=== PATIENT | male | born 1955 | race Two or more races ===

== ENCOUNTER → 2020-01-31 09:23 | Outpatient (BNVA) | payer OTHER, SELFPAY | PROVIDERS: PCP Internal Medicine; Visit Provider Orthopaedic Surgery | DX: M25.562 Pain in left knee (principal) | CPT/HCPCS: 99202 ==

== ENCOUNTER 2020-02-07 12:13 | Outpatient (REF) | payer OTHER, SELFPAY ==
--- NOTE | 2020-02-07 12:11 | CT_ITS ---
EXAMINATION: CT ABDOMEN AND PELVIS WITH CONTRAST CLINICAL INFORMATION: Epigastric pain and weight loss. COMPARISON: Prior CT examinations of the CT abdomen and pelvis, most recently 06/12/2016. TECHNIQUE: Multidetector volumetric images were obtained from the superior aspect of the liver through the pubic symphysis following administration 85 mL of Omnipaque 350 intravenous contrast. Sagittal and coronal reformatted images were obtained on the technologist's workstation. Oral contrast: No This CT examination was performed using dose optimization techniques as appropriate, variously including the following: *Automated exposure control *Adjustment of mA and/or kV according to patient size (this includes techniques or standardized protocols for targeted exams where dose is matched to indication/reason for exam; i.e. extremities or head) *Use of iterative reconstruction technique DLP: 3:15 mGy-cm FINDINGS: LUNG BASES: The visualized lung bases are unremarkable. There are coronary artery atherosclerotic calcifications. LIVER, GALLBLADDER, AND BILIARY TREE: The liver is normal in size, shape, and attenuation. No focal hepatic lesion or biliary ductal dilatation is present. The gallbladder is unremarkable with no evidence of radiopaque gallstones, gallbladder wall thickening, or obvious pericholecystic inflammatory changes. PANCREAS: Unremarkable. SPLEEN: Unremarkable. ADRENAL GLANDS: Unremarkable. KIDNEYS AND URETERS: The kidneys are normal in size, shape, and attenuation. No hydronephrosis, hydroureter, or calculi seen. There are stable small low-attenuation bilateral renal probable cysts, too small to fully characterize with CT. Given their stability from 01/15/2015, these are considered benign. No perinephric stranding. BLADDER: Unremarkable. GASTROINTESTINAL TRACT: The small and large bowel are unremarkable. There is no bowel obstruction, free intraperitoneal air or abscess. No diverticulosis or diverticulitis is seen. The vermiform appendix is not visualized with certainty. ABDOMINAL WALL: No significant hernia is appreciated. LYMPH NODES: Normal. VASCULAR: There is mild aortoiliac atherosclerotic calcification. No abdominal aortic aneurysm is seen. PELVIC VISCERA: The prostate and seminal vesicles are unremarkable. OSSEOUS STRUCTURES: There is multi-level thoracolumbar spondylosis, most pronounced at T11-T12. No acute or aggressive osseous abnormality is seen. IMPRESSION: No acute intra-abdominal finding is seen. There is no bowel obstruction, free intraperitoneal air or abscess. No mass, free fluid or lymphadenopathy is seen. There is no urinary calculus or obstructive uropathy. There are coronary artery atherosclerotic calcifications.
[2020-02-07] MEDS: Barium Sulfate Oral (Berry) 450 ML ORAL.SUSP 900 ML PO (15:08)
== END 2020-02-07 12:14 | disposition home or self-care (01) ==
LOC: HO.CT 12:13
PROVIDERS: PCP Internal Medicine; Visit Provider Internal Medicine
DX: R10.84 Generalized abdominal pain (principal)
CPT/HCPCS: 74177

== ENCOUNTER 2020-09-30 07:49 | Outpatient (REF) | payer MEDICARE, MEDICAID, SELFPAY ==
[2020-09-30 08:58] LABS: MANUAL DIFF FLAG NO
[2020-09-30 09:13] LABS: Basophils Percent Auto 0.7 % (0-2); Eosinophils Absolute Auto 0.1 X10*3/uL (0.0-0.4); Eosinophils Percent Auto 2.4 % (0-4); Hematocrit 44.4 % (42-52); Hemoglobin 15.1 g/dl (14.0-18.0); Imm Gran Abs Auto 0.02 X10*3/uL (0.00-0.03); Imm Gran Pct Auto 0.4 % (0.0-0.4); Lymphocytes Absolute Auto 2.5 X10*3/uL (1.2-4.9); Lymphocytes Percent Auto 46.2 % (20-40); Mean Corpuscular Hemoglobin 31.5 pg (27.0-33.0); Mean Corpuscular Volume 92.5 fL (80-98); Mean Platelet Volume 10.4 fL (9.4-12.4); Monocytes Absolute Auto 0.5 X10*3/uL (0.1-1.2); Monocytes Percent Auto 9.3 % (2-11); Neutrophils Absolute Auto 2.3 X10*3/uL (2.0-8.3); Platelet Count 211 X10*3/uL (160-400); Red Cell Distribution Width 13.4 % (11.0-16.0); White Blood Count 5.5 X10*3/uL (4.8-10.8)
[2020-09-30 09:28] LABS: Alanine Aminotransferase 9 U/L (0-40); Albumin Level 3.9 g/dL (3.5-5.0); Alkaline Phosphatase 63 U/L (39-117); Anion Gap 12 (12-20); Aspartate Amino Transferase 13 U/L (5-37); Bilirubin Total 0.7 mg/dL (0.0-1.0); Blood Urea Nitrogen 19 mg/dL (9-16); Calcium 8.8 mg/dL (8.4-10.2); Carbon Dioxide 26 mmol/L (22-29); Chloride 107 mmol/L (96-108); Cholesterol 184 mg/dL; Estimated Glomerular Filt Rate > 60; Glucose Fasting 100 mg/dL (60-99); HDL Cholesterol 33 mg/dL; LDL Cholesterol Calculated 134 mg/dl; Potassium 4.5 mmol/L (3.3-5.1); Sodium 140 mmol/L (135-145); Total Protein 6.8 g/dL (6.5-8.0); Triglycerides 86 mg/dL
== END 2020-09-30 07:50 | disposition home or self-care (01) ==
LOC: HO.LAB 07:49
PROVIDERS: PCP Internal Medicine; Visit Provider Internal Medicine
DX: Z00.01 Encounter for general adult medical examination with abnormal findings (principal); E78.00 Pure hypercholesterolemia, unspecified; I10 Essential (primary) hypertension; M23.92 Unspecified internal derangement of left knee; Z95.1 Presence of aortocoronary bypass graft
CPT/HCPCS: 36415; 80053; 80061; 85025

== ENCOUNTER 2020-10-20 08:19 | Outpatient (REF) | payer MEDICARE, MEDICAID, SELFPAY | END 2020-10-20 08:20 | disposition home or self-care (01) | LOC: HO.HOSX 08:19 | PROVIDERS: Visit Provider Orthopaedic Surgery | DX: Z13.89 Encounter for screening for other disorder (principal) ==

== ENCOUNTER 2021-01-02 08:19 | Emergency (ER) | payer MEDICARE, MEDICAID, SELFPAY ==
[2021-01-02 08:23] VITALS: BP 148/87; PULSE 70; RESP 18; TEMP 36.8; O2SAT 98; BMI 23.8
[2021-01-02] MEDS: Acetaminophen 325 MG TABLET 650 MG PO (08:54)
--- NOTE | 2021-01-02 09:16 | ED.URI ---
HPI - URI/Sore Throat General Chief Complaint: Upper Respiratory Symptoms Stated Complaint: NASAL CONGESTION CHEST DISCOMPFORT Time Seen by Provider: 01/02/21 08:40 Source: patient Mode of arrival: ambulatory History of Present Illness HPI Narrative: 65-year-old male w/ past medical history of CAD s/p cardiac catheterization x3 presenting to the ED complaining subjective fever, chills, headache, myalgias, dry cough x3 days s/p receiving the flu vaccine on Tuesday. Denies CP/SOB, abdominal pain, recent travel, COVID-19 exposure, ear pain, throat pain MD elicited complaint: cough and nasal congestion Related Data Home Medications Medication Instructions Recorded Confirmed atorvastatin 80 mg tablet 80 mg PO DAILY 01/31/20 clonazepam 0.5 mg tablet 0.5 mg PO BID PRN 01/31/20 lisinopril 5 mg tablet 5 mg PO DAILY 01/31/20 metoprolol tartrate 25 mg tablet 25 mg PO BID 01/31/20 Allergies Allergy/AdvReac Type Severity Reaction Status Date / Time No Known Allergies Allergy Verified 01/31/20 09:45 [No Known Allergies*] Review of Systems Review of Systems: Constitutional: No Fever, No Chills ENT/Mouth: No Ear Pain, + Nasal Congestion, No Sinus Pain, No Hoarseness, No sore throat, + Rhinorrhea, No Swallowing Difficulty Cardiovascular: No Chest Pain, No SOB Respiratory: + Cough, No Sputum, No Wheezing Gastrointestinal: No Nausea, No Vomiting, No Diarrhea, No Constipation, No Abdominal pain Genitourinary: No Dysuria, No Urinary Frequency, No Hematuria Musculoskeletal: No joint pain, + Myalgias, No Joint Swelling Skin: No Skin Lesions, No rash Neuro: No Weakness, No Numbness, No Paresthesias Yes all other systems are reviewed and are negative [facility] Past Medical History Attestation statement: The following information was validated with the patient. Medical History (Updated 01/02/21 @ 10:07 by ENOCH Granado) Left knee pain Surgical History History of cardiac catheterization (~2006) History of colonoscopy (~2018) S/P CABG x 3 (~2017) Social History Social History Advance Directives: No Advance Directives Information Provided: No Physical Exam Vital Signs: Vital Signs: Last Vital Signs Temp 98.3 F 01/02/21 08:23 Pulse 70 01/02/21 08:23 Resp 18 01/02/21 08:23 BP 148/87 H 01/02/21 08:23 Pulse Ox 98 01/02/21 08:23 Body Mass Index 23.8 Const: General: cooperative, healthy appearing and no acute distress Orientation/consciousness: patient oriented x3 Limitations: no limitations HENMT: Head: Yes normal to inspection Ears: hearing grossly normal bilaterally and external ears normal General nose exam: Normal external nose present Face and sinus: Yes normal facial exam Mouth: Normal oral and palatal mucosa present Throat: Yes posterior oropharynx normal, Yes tonsils normal, Yes uvula midline, No peritonsillar mass and No uvular edema Eyes: General: appearance normal, both eyes and all related structures EOM: EOMs intact bilaterally Neck: Neck: Yes normal visual inspection and Yes no lymphadenopathy Resp: Effort & Inspection: normal respiratory effort Auscultation: clear to auscultation bilaterally, no rales, no rhonchi and no wheezes Cardio: Rate: regular rate Heart sounds: S1 normal heart sound present and S2 normal heart sound present GI: Inspection: Yes normal to inspection Palpation (GI): Soft to palpation, nontender, no guarding and not rigid Skin: Rashes: no rashes Wounds: no wounds Neuro: General: patient oriented x3 Gait exam (Neuro): Normal gait present Extrem: Other: No erythema/cellulitis or ecchymosis at left deltoid injection site General: Yes normal to inspection Course Course Course Narrative: -patient is COVID-19 positive >> discussed with patient with mailroom coordinator. Discussed self isolation, worrisome signs and symptoms and strict return precautions, he verbalized understanding feel safe for discharge home MDM - URI/Sore Throat MDM Narrative Medical decision making narrative: 65-year-old male w/ past medical history of CAD s/p cardiac catheterization x3 presenting to the ED complaining subjective fever, chills, headache, myalgias, dry cough x3 days s/p receiving the flu vaccine on Tuesday. On exam vital signs stable, NAD/nontoxic appearing, lungs CTA. Likely side effect of flu vaccination. Will obtain COVID-19/influenza/RSV swab to rule out active viral syndrome. Lab Data Labs: Lab Results 01/02/21 Range/Units 08:51 Coronavirus (PCR) POSITIVE A (Negative) Influenza Type A (PCR) NEGATIVE (Negative) Influenza Type B (PCR) NEGATIVE (Negative) RSV RNA Qual (PCR) NEGATIVE (Negative) Discharge Plan Discharge Clinical Impression: COVID-19 Patient Disposition: Home, Self-Care Instructions: COVID-19 (Coronavirus Disease 2019) (ED) Additional Instructions: YOU HAVE COVID-19 At this time you will be okay for discharge. Please plan for self quarantine for 10 -14 days. Do not expose yourself to others. You may not go to work. Please continue to follow cold instructions and wash your hands frequently. You may take Tylenol as directed on the bottle for pain or fever. IF YOU DEVELOP ANY PERSISTENT OR WORSENING SHORTNESS OF BREATH, CHEST PAIN, OR FEVER UNRESOLVED WITH TYLENOL/MOTRIN AT HOME PLEASE RETURN TO THE ED CDC Guidelines for home isolation: - Stay away from others - WEAR A MASK if you are sick AND STAY HOME - Cover your mouth and nose with a tissue when you cough or sneeze. Dispose of tissues in a lined trash can and wash your hands immediately with soap and water for at least 20 seconds. If soap and water are not available, clean hands with alcohol-based hand certified legal investigator that contains at least 60% alcohol. - Clean your hands often with soap and water for at least 20 seconds - Avoid touching your eyes, nose and mouth with unwashed hands - Do not share dishes, drinking glasses, cups, eating utensils, towels, or bedding with other people in your home. After using these items, wash them thoroughly with soap and water or put in the electronic publishing specialist. - Clean high-touch surfaces in your isolation area ( sick room and bathroom) every day; let a caregiver clean and disinfect high-touch surfaces in other areas of the home. Clean the area or item with soap and water or another detergent if it is dirty. Then, use a household disinfectant. - Limit contact with pets and animals: If you must care for a pet, wash your hands before and after interacting with them) TIENE COVID-19 En rossana momento estar? fermin para el davin. Planifique la auto cuarentena joi 10 a 14 d?as. No se exponga a los dem?s. Puede que no vaya a trabajar. Contin?e siguiendo las instrucciones en fr?o y l?vese las mario con frecuencia. Puede dinorah Tylenol isaias se indica en el frasco para el dolor o la fiebre. SI USTED DESARROLLA CUALQUIER DIFICULTAD AL RESPIRAR, DOLOR EN EL PECHO O FIEBRE QUE NO SE RESUELVE CON TYLENOL / MOTRIN EN CASA, POR FAVOR REGRESE AL ED. Pautas de los CDC para el aislamiento en el hogar: - Mantente alejado de los dem?s. - USE POLY M?SCARA si est? enfermo Y QU?DESE EN CASA - C?brase la boca y la nariz con un pa?uelo cuando tosa o estornude. Deseche los pa?uelos desechables en un bote de basura forrado y l?vese las mario inmediatamente con agua y jab?n joi al menos 20 segundos. Si no dispone de agua y jab?n, l?vese las mario con un desinfectante para mario a base de alcohol que contenga al menos un 60% de alcohol. - L?vese las mario con frecuencia con agua y jab?n joi al menos 20 segundos. - Evite tocarse los ojos, la nariz y la boca con las mario sin veronique. - No comparta platos, vasos, tazas, cubiertos, toallas o ropa de cama con otras personas en rivas hogar. Despu?s de usar estos art?culos, l?velos fermin con agua y jab?n o col?quelos en el lavavajillas. - Limpie las superficies de alto contacto en rivas ?sera de aislamiento ( habitaci?n de enfermo y ba?o) todos los d?as; deje que un cuidador limpie y desinfecte las superficies de alto contacto en otras ?reas de la casa. Limpie el ?sera o el art?culo con agua y jab?n u otro detergente si est? sucio. Luego, use un desinfectante dom?stico. - Limite el contacto con mascotas y animales: si debe cuidar a poly mascota, l?vese las mario antes y despu?s de interactuar con ellos) Referrals: Telma Funez A [Emergency Nurse] - 3 days (call) Print Language: Marshallese
[2021-01-02 09:33] LABS: Influenza A PCR NEGATIVE (Negative); Influenza B PCR NEGATIVE (Negative); Resp Syncy Virus RNA Qual PCR NEGATIVE (Negative); SARS COV2 PCR INHOUSE POSITIVE (Negative)
== END 2021-01-02 10:35 | disposition home or self-care (01) ==
PROVIDERS: Physician Assistant; Emergency Provider Student in an Organized Health Care Education/Training Program; PCP Internal Medicine
DX: U07.1 COVID-19 (principal); R05 Cough; I25.10 Atherosclerotic heart disease of native coronary artery without angina pectoris; R51.9 Headache, unspecified; M79.10 Myalgia, unspecified site; Z79.899 Other long term (current) drug therapy
CPT/HCPCS: 0241U; 36415; 99283

== ENCOUNTER 2021-02-03 08:30 | Outpatient (REF) | payer MEDICARE, MEDICAID, SELFPAY | END 2021-02-03 08:31 | disposition home or self-care (01) | LOC: HO.LAB 08:30 | PROVIDERS: PCP Internal Medicine; Visit Provider Internal Medicine | DX: Z20.822 Contact with and (suspected) exposure to COVID-19 (principal) | CPT/HCPCS: C9803; U0003; U0005 ==

== ENCOUNTER → 2021-03-23 08:23 | Outpatient (REF) | payer MEDICARE, MEDICAID, SELFPAY ==
--- NOTE | ~2021-03-23 | NM_ITS ---
Lexiscan Myocardial perfusion study Indication: Coronary disease, history of sestamibi, assess for ischemia Technique: The patient was brought in for a Lexiscan perfusion study on 03/23/2021 and was injected 0.4 mg of Lexiscan intravenously. Within a minute of this injection 25 mCi of sestamibi was given intravenously. Images were obtained using the SPECT gamma camera interlaced with the gating device. Images were obtained in supine position. Resting perfusion study was performed on 03/24/2021. Patient was administered 25 mCi of sestamibi intravenously at rest. Images were then obtained in supine position. Total DLP 87mGy-cm. Images were processed with the software and compared side to side in short axis, horizontal long axis and vertical long axis views. Findings: Raw acquisition was reviewed. The stress perfusion study showed no significant perfusion abnormality. Both uncorrected as well as CT attenuation corrected images were reviewed. The gated study shows normal LV systolic function with calculated LVEF of 63%. LV cavity is normal in size. The gated study shows normal wall thickening and contraction of segments. Resting study shows no significant perfusion abnormality. Gating at rest reveals normal wall motion with ejection fraction at 47%. The findings are consistent with no reversible or fixed perfusion abnormality. NM/NM cary perf SPECT rest & str Impression: 1. Myocardial perfusion imaging study shows normal myocardial perfusion. 2. Gated LVEF is 63% during stress and 47% during rest. 3. Transient ischemic dilatation not present. EKG component of the test reported separately.
--- NOTE | 2021-03-23 08:27 | CA_ITS ---
Acquisition Time: 2021-03-23 08:27:55 Total Exercise Time: 00:06:18 Test Indications: Ischemia Evaluation Medications: SEE H Protocol: OSCAR Max HR: 121 BPM 79% of Pred: 153 BPM Max BP: 122/080 mmHG Max Work Load: 7.4 METS Exercise stress test with exercise 6 min 18 sec of Oscar protocol, with report of fatigue and need to slow exercise, with blunted chronotropic response achieving only 64% of MPHR, EKGs nondiagnostic for ischemia. Treadmill placed in nrecovery and slowed to 1 MPH, for additional 2.5 min. Testing changed to a pharmacological stress test with Lexiscan injection, without anginal symptoms, with atrial cuplets at times with intermittent RBBB, with normotensive response to injection, with nondiagnostic EKG for ischemia. Nuclear images pending. Test reviewed with Dr Daniel. Referred By: Gustavo Romo Overread By: CHARAN STARK
== END ==
LOC: HO.CARD 08:23
PROVIDERS: Visit Provider Internal Medicine Cardiovascular Disease
DX: I25.2 Old myocardial infarction (principal); I25.758 Atherosclerosis of native coronary artery of transplanted heart with other forms of angina pectoris; I10 Essential (primary) hypertension
CPT/HCPCS: 78452; 93017; A9500; J0280; J2785

== ENCOUNTER 2021-03-27 12:46 | Outpatient (REF) | payer MEDICARE, MEDICAID, SELFPAY ==
[2021-03-27 13:43] LABS: COVID-19 Test Negative (Negative)
== END 2021-03-27 12:47 | disposition home or self-care (01) ==
LOC: HO.LAB 12:46
PROVIDERS: PCP Internal Medicine; Visit Provider Internal Medicine
DX: Z20.822 Contact with and (suspected) exposure to COVID-19 (principal)
CPT/HCPCS: 36415; 87635; C9803

== ENCOUNTER 2021-04-16 08:17 | Outpatient (REF) | payer MEDICARE, MEDICAID, SELFPAY | END 2021-04-16 08:18 | disposition home or self-care (01) | LOC: HO.LAB 08:17 | PROVIDERS: PCP Internal Medicine; Visit Provider Internal Medicine | DX: Z13.89 Encounter for screening for other disorder (principal) ==

== ENCOUNTER 2021-08-25 07:58 | Outpatient (REF) | payer OTHER, MEDICAID, SELFPAY ==
[2021-08-25 09:18] LABS: Alanine Aminotransferase 14 U/L (0-40); Alkaline Phosphatase 61 U/L (39-117); Anion Gap 9 (12-20); Aspartate Amino Transferase 19 U/L (5-37); Bilirubin Total 1.1 mg/dL (0.0-1.0); Blood Urea Nitrogen 15 mg/dL (9-16); Calcium 9.1 mg/dL (8.4-10.2); Carbon Dioxide 28 mmol/L (22-29); Chloride 107 mmol/L (96-108); Cholesterol 114 mg/dL; Estimated Glomerular Filt Rate > 60; Glucose Random 101 mg/dL (60-115); HDL Cholesterol 34 mg/dL; LDL Cholesterol Calculated 63 mg/dl; Potassium 4.6 mmol/L (3.3-5.1); Sodium 139 mmol/L (135-145); Total Protein 6.9 g/dL (6.5-8.0); Triglycerides 85 mg/dL
[2021-08-25 09:40] LABS: Prostate Specific Antigen 2.41 ng/mL (<0.05-4.0); TSH reflex Free T4 1.74 uIU/mL (0.32-4.0)
== END 2021-08-25 07:59 | disposition home or self-care (01) ==
LOC: HO.LAB 07:58
PROVIDERS: PCP Internal Medicine; Visit Provider Internal Medicine
DX: Z12.5 Encounter for screening for malignant neoplasm of prostate (principal); E05.90 Thyrotoxicosis, unspecified without thyrotoxic crisis or storm; E78.00 Pure hypercholesterolemia, unspecified; I10 Essential (primary) hypertension; N40.1 Benign prostatic hyperplasia with lower urinary tract symptoms; Z95.1 Presence of aortocoronary bypass graft
CPT/HCPCS: 36415; 80053; 80061; 84153; 84443

== ENCOUNTER 2021-09-14 08:48 | Outpatient (RCR) | payer OTHER, MEDICAID, SELFPAY ==
[2021-09-14 09:05] VITALS: BP 140/82; PULSE 57
--- NOTE | 2021-09-14 09:56 | MHC.PT.EP ---
[facility] [place] [facility] [place] [facility] [place] Office [address] [phone] F: [phone] F: [phone] F: [phone] F: [phone] Physical Therapy Plan of Care Date of Evaluation: Date of Surgery: NA Diagnosis: Quadriceps tendinitis L knee Assessment: David is a 65 year old male who is referred to PT for quadriceps tendinitis of L knee . He reports of having pain in L knee for the last 2 years following a fall on his knee. He was in PT for the same about 2 years back but had no change in symptoms. He has returned to PT as his symptoms have been getting worse. On PT examination he presents with 6/10 pain starting from his knee and traveling to his low back- L side, TTP over L SI, L distal end of quad, decreased knee and lumbar ROM, decreased muscle strength, altered pelvic symmetry, altered posture, and gait. He is independent with all ADLS but modifies them due to pain. He is retired. He would benefit from skilled PT to address the aforementioned impairments and improve tolerance to functional activities. Frequency and Duration: The patient will be seen 2/week for 5 weeks. Short Term Goals: 1. Pt will have 50% decrease in pain which will help him sleep through the night in 2 weeks 2. Pt will be able to move his trunk and knee through all planes of motion of motion which will help him dress himself without pain in 3 weeks Retirement Goals: 1. Pt will demonstrate an increase in muscle strength by 1 grade which will help him walk,and stand without pain in 4 weeks. 2. Pt will return to PLOF in 5 weeks. Treatment Plan: Modalities to reduce pain, spasms and effusion. Manual therapy to restore motion and function. Therapeutic exercise to improve strength and flexibility. Neuromuscular re-education for posture and balance. Therapeutic activities to return to functional activities of daily living. Electronically signed by: Hui Arceo PT DPT Please sign and return to therapist. Thank you for your referral.
--- NOTE | 2021-09-29 15:47 | MHC.PT.DC ---
[facility] [place] [facility] [place] [facility] [place] [facility] [address] [phone] F: [phone] F: [phone] F: [phone] F: [phone] Physical Therapy Discharge Report Diagnosis: Quadriceps tendinitis L knee Date of Surgery: NA Date of Evaluation: 09/14/21 Date of Discharge: 09/29/21 Treatments to Date: 1 Cancellations to Date: 0 No Shows to Date: 0 Discharge Status: Patient Elected to Stop Discharge Summary: David d/c himself from PT stating he found a PT clinic closer to his house. Electronically signed by: Hui Arceo PT DPT Please sign and return to therapist. Thank you for your referral.
== END 2021-09-29 15:48 | disposition home or self-care (01) ==
LOC: HO.PT 08:48
PROVIDERS: PCP Internal Medicine; Visit Provider Internal Medicine
DX: M76.9 Unspecified enthesopathy, lower limb, excluding foot (principal)
CPT/HCPCS: 97110; 97140; 97161

== ENCOUNTER → 2021-10-29 10:35 | Outpatient (BNVA) | payer OTHER, MEDICAID, SELFPAY | PROVIDERS: PCP Internal Medicine; Visit Provider Urology | DX: N40.1 Benign prostatic hyperplasia with lower urinary tract symptoms (principal); N13.8 Other obstructive and reflux uropathy; N52.9 Male erectile dysfunction, unspecified | CPT/HCPCS: 51798; 99202 ==

== ENCOUNTER 2022-01-20 09:41 | Outpatient (REF) | payer OTHER, MEDICAID, SELFPAY ==
[2022-01-20 10:26] LABS: COVID-19 Test Negative (Negative)
== END 2022-01-20 09:42 | disposition home or self-care (01) ==
LOC: HO.LAB 09:41
PROVIDERS: Visit Provider Internal Medicine
DX: Z20.822 Contact with and (suspected) exposure to COVID-19 (principal)
CPT/HCPCS: 87635; C9803

== ENCOUNTER → 2022-01-29 08:36 | Outpatient (BNVA) | payer OTHER, MEDICAID, SELFPAY | PROVIDERS: PCP Internal Medicine; Visit Provider Urology | DX: N40.1 Benign prostatic hyperplasia with lower urinary tract symptoms (principal); N13.8 Other obstructive and reflux uropathy; N52.9 Male erectile dysfunction, unspecified | CPT/HCPCS: Q3014 ==

== ENCOUNTER 2022-03-08 12:15 | Outpatient (REF) | payer OTHER, MEDICAID, SELFPAY ==
--- NOTE | ~2022-03-08 | XR_ITS ---
EXAMINATION: XR KNEE, LEFT XR KNEE AP STANDING CLINICAL INFORMATION: Pain. COMPARISON: Radiographs dated 05/25/2016. TECHNIQUE: Lateral and axial views of the left knee. AP bilateral standing view of the knees was obtained. FINDINGS: Bones and soft tissues are normal. No fracture or dislocation. There is no left knee joint effusion. There are surgical clips within the medial right knee soft tissues. Alignment is anatomic, without varus or valgus configuration. Joint spaces are well maintained. No abnormal soft tissue calcification. XR/XR knee LT 2V IMPRESSION: Unremarkable left knee radiographs and AP view of the bilateral knees. No unusual degenerative change is seen. This no significant varus or valgus configuration noted bilaterally.
--- NOTE | ~2022-03-08 | XR_ITS ---
EXAMINATION: XR KNEE, LEFT XR KNEE AP STANDING CLINICAL INFORMATION: Pain. COMPARISON: Radiographs dated 05/25/2016. TECHNIQUE: Lateral and axial views of the left knee. AP bilateral standing view of the knees was obtained. FINDINGS: Bones and soft tissues are normal. No fracture or dislocation. There is no left knee joint effusion. There are surgical clips within the medial right knee soft tissues. Alignment is anatomic, without varus or valgus configuration. Joint spaces are well maintained. No abnormal soft tissue calcification. XR/XR knee standing BI IMPRESSION: Unremarkable left knee radiographs and AP view of the bilateral knees. No unusual degenerative change is seen. This no significant varus or valgus configuration noted bilaterally.
== END 2022-03-08 12:16 | disposition home or self-care (01) ==
LOC: HO.HOSX 12:15
PROVIDERS: Visit Provider Orthopaedic Surgery
DX: M25.562 Pain in left knee (principal)
CPT/HCPCS: 20610; 73560; 73565; 99212; J1100

== ENCOUNTER 2022-08-03 07:22 | Outpatient (REF) | payer OTHER, MEDICAID, SELFPAY ==
[2022-08-03 08:38] LABS: Prostate Specific Antigen 3.04 ng/mL (<0.05-4.0)
== END 2022-08-03 07:23 | disposition home or self-care (01) ==
LOC: HO.LAB 07:22
PROVIDERS: PCP Internal Medicine; Visit Provider Urology
DX: N40.1 Benign prostatic hyperplasia with lower urinary tract symptoms (principal); N13.8 Other obstructive and reflux uropathy; Z12.5 Encounter for screening for malignant neoplasm of prostate
CPT/HCPCS: 36415; 84153

== ENCOUNTER → 2022-08-04 15:23 | Outpatient (BNVA) | payer OTHER, MEDICAID, SELFPAY | PROVIDERS: PCP Internal Medicine; Visit Provider Urology | DX: N40.1 Benign prostatic hyperplasia with lower urinary tract symptoms (principal); N13.8 Other obstructive and reflux uropathy; N52.9 Male erectile dysfunction, unspecified | CPT/HCPCS: 99212 ==

== ENCOUNTER 2022-09-30 07:02 | Outpatient (REF) | payer OTHER, MEDICAID, SELFPAY ==
[2022-09-30 07:12] LABS: MANUAL DIFF FLAG NO
[2022-09-30 07:34] LABS: Basophils Percent Auto 0.7 % (0-2); Eosinophils Absolute Auto 0.1 X10*3/uL (0.0-0.4); Eosinophils Percent Auto 2.1 % (0-4); Hemoglobin 15.1 g/dl (14.0-18.0); Imm Gran Abs Auto 0.02 X10*3/uL (0.00-0.03); Imm Gran Pct Auto 0.3 % (0.0-0.4); Lymphocytes Absolute Auto 2.6 X10*3/uL (1.2-4.9); Lymphocytes Percent Auto 45.6 % (20-40); Mean Corpuscular HGB Conc 34.3 g/dl (31.0-36.0); Mean Corpuscular Hemoglobin 31.2 pg (27.0-33.0); Mean Corpuscular Volume 90.9 fL (80.0-98.0); Mean Platelet Volume 10.6 fL (9.4-12.4); Monocytes Absolute Auto 0.6 X10*3/uL (0.1-1.2); Monocytes Percent Auto 10.8 % (2-11); Neutrophils Absolute Auto 2.3 x10*3/uL (2.0-8.3); Neutrophils Percent Auto 40.5 % (45-73); Platelet Count 176 X10*3/uL (160-400); Red Blood Count 4.84 X10*6/uL (4.60-5.80); Red Cell Distribution Width 13.8 % (11.0-16.0); White Blood Count 5.7 X10*3/uL (4.8-10.8)
[2022-09-30 08:48] LABS: Alanine Aminotransferase 16 U/L (0-40); Alkaline Phosphatase 76 U/L (39-117); Anion Gap 11 (12-20); Aspartate Amino Transferase 22 U/L (5-37); Bilirubin Total 0.9 mg/dL (0.0-1.0); Blood Urea Nitrogen 15 mg/dL (9-16); Calcium 9.1 mg/dL (8.4-10.2); Carbon Dioxide 25 mmol/L (22-29); Chloride 108 mmol/L (96-108); Cholesterol 100 mg/dL; Estimated Glomerular Filt Rate > 60; Glucose Random 104 mg/dL (60-115); HDL Cholesterol 29 mg/dL; LDL Cholesterol Calculated 55 mg/dl; Potassium 4.4 mmol/L (3.3-5.1); Sodium 140 mmol/L (135-145); Total Protein 7.1 g/dL (6.5-8.0); Triglycerides 83 mg/dL
== END 2022-09-30 07:03 | disposition home or self-care (01) ==
LOC: HO.LAB 07:02
PROVIDERS: PCP Internal Medicine; Visit Provider Internal Medicine
DX: E78.00 Pure hypercholesterolemia, unspecified (principal); I10 Essential (primary) hypertension; M76.52 Patellar tendinitis, left knee
CPT/HCPCS: 36415; 80053; 80061; 85025

== ENCOUNTER 2023-01-26 09:24 | Outpatient (REF) | payer OTHER, MEDICAID, SELFPAY ==
[2023-01-26 14:48] LABS: MANUAL DIFF FLAG NO
[2023-01-26 15:05] LABS: Basophils Percent Auto 0.7 % (0-2); Eosinophils Absolute Auto 0.1 X10*3/uL (0.0-0.4); Eosinophils Percent Auto 2.3 % (0-4); Hematocrit 44.6 % (42.0-52.0); Lymphocytes Absolute Auto 2.1 X10*3/uL (1.2-4.9); Lymphocytes Percent Auto 47.5 % (20-40); Mean Corpuscular HGB Conc 33.6 g/dl (31.0-36.0); Mean Corpuscular Hemoglobin 31.3 pg (27.0-33.0); Mean Corpuscular Volume 93.1 fL (80.0-98.0); Monocytes Absolute Auto 0.4 X10*3/uL (0.1-1.2); Monocytes Percent Auto 9.4 % (2-11); Neutrophils Absolute Auto 1.7 x10*3/uL (2.0-8.3); Neutrophils Percent Auto 40.1 % (45-73); Platelet Count 144 X10*3/uL (160-400); Red Blood Count 4.79 X10*6/uL (4.60-5.80); Red Cell Distribution Width 14.5 % (11.0-16.0); White Blood Count 4.3 X10*3/uL (4.8-10.8)
[2023-01-26 15:39] LABS: Alanine Aminotransferase 10 U/L (0-40); Albumin Level 4.1 g/dL (3.5-5.0); Alkaline Phosphatase 76 U/L (39-117); Anion Gap 11 (12-20); Aspartate Amino Transferase 20 U/L (5-37); Bilirubin Total 1.3 mg/dL (0.0-1.0); Blood Urea Nitrogen 18 mg/dL (9-16); C Reactive Protein < 0.04 mg/dL (< or = 0.50); Calcium 9.1 mg/dL (8.4-10.2); Carbon Dioxide 27 mmol/L (22-29); Chloride 107 mmol/L (96-108); Cholesterol 135 mg/dL (<200); Estimated Glomerular Filt Rate > 60; Glucose Random 88 mg/dL (60-115); HDL Cholesterol 30 mg/dL (>40); LDL Cholesterol Calculated 87 mg/dL (<100); Potassium 4.1 mmol/L (3.3-5.1); Sodium 141 mmol/L (135-145); Thyroid Stimulating Hormone 2.14 uIU/mL (0.32-4.0); Total Protein 7.4 g/dL (6.5-8.0); Triglycerides 93 mg/dL (<150)
[2023-01-27 04:31] LABS: HIV AB/AG Nonreactive (Nonreactive); HIV Num 1 0.05 S/CO (0.00-0.99); ~HepC Num1 0.07 S/CO (0.00-0.79); ~Hepatitis C Antibody Nonreactive (Nonreactive)
== END 2023-01-26 09:25 | disposition home or self-care (01) ==
LOC: HO.CHCLDS 09:24
PROVIDERS: Visit Provider Family Medicine
DX: I25.708 Atherosclerosis of coronary artery bypass graft(s), unspecified, with other forms of angina pectoris (principal); R10.84 Generalized abdominal pain; E66.3 Overweight
CPT/HCPCS: 36415; 80053; 80061; 84443; 85025; 86140; 86803; 87389

== ENCOUNTER 2023-02-01 11:54 | Outpatient (REF) | payer OTHER, MEDICAID, SELFPAY ==
[2023-02-06 17:23] LABS: Calprotectin, Fecal 83 mcg/g
== END 2023-02-01 11:55 | disposition home or self-care (01) ==
LOC: HO.CHCLNP 11:54
PROVIDERS: Visit Provider Family Medicine
DX: R10.84 Generalized abdominal pain (principal)
CPT/HCPCS: 36415; 83993; 87329

== ENCOUNTER 2023-02-03 09:44 | Outpatient (AMB) | payer OTHER, MEDICAID, SELFPAY ==
--- NOTE | 2023-02-03 09:46 | A.OFFVIS_ITS ---
Intake Intake Visit Reasons: 6M PVR(BPH/Erectile Dys) Intake Note: Patient is present for 6 MO PVR/BPH/ED Current Medication: Tadalafil Blood Thinners: None PVR: 15 mL Taxi Servicer Required: No Accompanied by: Self / Same As Patient Allergies No Known Allergies [No Known Allergies*] Allergy (Verified 10/29/21 11:02) Medication List - Last Reconciled 02/03/23 by Juan Mcclure MD atorvastatin 80 mg PO DAILY clonazepam 0.5 mg PO BID PRN lisinopril 5 mg PO DAILY metoprolol tartrate 25 mg PO BID tadalafil 5 mg PO DAILY PRN 90 days HPI HPI Comments History of Present Illness Details David is a pleasant male. He is a patient of . He is seen for the following urologic conditions - erectile dysfunction - lower urinary tract symptoms Citizen Of [place] translation provided in office by qualified medical oncologist Continue effective voiding Continue effective erections - represcribed tadalafil Check PSA in 6 months since marginally elevated Erectile dysfunction Reports gradually failing erections Able to obtain but cannot maintain erection Success with daily tadalafil 5 mg Lower urinary tract symptoms Mild hesitancy Minimal nocturia Adequate stream incomplete emptying PSA 08/21 2.4, 08/22 3.0 PFSH Medical History Colitis Coronary artery disease involving coronary bypass graft of [place] heart Decrease in appetite H/O urinary retention HTN (hypertension) Hyperlipidemia Left knee pain Peripheral tear of medial meniscus of left knee Surgical History History of colonoscopy (~2018) S/P CABG x 3 (~2017) History of cardiac catheterization (~2006) Family History (Updated 02/03/23 @ 09:55 by JOE Fuentes) Father No problems noted. Mother No problems noted. Social History (Updated 02/03/23 @ 09:55 by JOE Fuentes) Alcohol intake: current Alcohol intake frequency: does not drink Patient Tobacco Use Status: Never used Tobacco Review of Systems Const Denies chills and Denies fever(s) Card Reports no additional complaints and Denies syncope Resp Denies cough GI Denies abdominal pain and Denies heartburn Reports as per HPI and Denies change in libido Neuro Denies syncope Psych Denies change in libido Endo Denies change in libido Physical Exam Const General: cooperative, healthy appearing, comfortable and no acute distress Orientation/consciousness: patient oriented x3 HEENT Face and sinus: Yes normal facial exam Mouth: moist mucous membranes Neck Neck: Yes normal visual inspection, Yes full ROM and Yes trachea midline Chest Chest palpation & inspection: normal inspection of the chest Resp Effort & Inspection: normal respiratory effort, able to speak in complete sentences and no respiratory distress GI Inspection: Yes normal to inspection Back/Spine/Pelvis Cervical Spine: normal cervical lordosis Thoracic/Lumbar Spine: thoracic and lumbar spine normal to inspection Skin General skin exam: no rashes or lesions noted Neuro General: patient oriented x3, gait normal, tone normal and moves all extremities Extrem General: Yes normal to inspection and Yes capillary refill normal Office Procedures Post Void Residual Post Residual Void Post Void Residual (PVR): 15 [id number] Void Residual by ultrasound Results AMB Urinalysis, Automated UA Leukoctes 0 Debora/uL Last Edit by JOE Fuentes on 02/03/23 10:00 UA Nitrite Negative Last Edit by JOE Fuentes on 02/03/23 10:00 UA Urobilinogen 1 mg/dL Last Edit by JOE Fuentes on 02/03/23 10:00 UA Protein 15 mg/dL Last Edit by JOE Fuentes on 02/03/23 10:00 UA pH 6.0 Last Edit by JOE Fuentes on 02/03/23 10:00 UA Blood 0 Jose/uL Last Edit by JOE Fuentes on 02/03/23 10:00 UA Specific [place] 1.030 Last Edit by JOE Fuentes on 02/03/23 10: 00 UA Ketone Negative Last Edit by JOE Fuentes on 02/03/23 10:00 UA Bilirubin 1 mg/dL Last Edit by JOE Fuentes on 02/03/23 10:00 1+ Ronna Heck 02/03/23 10:00 UA Glucose 0 mg/dL Last Edit by JOE Fuentes on 02/03/23 10:00 Results Reviewed Results Reviewed: Laboratory Last Values Urine pH (Auto) 6.0 02/03/23 09:48 Specific [place] (Auto) 1.030 02/03/23 09:48 Urine Protein (Auto) 15 mg/dL 02/03/23 09:48 Glucose (UA)(Auto) 0 mg/dL 02/03/23 09:48 Urine Ketones (Auto) Negative 02/03/23 09:48 Urine Blood (Auto) 0 Jose/uL 02/03/23 09:48 Urine Nitrite (Auto) Negative 02/03/23 09:48 Urine Bilirubin (Auto) 1 mg/dL 02/03/23 09:48 Urine Urobilinogen (Auto) 1 mg/dL 02/03/23 09:48 Leukocyte Esterase (Auto) 0 Debora/uL 02/03/23 09:48 Assessment & Plan Assessment & Plan (1) Erectile dysfunction: Code(s): N52.9 - Male erectile dysfunction, unspecified Qualifiers: Erectile dysfunction type: vasculogenic Vasculogenic erectile dysfunction type: due to arterial insufficiency Qualified Code(s): N52.01 - Erectile dysfunction due to arterial insufficiency (2) BPH w urinary obs/LUTS: Code(s): N40.1 - Benign prostatic hyperplasia with lower urinary tract symptoms; N13.8 - Other obstructive and reflux uropathy Plan Six month follow-up PSA Orders: Orders AMB Post Void Residual by ultrasound Today N39.8 - Other specified disorders of urinary system AMB Urinalysis Automated Today Z13.9 - Encounter for screening, unspecified Prostate Specific Antigen 6 Months N13.8 - Other obstructive and reflux uropathy, N40.1 - Benign prostatic hyperplasia with lower urinary tract symptoms Medications: Refilled 2 tadalafil 5 mg PO DAILY 90 days PRN 90 tabs 1RF sexual activity N52.9 - Male erectile dysfunction, unspecified Patient Instructions: Imaging studies, laboratory and physical exam results were discussed and reviewed in detail. No major barriers to patient understanding were identified. An opportunity to ask questions regarding the treatment plan was provided. All questions were answered. The patient expressed understanding and agreement with the above treatment plan. The patient is aware they should contact our office by phone for worsening of their current condition or the appearance of new urologic symptoms. Compliance is encouraged with any medications and followup testing that is ordered. It is a privilege to participate in the urologic care of your patient. If you have any questions or concerns regarding treatment for the above conditions, or other urologic issues, please do not hesitate to contact me. The office telephone contact is [phone]. This note is constructed using voice recognition software. While every effort has been made to ensure accuracy data coder operator errors may have been included. Yours sincerely, Dr Juan Mcclure MD, [facility] Urology Providers of Expert, Compassionate Care for the Genitourinary System Coding Level of Care Code Est Pt Level 3 (97987) Diagnoses Erectile dysfunction due to arterial insufficiency N52.01 Erectile dysfunction type: vasculogenic Vasculogenic erectile dysfunction type: due to arterial insufficiency BPH w urinary obs/LUTS N40.1; N13.8 CPT Codes Post Residual Void - PVR CPT Code: 79605-Aluv Void Residual by ultrasound ([id number])
== END 2023-02-03 10:18 | disposition home or self-care (01) ==
PROVIDERS: PCP Internal Medicine; Visit Provider Urology
DX: N52.01 Erectile dysfunction due to arterial insufficiency (principal); N40.1 Benign prostatic hyperplasia with lower urinary tract symptoms; N13.8 Other obstructive and reflux uropathy; Z13.9 Encounter for screening, unspecified
CPT/HCPCS: 99213

== ENCOUNTER → 2023-02-03 09:44 | Outpatient (BNVA) | payer OTHER, MEDICAID, SELFPAY | PROVIDERS: Visit Provider Urology | DX: N40.1 Benign prostatic hyperplasia with lower urinary tract symptoms (principal); N13.8 Other obstructive and reflux uropathy; N52.01 Erectile dysfunction due to arterial insufficiency | CPT/HCPCS: 51798; 81003; 99212 ==

== ENCOUNTER 2023-04-13 10:28 | Outpatient (REF) | payer OTHER, SELFPAY ==
--- NOTE | ~2023-04-13 | XR_ITS ---
EXAMINATION: XR LUMBOSACRAL SPINE CLINICAL INFORMATION: SI joint issues and anterior rotation right hip COMPARISON: Lumbar spine 04/26/2016 TECHNIQUE: Three views of the lumbosacral spine. FINDINGS: There are 5 nonrib-bearing lumbar-type vertebral bodies. The height of the vertebral bodies is well-maintained. There is no disc space narrowing. No spondylolisthesis. There is degenerative spur at the anterior endplates of the lower thoracic vertebrae in the lumbar spine. There are also marginal osteophytes laterally bilaterally at L4-L5. The cingulate joints are within normal limits. XR/XR lumbar spine 2-3V IMPRESSION: No acute abnormality. Mild degenerative spondylosis of the spine
--- NOTE | ~2023-04-13 | XR_ITS ---
EXAMINATION: XR HIP, LEFT CLINICAL INFORMATION: Left hip pain COMPARISON: CT 02/07/2020 TECHNIQUE: Two views of the left hip. FINDINGS: Mild left hip osteoarthritis with small marginal osteophytes. No fracture. No suspicious bone lesion. XR/XR hip LT min 2V IMPRESSION: Mild left hip osteoarthritis.
== END 2023-04-13 10:29 | disposition home or self-care (01) ==
LOC: HO.XRAY 10:28
PROVIDERS: PCP Family Medicine; Visit Provider Family Medicine
DX: M53.3 Sacrococcygeal disorders, not elsewhere classified (principal); M76.32 Iliotibial band syndrome, left leg
CPT/HCPCS: 72100; 73502

== ENCOUNTER 2023-05-12 11:37 | Emergency (ER) | payer OTHER, SELFPAY ==
--- NOTE | ~2023-05-12 | XR_ITS ---
EXAMINATION: XR CHEST CLINICAL INFORMATION: Evaluate for pneumonia, cough COMPARISON: Chest radiograph from 06/01/2018 TECHNIQUE: 2 views of the chest were obtained. FINDINGS: No focal consolidation. No pneumothorax. Trachea is midline. Sternotomy wires and surgical clips. Cardiac mediastinal silhouette is not enlarged. Aorta demonstrates mild tortuosity. No large pleural effusion. Degenerative changes of the thoracolumbar spine. Soft tissues are unremarkable. XR/XR chest 2V IMPRESSION: No acute cardiopulmonary process.
[2023-05-12 12:36] VITALS: BP 132/74; PULSE 54; RESP 18; TEMP 36.6; O2SAT 98; BMI 24.9
--- NOTE | 2023-05-12 12:38 | ED_ITS ---
HPI - Abdominal Pain General Chief Complaint: General Medical Stated Complaint: headache, R side pain Time Seen by Provider: 05/12/23 13:26 Source: patient Mode of arrival: ambulatory Limitations: no limitations History of Present Illness HPI narrative: 67 year old male with pmhx significant for BPH and ED presents to the emergency department today for evaluation of headache and right-sided rib pain x3 days. Reports rib pain began after flying home from [place] 3 days ago. Pain is exacerbated with turning the torso and movement. No radiation. States he is unsure if this pain is due to him sitting on the plane for so long. Denies chest pain, shortness of breath, dyspnea, dysuria, hematuria, flank pain. Additionally complains of an intermittent headache over the last 3 days. Pain is localized to bilateral forehead, no radiation. Pain is not exacerbated with position changes. No vision changes. Denies scalp tenderness, jaw claudication, cough. No sick contacts. Related Data Home Medications Medication Instructions Recorded Confirmed atorvastatin 80 mg tablet 80 mg PO DAILY 01/31/20 02/03/23 clonazepam 0.5 mg tablet 0.5 mg PO BID PRN 01/31/20 02/03/23 lisinopril 5 mg tablet 5 mg PO DAILY 01/31/20 02/03/23 metoprolol tartrate 25 mg tablet 25 mg PO BID 01/31/20 02/03/23 Previous Rx's Medication Instructions Recorded tadalafil 5 mg tablet 5 mg PO DAILY PRN sexual activity 02/03/23 90 days #90 tabs baclofen 5 mg tablet 5 mg PO BEDTIME PRN muscle spasm 05/12/23 #7 tabs lidocaine 5 % topical patch 1 patch topical DAILY #15 ea 05/12/23 (Lidoderm) Allergies Allergy/AdvReac Type Severity Reaction Status Date / Time No Known Allergies Allergy Verified 10/29/21 11:02 [No Known Allergies*] Review of Systems Review of Systems Constitutional: No fever, chills, fatigue, night sweats, weight changes ENT/Mouth: No ear pain, hearing loss, nasal congestion, sinus pain, rhinorrhea, sore throat Eyes: No eye pain, swelling, redness, vision changes, discharge Cardio: No chest pain, palpitations, BOCANEGRA, orthopnea, peripheral edema Pulm: No SOB, cough, sputum, wheezing, dyspnea, hemoptysis GI: No nausea, vomiting, hematemesis, abdominal pain, diarrhea, constipation, hematochezia, melena : No irregular bleeding, dysuria, frequency, urgency, hesitancy, hematuria, flank pain, urinary flow changes, urinary incontinence or retention MSK: +back pain, No neck pain, joint pain, myalgias Skin: No lesions, rashes Neuro: No weakness, numbness, paresthesias, LOC, dizziness, headache All other systems reviewed and are negative. [facility] Past Medical History Onset Date is defined in the Problem List Problems that require an onset date and time if occurred within 24 hrs of arrival to the ED Aortic Dissection and Rupture; Neurologic impairment; Cardiopulmonary Arrest; Endotracheal Intubation; Insertion or Replacement of Mechanical Circulatory Assist Device Medical History Colitis Coronary artery disease involving coronary bypass graft of [place] heart Decrease in appetite H/O urinary retention HTN (hypertension) Hyperlipidemia Left knee pain Peripheral tear of medial meniscus of left knee Surgical History History of colonoscopy (~2018) S/P CABG x 3 (~2017) History of cardiac catheterization (~2006) Family History Family History (Updated 02/03/23 @ 09:55 by JOE Fuentes) Father No problems noted. Mother No problems noted. Social History Social History (Updated 02/03/23 @ 09:55 by JOE Fuentes) Alcohol intake: current Alcohol intake frequency: does not drink Patient Tobacco Use Status: Never used Tobacco Advance Directives: No Advance Directives Information Provided: Yes Physical Exam ED Vital Signs: Vital Signs - 24 hr 05/12/23 12:36 05/12/23 15:49 Temperature 97.9 F 97.4 F Pulse Rate 54 55 Respiratory Rate 18 16 Blood Pressure 132/74 148/79 H Pulse Oximetry 98 99 Oxygen Delivery Method Room Air Room Air BMI result Body Mass Index 24.9 Vital signs stable. Not tachycardic. Const Other: Nontoxic appearing General: cooperative, healthy appearing, comfortable, no acute distress, alert, awake and Physically active Orientation/consciousness: patient oriented x3 HENMT Head: Yes normal to inspection, Yes normocephalic and Yes atraumatic Eyes General: appearance normal, both eyes and all related structures Pupils: Equal, round and reactive pupils present EOM: EOMs intact bilaterally Neck Neck: Yes normal visual inspection, Yes full ROM and Yes no meningeal signs Chest Other: + reproducible tenderness overlying the right anterior 7th and 8th ribs, no overlying skin changes, no palpable deformity. Resp Effort & Inspection: normal respiratory effort, able to speak in complete sentences, no respiratory distress, no use of accessory muscles and symmetric chest movement Auscultation: clear to auscultation bilaterally Cardio Rate: regular rate Rhythm: regular rhythm Peripheral pulses: Peripheral pulses 2+ throughout GI Inspection: Yes normal to inspection Palpation (GI): Soft to palpation, nontender and no guarding General: Yes no CVA tenderness Back/Spine/Pelvis Back: no CVA tenderness Skin General skin exam: no rashes or lesions noted Neuro Other: Strength 5/5 intact throughout.? Sensation intact to light touch.? Neurovascular intact. General: patient oriented x3, gait normal and no meningeal signs Cranial nerves: Yes Equal, round and reactive pupils present Gait exam (Neuro): Normal gait present Motor exam (neuro): Pronator motor function not present Coordination: [id number] test normal, [id number] test normal and Normal rapid alternating movements of the distal upper extremity present (Neuro) Pupils: Normal pupillary reactivity/response: bilateral Extrem General: Yes no calf tenderness Course Course Course Narrative: Back from [place] 3 days ago. Right flank pain and headache starting yesterday. Right side hurts when he coughs and moves and exacerbated by inspiration. He believes the pain is from the ribs. Denies fever or chills, n/v/d. Using ibuprofen 800 mg, with last dose this morning. Denies SOB or CP. RME: NAD, A&Ox4, [place] x 4 w/good strength, LS CTA, HR nathaly 54 RME completed by Nick Reevaluation(s) Reevaluation #1: [id number]-- on re-evaluation, patient reports resolution of both headache and rib pain with Toradol, lidocaine patch, Reglan and Benadryl. Serology negative for COVID and influenza. Chest x-ray does not demonstrate pneumothorax or rib fracture. Likely muscle strain. Will send patient home with a muscle relaxer and lidocaine patches. Patient has remained stable throughout ED visit today. Discussed strict return precautions. All questions answered at this time. Patient is agreeable with disposition and stable for discharge. Medical Decision Making Medical Decision Making [facility] Narrative: 67 year old male with pmhx significant for BPH and ED presents to the emergency department today for evaluation of headache and right-sided rib pain x3 days. Vital signs stable. Not tachycardic. Not hypoxic. He is nontoxic appearing in no acute distress. Exam nonfocal. Cerebellum intact. Reproducible chest wall tenderness overlying the right anterior 7th and 8th rib, no palpable deformity. No overlying skin changes. Symmetric rise and fall the chest. Lungs CTA bilaterally. RRR. No calf tenderness. No rashes. Concern for headache, migraine. Unlikely temporal arteritis, ICH, CVA/TIA, dissection, cerebellar stroke. Lower suspicion for UTI, nephrolithiasis, hydronephrosis, obstructive uropathy. Unlikely ACS, arrhythmia. Unlikely PE given reproducible chest wall tenderness and improvement with pain medication. Plan for serology, imaging, pain control and re-evaluation. Differential Diagnosis Differential Diagnoses: The differential diagnosis associated with the presentation includes as above Admission/Observation Not indicated. Lab Data [facility] Lab Attestation statement: I reviewed the patient's lab results. As above. Labs: Lab Results 05/12/23 05/12/23 Range/Units 15:52 16:05 Urine Color Yellow Urine Appearance Clear Urine pH 6.0 (5.0-9.0) Ur Specific [place] 1.010 (1.005-1.025) Urine Protein Negative (Neg-Trace) mg/dL Urine Glucose (UA) Negative (Negative) mg/dL Urine Ketones Negative (Negative) mg/dL Urine Blood Negative (Negative) Urine Nitrite Negative (Negative) Ur Leukocyte Esterase Negative (Negative) COVID-19 ([facility]KLEY) Negative (Negative) COVID-19 Clin Com See Note Influenza Type A (MATT) Negative (Negative) Influenza Type B (MATT) Negative (Negative) Influenza A & B Note See Note Independent Interpretation I performed an independent interpretation of an: Plain X-Ray Interpretation: I personally reviewed chest x-ray and agree with radiologist's interpretation. Radiology Impression Discussion of test interpretation with radiology: I have reviewed the radiologist's reading. Radiologist Impression: XR chest 2V IMPRESSION: No acute cardiopulmonary process. External Record Review External record reviewed: Inpatient record Prescription Management I considered prescription management with: Pain Medication and Other (Muscle relaxer) Medications Administered Discontinued Medications Generic Name Dose Route Start Last Admin Trade Name [place] PRN Reason Stop Dose Admin Acetaminophen 975 mg 05/12/23 12:42 05/12/23 12:44 Acetaminophen 325 Mg Tablet PO 05/12/23 12:43 975 mg ONCE ONE Administration Diphenhydramine HCl 50 mg 05/12/23 14:21 05/12/23 15:02 Diphenhydramine Hcl 25 Mg Capsule PO 05/12/23 14:22 50 mg ONCE ONE Administration Ketorolac Tromethamine 30 mg 05/12/23 14:21 05/12/23 15:02 Ketorolac Tromethamine 30 Mg/Ml Vial IM 05/12/23 14:22 30 mg ONCE ONE Administration Lidocaine 1 patch 05/12/23 14:21 05/12/23 15:02 Lidocaine 4 % Patch Adh..Patch TRANSDERMA 05/12/23 14:22 1 patch ONCE ONE Administration Protocol Metoclopramide HCl 10 mg 05/12/23 14:21 05/12/23 15:02 Metoclopramide Hcl 10 Mg Tablet PO 05/12/23 14:22 10 mg ONCE ONE Administration Discharge Plan Discharge Clinical Impression: Muscle strain, Headache Patient Disposition: Home, Self-Care Instructions: Ice Pack Application (ED), General Headache (ED) Additional Instructions: Your imaging studies today did not show acute fracture. Your pain is likely musculoskeletal. Avoid bending, lifting, or twisting. Use ice several times per day for 20 minutes at a time for the next 48 hours and then change to heat. Baclofen is a muscle relaxer. Take this at night as it makes you drowsy. Do not drive, drink alcohol, or operate machinery while taking it. Lidoderm patches are numbing patches. Apply to painful areas. In addition you may take Tylenol and ibuprofen at home. Follow up with your primary care provider as needed If your pain worsens, if you develop new numbness, tingling, weakness, loss of bowel or bladder function call 911 or return to the ER immediately for evaluation. Prescriptions: New lidocaine [Lidoderm] 5 % adhesive patch,medicated 1 patch topical DAILY Qty: 15 0RF Rx Instructions: leave on most painful area for up to 12 hrs baclofen 5 mg tablet 5 mg PO BEDTIME PRN (Reason: muscle spasm) Qty: 7 0RF No Action clonazepam 0.5 mg tablet 0.5 mg PO BID PRN lisinopril 5 mg tablet 5 mg PO DAILY atorvastatin 80 mg tablet 80 mg PO DAILY metoprolol tartrate 25 mg tablet 25 mg PO BID tadalafil 5 mg tablet 5 mg PO DAILY PRN (Reason: sexual activity) 90 Days Qty: 90 1RF Interventions: ED Discharge Assessment Last Done: 05/12/23 17:09 Discharge Date/Time: 05/12/23 17:09
[2023-05-12] MEDS: Acetaminophen 325 MG TABLET 975 MG PO (12:44)
[2023-05-12] MEDS: diphenhydrAMINE HCL 25 MG CAPSULE 50 MG PO (15:02)
[2023-05-12] MEDS: Ketorolac Tromethamine 30 MG/ML VIAL IM (15:02)
[2023-05-12] MEDS: Metoclopramide HCl 10 MG TABLET PO (15:02)
[2023-05-12] MEDS: Lidocaine 4 % Patch ADH..PATCH 1 PATCH TRANSDERMA (15:02)
[2023-05-12 15:49] VITALS: BP 148/79; PULSE 55; RESP 16; TEMP 36.3; O2SAT 99
[2023-05-12 16:15] LABS: COVID-19 Test Negative (Negative); IDNOW Serial# 08D9AD1C
[2023-05-12 16:21] LABS: IDNOW Serial# 152EDE1D; Influenza A Negative (Negative); Influenza B2 Negative (Negative)
[2023-05-12 16:21] LABS: Appearance Urine Clear; Color Urine Yellow; Glucose Urine UA Negative (Negative); Leukocyte Esterase Urine Negative (Negative); Nitrite Urine Negative (Negative); Urine Blood Negative (Negative); Urine Ketones Negative (Negative); Urine Protein Negative (Neg-Trace)
== END 2023-05-12 17:09 | disposition home or self-care (01) ==
PROVIDERS: Nurse Practitioner Family; Physician Assistant Medical; Emergency Provider Emergency Medicine; PCP Family Medicine
DX: S29.011A Strain of muscle and tendon of front wall of thorax, initial encounter (principal); X50.9XXA Other and unspecified overexertion or strenuous movements or postures, initial encounter; R51.9 Headache, unspecified; Z11.52 Encounter for screening for COVID-19; Y93.89 Activity, other specified; Y92.9 Unspecified place or not applicable; Y99.9 Unspecified external cause status
CPT/HCPCS: 71046; 81003; 87502; 87635; 96372; 99283; 99284; J1885

== ENCOUNTER 2023-05-24 15:17 | Outpatient (REF) | payer OTHER, SELFPAY ==
[2023-05-25 00:50] LABS: Influenza A PCR NEGATIVE (Negative); Influenza B PCR NEGATIVE (Negative); Resp Syncy Virus RNA Qual PCR NEGATIVE (Negative); SARS COV2 PCR INHOUSE POSITIVE (Negative)
== END 2023-05-24 15:18 | disposition home or self-care (01) ==
LOC: HO.CHCLNP 15:17
PROVIDERS: Visit Provider Family Medicine
DX: Z11.52 Encounter for screening for COVID-19 (principal); Z20.822 Contact with and (suspected) exposure to COVID-19; R52 Pain, unspecified
CPT/HCPCS: 0241U

== ENCOUNTER 2023-06-13 10:53 | Outpatient (REF) | payer OTHER, SELFPAY ==
[2023-06-13 14:24] LABS: Appearance Urine Clear; Color Urine Dark Yellow; Glucose Urine UA Negative (Negative); Leukocyte Esterase Urine Negative (Negative); Nitrite Urine Negative (Negative); PH 6.5 (5.0-9.0); Specific Gravity - Urine 1.025 (1.005-1.025); Urine Blood Negative (Negative); Urine Ketones Negative (Negative); Urine Protein Negative (Neg-Trace)
[2023-06-13 14:30] LABS: MANUAL DIFF FLAG NO
[2023-06-13 14:35] LABS: Basophils Percent Auto 0.5 % (0-2); Eosinophils Absolute Auto 0.2 X10*3/uL (0.0-0.4); Eosinophils Percent Auto 2.7 % (0-4); Hematocrit 43.8 % (42.0-52.0); Imm Gran Abs Auto 0.02 X10*3/uL (0.00-0.03); Imm Gran Pct Auto 0.4 % (0.0-0.4); Lymphocytes Absolute Auto 2.5 X10*3/uL (1.2-4.9); Lymphocytes Percent Auto 44.8 % (20-40); Mean Corpuscular HGB Conc 34.2 g/dl (31.0-36.0); Mean Corpuscular Hemoglobin 31.6 pg (27.0-33.0); Mean Corpuscular Volume 92.2 fL (80.0-98.0); Mean Platelet Volume 10.6 fL (9.4-12.4); Monocytes Absolute Auto 0.8 X10*3/uL (0.1-1.2); Monocytes Percent Auto 13.5 % (2-11); Neutrophils Absolute Auto 2.1 x10*3/uL (2.0-8.3); Neutrophils Percent Auto 38.1 % (45-73); Platelet Count 200 X10*3/uL (160-400); Red Blood Count 4.75 X10*6/uL (4.60-5.80); Red Cell Distribution Width 13.6 % (11.0-16.0); White Blood Count 5.6 X10*3/uL (4.8-10.8)
[2023-06-13 14:55] LABS: Anion Gap 13 (12-20); Blood Urea Nitrogen 15 mg/dL (9-16); Calcium 9.1 mg/dL (8.4-10.2); Carbon Dioxide 26 mmol/L (22-29); Chloride 105 mmol/L (96-108); Estimated Glomerular Filt Rate > 60; Glucose Random 76 mg/dL (60-115); Potassium 3.9 mmol/L (3.3-5.1); Sodium 140 mmol/L (135-145)
== END 2023-06-13 10:54 | disposition home or self-care (01) ==
LOC: HO.CHCLDS 10:53
PROVIDERS: Visit Provider Internal Medicine
DX: R42 Dizziness and giddiness (principal)
CPT/HCPCS: 36415; 80048; 81003; 85025

== ENCOUNTER 2023-08-03 15:12 | Outpatient (REF) | payer OTHER, SELFPAY ==
[2023-08-03 18:06] LABS: Influenza A PCR NEGATIVE (Negative); Influenza B PCR NEGATIVE (Negative); Resp Syncy Virus RNA Qual PCR NEGATIVE (Negative); SARS COV2 PCR INHOUSE NEGATIVE (Negative)
== END 2023-08-03 15:13 | disposition home or self-care (01) ==
LOC: HO.CHCLNP 15:12
PROVIDERS: Visit Provider Family Medicine
DX: J06.9 Acute upper respiratory infection, unspecified (principal)
CPT/HCPCS: 0241U

== ENCOUNTER 2023-08-15 08:44 | Outpatient (REF) | payer OTHER, SELFPAY ==
[2023-08-15 10:13] LABS: Prostate Specific Antigen 3.36 ng/mL (<0.05-4.0)
== END 2023-08-15 08:45 | disposition home or self-care (01) ==
LOC: HO.LAB 08:44
PROVIDERS: PCP Family Medicine; Visit Provider Urology
DX: N40.1 Benign prostatic hyperplasia with lower urinary tract symptoms (principal); N13.8 Other obstructive and reflux uropathy; Z12.5 Encounter for screening for malignant neoplasm of prostate
CPT/HCPCS: 36415; 84153

== ENCOUNTER 2023-10-11 13:05 | Outpatient (AMB) | payer OTHER, SELFPAY ==
--- NOTE | 2023-10-11 13:35 | MHC.OFFVIS ---
Intake Visit Reasons: PSA Follow Up(set) Intake Note: Patient is Present for Follow Up PSA Urology Medication: Tadalafil Antibiotic Allergies: None Blood Thinners: None Allergies No Known Allergies [No Known Allergies*] Allergy (Verified 10/11/23 13:35) Medication List - Last Reconciled 10/11/23 by Juan Mcclure MD atorvastatin 80 mg PO DAILY baclofen 5 mg PO BEDTIME PRN clonazepam 0.5 mg PO BID PRN lidocaine 5% (Lidoderm) 1 patch topical DAILY lisinopril 5 mg PO DAILY metoprolol tartrate 25 mg PO BID tadalafil 5 mg PO DAILY PRN 90 days HPI Comments Details: David is a pleasant male. He is a patient of . He is seen for the following urologic conditions - erectile dysfunction - lower urinary tract symptoms Frisian translation provided in office by qualified medical laboratory technologist Continue effective voiding Continue effective erections - represcribed tadalafil PSA remains slight increase Six-month follow-up repeat Erectile dysfunction Reports gradually failing erections Able to obtain but cannot maintain erection Success with daily tadalafil 5 mg Lower urinary tract symptoms Mild hesitancy Minimal nocturia Adequate stream incomplete emptying PSA 08/21 2.4, 08/22 3.0, 08/23 3.4 PFSH Medical History Hyperlipidemia H/O urinary retention HTN (hypertension) Colitis Decrease in appetite Coronary artery disease involving coronary bypass graft of [place] heart Peripheral tear of medial meniscus of left knee Left knee pain Surgical History History of colonoscopy (~2018) S/P CABG x 3 (~2017) History of cardiac catheterization (~2006) Family History Father No problems noted. Mother No problems noted. Social History Alcohol intake: current Alcohol intake frequency: does not drink Patient Tobacco Use Status: Never used Tobacco Review of Systems Const Denies chills and Denies fever(s) Card Reports no additional complaints and Denies syncope Resp Denies cough GI Denies abdominal pain and Denies heartburn Reports as per HPI and Denies change in libido Neuro Denies syncope Psych Denies change in libido Endo Denies change in libido Physical Exam Const General: cooperative, healthy appearing, comfortable and no acute distress Orientation/consciousness: patient oriented x3 HEENT Face and sinus: Yes normal facial exam Mouth: moist mucous membranes Neck Neck: Yes normal visual inspection, Yes full ROM and Yes trachea midline Chest Chest palpation & inspection: normal inspection of the chest Resp Effort & Inspection: normal respiratory effort, able to speak in complete sentences and no respiratory distress GI Inspection: Yes normal to inspection Back/Spine/Pelvis Cervical Spine: normal cervical lordosis Thoracic/Lumbar Spine: thoracic and lumbar spine normal to inspection Skin General skin exam: no rashes or lesions noted Neuro General: patient oriented x3, gait normal, tone normal and moves all extremities Extrem General: Yes normal to inspection and Yes capillary refill normal Assessment & Plan Assessment & Plan (1) Rising PSA level: Code(s): R97.20 - Elevated prostate specific antigen [PSA] Category: Medical (2) Erectile dysfunction: Code(s): N52.9 - Male erectile dysfunction, unspecified Category: Medical Qualifiers: Erectile dysfunction type: vasculogenic Vasculogenic erectile dysfunction type: due to arterial insufficiency Qualified Code(s): N52.01 - Erectile dysfunction due to arterial insufficiency (3) BPH w urinary obs/LUTS: Code(s): N40.1 - Benign prostatic hyperplasia with lower urinary tract symptoms; N13.8 - Other obstructive and reflux uropathy Category: Medical Plan Six-month follow-up PSA office Refill tadalafil Orders: Orders Prostate Specific Antigen 6 Months R97.20 - Elevated prostate specific antigen [PSA] Patient Instructions: Imaging studies, laboratory and physical exam results were discussed and reviewed in detail. No major barriers to patient understanding were identified. An opportunity to ask questions regarding the treatment plan was provided. All questions were answered. The patient expressed understanding and agreement with the above treatment plan. The patient is aware they should contact our office by phone for worsening of their current condition or the appearance of new urologic symptoms. Compliance is encouraged with any medications and followup testing that is ordered. It is a privilege to participate in the urologic care of your patient. If you have any questions or concerns regarding treatment for the above conditions, or other urologic issues, please do not hesitate to contact me. The office telephone contact is [phone]. This note is constructed using voice recognition software. While every effort has been made to ensure accuracy leveler helper errors may have been included. Yours sincerely, Dr Juan Mcclure MD, [facility] - Urology Providers of Expert, Compassionate Care for the Genitourinary System Coding Level of Care Code Est Pt Level 3 (12530) Diagnoses Rising PSA level R97.20 Erectile dysfunction due to arterial insufficiency N52.01 Erectile dysfunction type: vasculogenic Vasculogenic erectile dysfunction type: due to arterial insufficiency BPH w urinary obs/LUTS N40.1; N13.8
== END 2023-10-11 14:42 | disposition home or self-care (01) ==
PROVIDERS: PCP Family Medicine; Visit Provider Urology
DX: R97.20 Elevated prostate specific antigen [PSA] (principal); N52.01 Erectile dysfunction due to arterial insufficiency; N40.1 Benign prostatic hyperplasia with lower urinary tract symptoms; N13.8 Other obstructive and reflux uropathy
CPT/HCPCS: 99213

== ENCOUNTER → 2023-10-11 13:05 | Outpatient (BNVA) | payer OTHER, SELFPAY | PROVIDERS: PCP Family Medicine; Visit Provider Urology | DX: N40.1 Benign prostatic hyperplasia with lower urinary tract symptoms (principal); N13.8 Other obstructive and reflux uropathy; R97.20 Elevated prostate specific antigen [PSA]; N52.01 Erectile dysfunction due to arterial insufficiency | CPT/HCPCS: 99212 ==

== ENCOUNTER 2023-10-18 08:14 | Outpatient (REF) | payer OTHER, SELFPAY ==
[2023-10-18 08:31] LABS: MANUAL DIFF FLAG NO
[2023-10-18 09:11] LABS: Basophils Percent Auto 0.7 % (0-2); Eosinophils Absolute Auto 0.1 X10*3/uL (0.0-0.4); Eosinophils Percent Auto 2.4 % (0-4); Hematocrit 43.8 % (42.0-52.0); Hemoglobin 15.6 g/dl (14.0-18.0); Imm Gran Abs Auto 0.02 X10*3/uL (0.00-0.03); Imm Gran Pct Auto 0.4 % (0.0-0.4); Lymphocytes Absolute Auto 2.9 X10*3/uL (1.2-4.9); Lymphocytes Percent Auto 52.9 % (20-40); Mean Corpuscular HGB Conc 35.6 g/dl (31.0-36.0); Mean Corpuscular Hemoglobin 32.5 pg (27.0-33.0); Mean Corpuscular Volume 91.3 fL (80.0-98.0); Monocytes Absolute Auto 0.6 X10*3/uL (0.1-1.2); Monocytes Percent Auto 10.4 % (2-11); Neutrophils Absolute Auto 1.8 x10*3/uL (2.0-8.3); Neutrophils Percent Auto 33.2 % (45-73); Platelet Count 179 X10*3/uL (160-400); Red Cell Distribution Width 13.5 % (11.0-16.0); White Blood Count 5.5 X10*3/uL (4.8-10.8)
[2023-10-18 09:50] LABS: Alanine Aminotransferase 8 U/L (0-40); Albumin Level 3.9 g/dL (3.5-5.0); Alkaline Phosphatase 78 U/L (39-117); Anion Gap 9 (12-20); Aspartate Amino Transferase 15 U/L (5-37); Bilirubin Total 0.5 mg/dL (0.0-1.0); Blood Urea Nitrogen 16 mg/dL (9-16); Calcium 8.6 mg/dL (8.4-10.2); Carbon Dioxide 27 mmol/L (22-29); Chloride 109 mmol/L (96-108); Estimated Glomerular Filt Rate > 60; Glucose Random 106 mg/dL (60-115); Sodium 141 mmol/L (135-145); Total Protein 7.3 g/dL (6.5-8.0)
[2023-10-18 09:57] LABS: TSH reflex Free T4 1.64 uIU/mL (0.32-4.0)
[2023-10-18 12:25] LABS: Folate 11.7 ng/mL (> or = 4.0); Vitamin B12 305 pg/mL (200-900)
--- NOTE | 2023-10-18 15:19 | ECG_ITS ---
Test Reason : DIZZINESS Blood Pressure : / mmHG Vent. Rate : 056 BPM Atrial Rate : 056 BPM P-R Int : 180 ms QRS Dur : 086 ms QT Int : 426 ms P-R-T Axes : 062 -11 030 degrees QTc Int : 411 ms Sinus bradycardia Low voltage QRS Cannot rule out Inferior infarct , age undetermined Abnormal ECG When compared to the previous EKG of No significant changes seen Referred By: Albina Moran Electronically Signed By:Yoni Garcia
== END 2023-10-18 08:15 | disposition home or self-care (01) ==
LOC: HO.LAB 08:14
PROVIDERS: PCP Family Medicine; Visit Provider Family Medicine
DX: R42 Dizziness and giddiness (principal)
CPT/HCPCS: 36415; 80053; 82607; 82746; 84443; 85025; 93005

== ENCOUNTER → 2023-10-18 15:19 | Outpatient (BNV) | payer OTHER, SELFPAY | PROVIDERS: PCP Family Medicine; Visit Provider Internal Medicine Cardiovascular Disease | DX: R00.1 Bradycardia, unspecified (principal) | CPT/HCPCS: 93010 ==

== ENCOUNTER 2023-11-10 13:15 | Emergency (ER) | payer OTHER, SELFPAY ==
--- NOTE | ~2023-11-10 | XR_ITS ---
EXAMINATION: XR CHEST CLINICAL INFORMATION: Cough. COMPARISON: Chest radiographs dated 05/12/2023. TECHNIQUE: 2 views of the chest were obtained. FINDINGS: There are sternotomy sutures. Heart size is normal. The lungs are clear. The pleural spaces are clear. No pneumothorax. No acute osseous abnormality. XR/XR chest 2V IMPRESSION: No acute cardiopulmonary disease. Stable appearance of the heart and lungs.
--- NOTE | 2023-11-10 13:42 | ECG_ITS ---
Test Reason : CHEST PAIN Blood Pressure : / mmHG Vent. Rate : 053 BPM Atrial Rate : 053 BPM P-R Int : 180 ms QRS Dur : 088 ms QT Int : 446 ms P-R-T Axes : 053 -15 016 degrees QTc Int : 418 ms Sinus bradycardia Inferior infarct (cited on or before 01-JUN-2018) Abnormal ECG When compared with ECG of 18-OCT-2023 08:49, No significant change was found Referred By: Jessenia Amador Electronically Signed By:Yoni Garcia
[2023-11-10 14:04] VITALS: BP 133/69; PULSE 58; RESP 18; TEMP 36.4; O2SAT 99; BMI 25.5
--- NOTE | 2023-11-10 14:04 | ED.URI ---
HPI - URI/Sore Throat General Chief Complaint: Upper Respiratory Symptoms Stated Complaint: chest pain running nose Time Seen by Provider: 11/10/23 15:25 Source: patient Mode of arrival: ambulatory Limitations: no limitations History of Present Illness ED Provider: Jennyfer MACHADO HPI Narrative: 67-year-old male with history of CAD status post CABG x3, BPH, hyperlipidemia, erectile dysfunction presents with fatigue, malaise, myalgias, runny nose, headache, chest congestion, dry cough ongoing for the past 3 days. Patient reports his chest hurts only when he coughs . He reports shortness of breath only with coughing. No shortness a breath at rest or with exertion. No chest pain with exertion. Patient denies fevers, chills, vision changes, dizziness, weakness, nausea, vomiting, constipation, abdominal pain, changes in bowel habits or urinary habits. No sick contacts Related Data Home Medications ?Medication ?Instructions ?Recorded ?Confirmed atorvastatin 80 mg tablet 80 mg PO DAILY 01/31/20 10/11/23 clonazepam 0.5 mg tablet 0.5 mg PO BID PRN 01/31/20 10/11/23 lisinopril 5 mg tablet 5 mg PO DAILY 01/31/20 10/11/23 metoprolol tartrate 25 mg tablet 25 mg PO BID 01/31/20 10/11/23 Previous Rx's ?Medication ?Instructions ?Recorded baclofen 5 mg tablet 5 mg PO BEDTIME PRN muscle spasm 05/12/23 #7 tabs lidocaine 5 % topical patch 1 patch topical DAILY #15 ea 05/12/23 (Lidoderm) tadalafil 5 mg tablet 5 mg PO DAILY PRN sexual activity 10/11/23 90 days #90 tabs albuterol sulfate 90 mcg/actuation 2 inh inhalation Q4-6H PRN 11/10/23 breath activated powder inhaler shortness of breath or wheezing #1 ea azithromycin 250 mg tablet See Rx Instructions PO .COMPLEX #6 11/10/23 tabs benzonatate 100 mg capsule 100 mg PO BID PRN cough #20 caps 11/10/23 prednisone 20 mg tablet 20 mg PO DAILY 5 days #5 tabs 11/10/23 Allergies Allergy/AdvReac Type Severity Reaction Status Date / Time No Known Allergies Allergy Verified 11/10/23 14:06 [No Known Allergies*] [facility] Past Medical History Attestation statement: The following information was validated with the patient. Source: old records reviewed and nursing notes reviewed Medical History Hyperlipidemia H/O urinary retention HTN (hypertension) Colitis Decrease in appetite Coronary artery disease involving coronary bypass graft of [place] heart Peripheral tear of medial meniscus of left knee Left knee pain Surgical History History of colonoscopy (~2018) S/P CABG x 3 (~2017) History of cardiac catheterization (~2006) Family History Family History Father No problems noted. Mother No problems noted. Social History Social History Alcohol intake: current Alcohol intake frequency: does not drink Patient Tobacco Use Status: Never used Tobacco Advance Directives: No Do you have a plan to hurt others: No Plan Physical Exam Vital Signs: Vital Signs: Last Vital Signs Temp 97.6 F 11/10/23 14:04 Pulse 58 11/10/23 14:04 Resp 18 11/10/23 14:04 BP 133/69 11/10/23 14:04 Pulse Ox 99 11/10/23 14:04 O2 Del Method Room Air 11/10/23 14:04 BMI result Body Mass Index 25.5 vss Appearance: Alert.? Oriented X3.? No acute distress.? Head: Normocephalic, atraumatic, no step-offs or deformities Eyes: Pupils equal, round and reactive to light.? ENT: Pharynx normal.? Neck: Normal inspection.? Neck supple.? CVS: Normal heart rate and rhythm.? Pulses normal.? Respiratory: No respiratory distress.? Breath sounds normal.? Skin: Skin warm and dry.? Normal skin color.? Normal skin turgor.? Extremities: No lower extremity edema.? No calf ttp. 5/5 strength to bilateral upper and lower extremities Neuro: Oriented X 3.? No motor deficit.? No sensory deficit. CN 2-12 intact . Normal umtsuh-ca-whbp, jgbs-tu-hawu steady tandem gait normal coordination NIH stroke scale 0 Course Course Course Narrative: This is a Rapid Medical Examination (RME) performed by Marisol Amador PA-C in triage. Full HPI, ROS, assessment and treatment plan per primary provider in the Main ED. 67 yo male with history of heart attack in the past who presents to the ER for evaluation of headache, runny nose, cough associated with chest discomfort that started yesterday. no known sick contacts at home. no fevers but he feels run down and sick. awake and alert in triage, nontoxic appearing. lungs CTAB and CV w/ RRR. chest pain is only with coughing. Plan: EKG, labs, covid swab, cxr Reevaluation(s) Reevaluation #1: Chest x-ray no acute cardiopulmonary disease. Stable appearing heart and lungs. CBC no acute findings requiring intervention. Chemistry with no acute findings requiring intervention. Troponin negative EKG nonischemic. COVID negative. Patient well-appearing. Will discharge him on prednisone, benzonatate, albuterol. Educated patient on diagnosis and treatment plan, answered all question, patient verbalizes understanding. At this time patient will be discharged home, advised to return with new or worsening symptoms. Educated on worrisome signs and symptoms and when to return. At this time I feel comfortable discharge home. Time: 15:30 Medical Decision Making Medical Decision Making [facility] Narrative: 1528 67-year-old male presents with upper respiratory infection x3 day. Physical exam benign. History and physical exam concerning for viral illness flu versus COVID versus RSV versus bronchitis. Unlikely ACS, PE, dissection, acute respiratory distress, pneumonia. Plan labs, COVID swab, chest x-ray Differential Diagnosis Differential Diagnoses: The differential diagnosis associated with the presentation includes History and physical exam concerning for viral illness flu versus COVID versus RSV versus bronchitis. Unlikely ACS, PE, dissection, acute respiratory distress, pneumonia. Admission/Observation Consideration of admission/observation: Escalation of care including admission/observation considered no indicaiton Lab Data [facility] Lab Attestation statement: I reviewed the patient's lab results. 11/10/23 14:30 11/10/23 14:30 Labs: Lab Results 11/10/23 Range/Units 14:30 WBC 5.0 (4.8-10.8) X10*3/uL RBC 4.57 L (4.60-5.80) X10*6/uL Hgb 14.8 (14.0-18.0) g/dl Hct 41.7 L (42.0-52.0) % MCV 91.2 (80.0-98.0) fL MCH 32.4 (27.0-33.0) pg MCHC 35.5 (31.0-36.0) g/dl RDW 13.4 (11.0-16.0) % Plt Count 142 L (160-400) X10*3/uL MPV 10.0 (9.4-12.4) fL Immature Gran % (Auto) 0.4 (0.0-0.4) % Neut % (Auto) 44.7 L (45-73) % Lymph % (Auto) 37.8 (20-40) % Stearns % (Auto) 12.7 H (2-11) % Eos % (Auto) 3.6 (0-4) % Baso % (Auto) 0.8 (0-2) % Lymph # (Auto) 1.9 (1.2-4.9) X10*3/uL Stearns # (Auto) 0.6 (0.1-1.2) X10*3/uL Eos # (Auto) 0.2 (0.0-0.4) X10*3/uL Baso # (Auto) 0.0 (0.0-0.2) X10*3/uL Abs Immat Gran (auto) 0.02 (0.00-0.03) X10*3/uL Absolute Neuts (auto) 2.3 (2.0-8.3) x10*3/uL Absolute Nucleated RBC 0.000 (0.0-0.012) X10*3/uL Nucleated RBC % (auto) 0.0 (0.0-0.2) /100WBC Sodium 140 (135-145) mmol/L Potassium 4.2 (3.3-5.1) mmol/L Chloride 107 (96-108) mmol/L Carbon Dioxide 28 (22-29) mmol/L Anion Gap 9 L (12-20) BUN 13 (9-16) mg/dL Creatinine 0.84 (0.5-1.4) mg/dL Estim Creat Clear Calc 72.1 Estimated GFR > 60 Random Glucose 116 H (60-115) mg/dL Calcium 9.1 (8.4-10.2) mg/dL Troponin I High Sens 3.0 (<3.5-35.0) ng/L COVID-19 ([facility]) Negative (Negative) COVID-19 Clin Com See Note Independent Interpretation I performed an independent interpretation of an: EKG (Vent. 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 Stable appearance of the heart and lungs.) Radiology Impression Discussion of test interpretation with radiology: I have reviewed the radiologist's reading. Prescription Management I considered prescription management with: Other (prednisione, albuterol, benzonate) Chronic Conditions Patient?s care impacted by: Other (BPH) Critical Care Time Critical Care Time Critical Care Time: No Discharge Plan Discharge Clinical Impression: Upper respiratory infection Patient Disposition: Home, Self-Care Instructions: Upper Respiratory Infection (ED), Viral Syndrome (ED) Additional Instructions: Take your medications as prescribed. If you were prescribed antibiotics today, it is important that you take your medication to their entirety, do not skip any doses, do not finish them early. Follow-up with your primary care provider this week. Return to the emergency department with new or worsening symptoms. Such as fevers, chills, chest pain, shortness of breath, nausea, vomiting, dizziness, headache, vision changes, lethargy In case of emergency call 911 Prescriptions: New albuterol sulfate 90 mcg/actuation aerosol powdr breath activated 2 inh inhalation Q4-6H PRN (Reason: shortness of breath or wheezing) Qty: 1 0RF benzonatate 100 mg capsule 100 mg PO BID PRN (Reason: cough) Qty: 20 0RF prednisone 20 mg tablet 20 mg PO DAILY 5 Days Qty: 5 0RF azithromycin 250 mg tablet See Rx Instructions .ROUTE .COMPLEX Qty: 6 0RF Rx Instructions: For 250 mg dose pack: take 500 mg today (day 1), then 250 mg for 4 days (days 2-5) No Action lidocaine [Lidoderm] 5 % adhesive patch,medicated 1 patch topical DAILY Qty: 15 0RF Rx Instructions: leave on most painful area for up to 12 hrs baclofen 5 mg tablet 5 mg PO BEDTIME PRN (Reason: muscle spasm) Qty: 7 0RF clonazepam 0.5 mg tablet 0.5 mg PO BID PRN lisinopril 5 mg tablet 5 mg PO DAILY atorvastatin 80 mg tablet 80 mg PO DAILY metoprolol tartrate 25 mg tablet 25 mg PO BID tadalafil 5 mg tablet 5 mg PO DAILY PRN (Reason: sexual activity) 90 Days Qty: 90 1RF Referrals: Alyse Parker MD [Primary Care Provider] - 2 days Print Language: Khmer
[2023-11-10 14:38] LABS: MANUAL DIFF FLAG NO
[2023-11-10 14:40] LABS: Basophils Percent Auto 0.8 % (0-2); Eosinophils Absolute Auto 0.2 X10*3/uL (0.0-0.4); Eosinophils Percent Auto 3.6 % (0-4); Hematocrit 41.7 % (42.0-52.0); Hemoglobin 14.8 g/dl (14.0-18.0); Imm Gran Abs Auto 0.02 X10*3/uL (0.00-0.03); Imm Gran Pct Auto 0.4 % (0.0-0.4); Lymphocytes Absolute Auto 1.9 X10*3/uL (1.2-4.9); Lymphocytes Percent Auto 37.8 % (20-40); Mean Corpuscular HGB Conc 35.5 g/dl (31.0-36.0); Mean Corpuscular Hemoglobin 32.4 pg (27.0-33.0); Mean Corpuscular Volume 91.2 fL (80.0-98.0); Monocytes Absolute Auto 0.6 X10*3/uL (0.1-1.2); Monocytes Percent Auto 12.7 % (2-11); Neutrophils Absolute Auto 2.3 x10*3/uL (2.0-8.3); Neutrophils Percent Auto 44.7 % (45-73); Platelet Count 142 X10*3/uL (160-400); Red Blood Count 4.57 X10*6/uL (4.60-5.80); Red Cell Distribution Width 13.4 % (11.0-16.0)
[2023-11-10 14:51] LABS: Anion Gap 9 (12-20); Blood Urea Nitrogen 13 mg/dL (9-16); Calcium 9.1 mg/dL (8.4-10.2); Carbon Dioxide 28 mmol/L (22-29); Chloride 107 mmol/L (96-108); Creatinine Clr Calc Pharmacy 72.1; Estimated Glomerular Filt Rate > 60; Glucose Random 116 mg/dL (60-115); Potassium 4.2 mmol/L (3.3-5.1); Sodium 140 mmol/L (135-145)
[2023-11-10 14:58] LABS: COVID-19 Test Negative (Negative); IDNOW Serial# 08D9AD1C
[2023-11-10 15:50] VITALS: BP 128/71; PULSE 62; RESP 18; TEMP 36.8; O2SAT 99
--- NOTE | 2023-11-10 15:50 | PC.NURSE ---
patient a&ox3, lab work completed, swab obtained, pt will discharge to home
== END 2023-11-10 15:51 | disposition home or self-care (01) ==
PROVIDERS: Physician Assistant; Emergency Provider Emergency Medicine; PCP Family Medicine
DX: J06.9 Acute upper respiratory infection, unspecified (principal); R05.9 Cough, unspecified; R07.9 Chest pain, unspecified; Z11.52 Encounter for screening for COVID-19; I10 Essential (primary) hypertension; E78.5 Hyperlipidemia, unspecified; Z79.02 Long term (current) use of antithrombotics/antiplatelets; Z79.899 Other long term (current) drug therapy
CPT/HCPCS: 36415; 71046; 80048; 84484; 85025; 87635; 93005; 99283

== ENCOUNTER → 2023-11-10 13:42 | Outpatient (BNV) | payer OTHER, SELFPAY | PROVIDERS: Emergency Provider Emergency Medicine; PCP Family Medicine; Visit Provider Internal Medicine Cardiovascular Disease | DX: R00.1 Bradycardia, unspecified (principal) | CPT/HCPCS: 93010 ==

== ENCOUNTER 2023-12-23 07:37 | Outpatient (REF) | payer OTHER, SELFPAY ==
--- NOTE | ~2023-12-23 | CT_ITS ---
EXAMINATION CT HEAD WITHOUT CONTRAST CLINICAL INFORMATION: Dizziness COMPARISON: None TECHNIQUE: CT of the head was performed without intravenous contrast. Reformatted axial, coronal, and sagittal images were reviewed. This CT examination was performed using dose optimization techniques as appropriate, variously including the following: *Automated exposure control *Adjustment of mA and/or kV according to patient size (this includes techniques or standardized protocols for targeted exams where dose is matched to indication/reason for exam; i.e. extremities or head) *Use of iterative reconstruction technique DLP: 825 mGy-cm FINDINGS: No intracranial hemorrhage, extra-axial fluid collection, or midline shift is identified. Quezada-white matter differentiation is preserved. The ventricles are within normal limits. Basal cisterns are within normal limits. Paranasal sinuses are clear. Mastoid air cells and middle ear cavities are clear. No acute calvarial fractures. CT/CT head/brain wo IV con IMPRESSION: No acute intracranial abnormality. Electronically signed by: Rigoberto Payne DO 01/03/2024 12:03 AM EDT
== END 2023-12-23 07:38 | disposition home or self-care (01) ==
LOC: HO.CT 07:37
PROVIDERS: PCP Family Medicine; Visit Provider Family Medicine
DX: R42 Dizziness and giddiness (principal)
CPT/HCPCS: 70450

== ENCOUNTER 2024-11-23 08:15 | Outpatient (REF) | payer OTHER, SELFPAY ==
--- OUTSIDE RECORDS SUMMARY | 2024-11-23 08:21 | XMS_ITS | Encounter Summary ---
Author Organization [employer] Address [address] [place] [address] Care Team Providers Care Escrow Manager Name Role Phone Alyse Parker MD Primary Care Provider [phone] Encounter Details Date Type Department Care Team (Late st Contact Info) Description 04/24/2024 Telephone [facility] [address] [place] [address] Alyse Parker MD [address] [place], [place] [id number] Social History Tobacco Use Types Packs/Day Years Used Date Smoking Tobacco: Never Passive Smoke Exposure: Never Smokeless Tobacco: Never Alcohol Use Standard Drinks/Week Comments Never 0 (1 standard drink = 0.6 oz pur e alcohol) Depression Answer Date Recorded Patient Health Questionnaire-9 Score 3 02/02/2024 Patient Health Questionnaire-9 Score 3 02/02/2024 Last PHQ-9: Questionnaire Data Not on file 1 Housing Stability Answer Date Recorded What is your housing situation today? I have maria teresavalentina edgar 01/25/[address] you li ve. Do you have problems with any of the following? None of the above 01/25/2024 Food Insecurity Answer Date Recorded Within the past 12 months, y ou worried that your food would run out before you got money to buy more: Never True 01/25/2024 Within the past 12 months,th e food you bought just didn't last and you didn't have enough money to get more: Never True Transportation Answer Date Recorded In the past 12 months, has l ack of transportation kept you from medical appts, meetings, work or from getting things needed for daily living? No 01/25/2024 Utilities Answer Date Recorded In the past 12 months, has t he electric, gas, oil or water company threatened to shut off services in your home? No 01/25/2024 Depression Answer Date Recorded Patient Health Questionnaire-2 Score 0 02/02/2024 Internet Access Answer Date Recorded Internet Access Q1 Yes 01/25/2024 Internet Access Q2 Not on file 01/25/2024 Sex and Gender Information Value Date Recorded Sex Assigned at Male 03/01/2022 10:15 AM EDT Legal Sex Male 10:15 AM EDT Gender Identity Male 03/01/2022 10:15 AM EDT Sexual Orientation Straight 03/01/2022 10 :15 AM EDT documented as of this encounter Plan of Treatment Upcoming Encounters Date Type Department Care Team (Late st Contact Info) Description 01/15/2025 9:30 AM EDT Office Visit [facility] [address] [place] [address] Phil Waters MD [address] [place] [address] documented as of this encounter Visit Diagnoses Not on filedocumented in this encounter Additional Health Concerns Assessment Noted Time PHQ-9 Depression Total Score: 3 02/02/20 24 11:22 AM EDT documented as of this encounter Care Teams Escrow Manager Relationship Specialty Start Date End Date Alyse Parker MD [address] [place] [id number] PCP - General Family Medicine 01/17/23 documented as of this encounter
[2024-11-23 08:36] LABS: MANUAL DIFF FLAG NO
[2024-11-23 09:17] LABS: Hematocrit 43.6 % (42.0-52.0); Hemoglobin 15.3 g/dl (14.0-18.0); Imm Gran Abs Auto 0.02 X10*3/uL (0.00-0.03); Imm Gran Pct Auto 0.4 % (0.0-0.4); Lymphocytes Absolute Auto 3.1 X10*3/uL (1.2-4.9); Mean Corpuscular HGB Conc 35.1 g/dl (31.0-36.0); Mean Corpuscular Hemoglobin 31.7 pg (27.0-33.0); Mean Corpuscular Volume 90.5 fL (80.0-98.0); NRBC Abs Auto 0.000 X10*3/uL (0.0-0.012); NRBC Pct Auto 0.0 /100WBC (0.0-0.2); Platelet Count 193 X10*3/uL (160-400); Red Blood Count 4.82 X10*6/uL (4.60-5.80); White Blood Count 5.5 X10*3/uL (4.8-10.8)
[2024-11-23 09:52] LABS: Alanine Aminotransferase 12 U/L (0-40); Albumin Level 4.0 g/dL (3.5-5.0); Alkaline Phosphatase 71 U/L (39-117); Anion Gap 9 (12-20); Aspartate Amino Transferase 22 U/L (5-37); Blood Urea Nitrogen 14 mg/dL (9-16); Calcium 8.5 mg/dL (8.4-10.2); Carbon Dioxide 24 mmol/L (22-29); Chloride 110 mmol/L (96-108); Cholesterol 187 mg/dL (<200); Estimated Glomerular Filt Rate > 60; HDL Cholesterol 29 mg/dL (>40); Potassium 4.2 mmol/L (3.3-5.1); Sodium 139 mmol/L (135-145); Total Protein 7.3 g/dL (6.5-8.0); Triglycerides 95 mg/dL (<150)
[2024-11-23 09:59] LABS: PSA,Total (Free>4and<10) 4.26 ng/mL (0.00-4.00)
[2024-11-26 14:39] LABS: Free Prostate Spec Ag 1.1 ng/mL; Percent Free Prostate Spec Ag 24 % (calc) (>25)
[2024-11-27 05:13] LABS: Rubeola IgG (Measles) >300.00 AU/mL
== END 2024-11-23 08:16 | disposition home or self-care (01) ==
LOC: HO.LAB 08:15
PROVIDERS: PCP Family Medicine; Visit Provider Family Medicine
DX: Z01.84 Encounter for antibody response examination (principal); Z09 Encounter for follow-up examination after completed treatment for conditions other than malignant neoplasm; I10 Essential (primary) hypertension; Z12.5 Encounter for screening for malignant neoplasm of prostate
CPT/HCPCS: 36415; 80053; 80061; 84153; 84154; 84443; 85025; 86735; 86762; 86765

== ENCOUNTER 2024-12-31 10:37 | Emergency (ER) | payer MEDICARE, SELFPAY ==
--- NOTE | ~2024-12-31 | XR_ITS ---
CLINICAL HISTORY: COughing. penumonia, chest pain 1 view chest x-ray Comparison: CR/SR - XR CHEST 2 VIEWS - 11/10/23 14:50 EDT CR/SR - XR CHEST 2 VIEWS - 05/12/23 14:20 EST Findings: The lungs are clear. Normal size heart. No acute fracture. Median sternotomy. IMPRESSION: 1. No acute findings. This document has been electronically signed by: Roosevelt Washington DO on 12/31/2024 13:32:19
[2024-12-31 10:42] VITALS: BP 158/74; PULSE 72; RESP 20; TEMP 37; O2SAT 98; BMI 23.6
--- NOTE | 2024-12-31 10:53 | ECG_ITS ---
Test Reason : CHEST PAIN Blood Pressure : */* mmHG Vent. Rate : 66 BPM Atrial Rate : 66 BPM P-R Int : 176 ms QRS Dur : 84 ms QT Int : 384 ms P-R-T Axes : 33 -30 5 degrees QTcB Int : 402 ms Normal sinus rhythm Left axis deviation Inferior infarct (cited on or before 01-Jun-2018) Abnormal ECG When compared with ECG of 10-Nov-2023 13:43, No significant change was found Referred By: Neftaly Monreal Electronically Signed By: Yoni Garcia
--- NOTE | 2024-12-31 10:59 | ED_ITS ---
HPI - General Adult General Chief complaint: Upper Respiratory Symptoms Stated complaint: running nose cough Time Seen by Provider: 12/31/24 11:25 Source: patient and manager recruitment Mode of arrival: ambulatory Limitations: no limitations History of Present Illness ED Provider: DR. Capone HPI narrative: 69-year-old male presented for evaluation of 2 days of runny nose, sore throat, nonproductive cough, generalized body ache. No sick contact, no recent travel, no CP, no SOB, no abdominal pain. Related Data Home Medications ?Medication ?Instructions ?Recorded ?Confirmed atorvastatin 80 mg tablet 80 mg PO DAILY 01/31/2009/30 clonazepam 0.5 mg tablet 0.5 mg PO BID PRN 01/31/20 0 10/11/23 lisinopril 5 mg tablet 5 mg PO DAILY 01/31/2010/10 metoprolol tartrate 25 mg tablet 25 mg PO BID 01/31/20 10/11/23 Previous Rx's ?Medication ?Instructions ?Recorded baclofen 5 mg tablet 5 mg PO BEDTIME PRN muscle s pasm 05/12/23 #7 tabs lidocaine 5 % topical patch 1 patch topical DAILY #15 ea 05/12/23 (Lidoderm) tadalafil 5 mg tablet 5 mg PO DAILY PRN sexual act ivity 10/11/23 90 days #90 tabs albuterol sulfate 90 mcg/actuation 2 inh inhalation Q4 -6H PRN 11/10/23 breath activated powder inhaler shortness of breath or wheezing #1 ea azithromycin 250 mg tablet See Rx Instructions PO .COM PLEX #6 11/10/23 tabs benzonatate 100 mg capsule 100 mg PO BID PRN cough #20 caps 11/10/23 prednisone 20 mg tablet 20 mg PO DAILY 5 days #5 tab s 11/10/23 amoxicillin 875 mg-potassium 1 tab PO BID #14 tabs 05/26 clavulanate 125 mg tablet Allergies Allergy/AdvReac Type Severity Reaction Status Date / Time No Known Allergies (No Known Allergy Verified 12/31/24 10:45 Allergies*) Review of Systems 2 Review of Systems: all other systems are reviewed and are negative Constitutional: Reports as per HPI and Reports no additional constitutional complaints Eyes: Reports as per HPI and Reports no additional eye complaints Reports system reviewed and no additional complaints, except as documented Cardiovascular: Reports as per HPI and Reports no additional cardiovascular complaints Respiratory: Reports as per HPI and Reports no additional respiratory complaints Gastrointestinal: Reports as per HPI and Reports no additional gastrointestinal complaints Genitourinary: Reports no additional female genitourinary complaints Musculoskeletal: Reports no additional musculoskeletal complaints Skin/Breast: Reports system reviewed and no additional complaints, except as docu Psychiatric: Reports no additional psychiatric complaints Endocrine: Reports no additional endocrine complaints Hematologic/Lymphatic: Reports no additional hematologic/lymphatic complaints Allergic/Immunologic: Reports no additional allergic/immunologic complaints Reports system reviewed and no additional complaints, except as documented and Reports Abnormal speech present [facility] Past Medical History Medical History Hyperlipidemia H/O urinary retention HTN (hypertension) Colitis Decrease in appetite Coronary artery disease involving coronary bypass graft of [place] heart Peripheral tear of medial meniscus of left knee Left knee pain Surgical History History of colonoscopy (~2018) S/P CABG x 3 (~2017) History of cardiac catheterization (~2006) Family History Family History Father No problems noted. Mother No problems noted. Social History Social History Alcohol intake: current Alcohol intake frequency: does not drink Patient Tobacco Use Status: Never used Tobacco Advance Directives: No Advance Directives Information Provided: No Physical Exam ED Vital Signs: Vital Signs - 24 hr 12/31/24 10:42 Temperature 98.6 F Pulse Rate 72 Respiratory Rate 20 Blood Pressure 158/74 H Pulse Oximetry 98 Oxygen Delivery Method Room Air BMI result Body Mass Index 23.6 Vital signs have been reviewed and appear to be correct. Blood pressure elevated. Heart rate normal. Respiratory rate normal. Temperature normal. Oxygen saturation normal. Appearance: Alert. Oriented X3. No acute distress. Head: Normal external exam. Normocephalic. Atraumatic. No Palafox signs noted. No raccoon eyes noted Eyes: PERRLA. EOMI. Conjunctiva and sclera normal. Eyelids normal. ENT: TM's Normal. Pharynx normal. Uvula midline. Moist mucous membranes. No trismus noted. No drooling noted. No muffled voice noted. Neck: Normal inspection. Neck supple. FROM. No adenopathy. Thyroid Normal. No meningeal signs. No neck mass noted. CVS: Normal heart rate and rhythm. Heart sound normal. No murmurs noted. Pulses normal throughout. Respiratory: No respiratory distress. Painless inspiration. Breath sounds normal. No wheezes/rales/rhonchi noted. Chest nontender. No accessory muscle usage noted or decreased air movement noted. Abdomen: Soft and nontender. Bowel sounds normal in all 4 quadrants. No distention noted. No organomegaly noted. No visible injury noted. Back: No CVA tenderness. Full range of motion noted. Skin: Skin warm and dry. Normal skin color. Normal skin turgor. No rashes/lesions/lacerations noted. Extremities: No lower extremity edema. Extremities exhibit normal range of motion. Extremities nontender. Neuro: Oriented X 3. Cranial nerve exam: II-XII are grossly intact No motor deficit. No sensory deficit. Reflexes normal. Course Course Course Narrative: RME: 69 yold male presents to the ED for runny nose, coughing, chest pain, green phelghm, for the past couple of days. Patient denies any leg swelling, calf pain, pleurysiy, or any other concerning symptoms. Reevaluation(s) Reevaluation #1: + strep pharyngitis start on Augmentin. Negative signed chest x-ray for infiltrate or pneumonia. Negative cardiac enzymes. Negative signed EKG ischemic changes. Time: 11:56 Medical Decision Making Differential Diagnosis Differential Diagnoses: The differential diagnosis associated with the presentation includes ( Pneumonia, pneumothorax, pleural effusion, upper viral inflammatory infection, strep throat, electrolyte derangement, ACS, CHF, severe anemia.) Admission/Observation Consideration of admission/observation: Escalation of care including admission/observation considered Lab Data MDM Lab Attestation statement: I reviewed the patient's lab results. 12/31/24 11:06 12/31/24 11:06 Labs: Lab Results 12/31/24 12/31/24 Range/Units 11:05 11:06 WBC 8.6 (4.8-10.8) X10*3/uL RBC 4.95 (4.60-5.80) X10*6/uL Hgb 15.8 (14.0-18.0) g/dl Hct 44.1 (42.0-52.0) % MCV 89.1 (80.0-98.0) fL MCH 31.9 (27.0-33.0) pg MCHC 35.8 (31.0-36.0) g/dl RDW 13.3 (11.0-16.0) % Plt Count 172 (160-400) X10*3/uL MPV 9.7 (9.4-12.4) fL Immature Gran % (Auto) 0.3 (0.0-0.4) % Neut % (Auto) 56.4 (45-73) % Lymph % (Auto) 32.7 (20-40) % Story % (Auto) 8.7 (2-11) % Eos % (Auto) 1.4 (0-4) % Baso % (Auto) 0.5 (0-2) % Lymph # (Auto) 2.8 (1.2-4.9) X10*3/uL Story # (Auto) 0.8 (0.1-1.2) X10*3/uL Eos # (Auto) 0.1 (0.0-0.4) X10*3/uL Baso # (Auto) 0.0 (0.0-0.2) X10*3/uL Abs Immat Gran (auto) 0.03 (0.00-0.03) X10*3/uL Absolute Neuts (auto) 4.9 (2.0-8.3) x10*3/uL Absolute Nucleated RBC 0.000 (0.0-0.012) X10*3/uL Nucleated RBC % (auto) 0.0 (0.0-0.2) /100WBC PT 12.7 H (10.9-12.4) SEC INR 1.1 (0.9-1.1) APTT 32.7 (26.7-34.1) SEC Sodium 138 (135-145) mmol/L Potassium 4.1 (3.3-5.1) mmol/L Chloride 105 (96-108) mmol/L Carbon Dioxide 25 (22-29) mmol/L Anion Gap 12 (12-20) BUN 16 (9-16) mg/dL Creatinine 0.88 (0.5-1.4) mg/dL Estim Creat Clear Calc 74.4 Estimated GFR > 60 Random Glucose 147 H (60-115) mg/dL Calcium 8.6 (8.4-10.2) mg/dL Total Bilirubin 0.9 (0.0-1.0) mg/dL AST 21 (5-37) U/L ALT 9 (0-40) U/L Alkaline Phosphatase 72 (39-117) U/L B-Natriuretic Peptide 58 (<100) pg/mL Total Protein 7.3 (6.5-8.0) g/dL Albumin 4.1 (3.5-5.0) g/dL COVID-19 (BERKLEY) Negative (Negative) COVID-19 Clin Com See Note Influenza Type A (MATT) Negative (Negative) Influenza Type B (MATT) Negative (Negative) Influenza A & B Note See Note S. pyogenes GrpA MATT Positive A (Negative) Independent Interpretation I performed an independent interpretation of an: EKG and Plain X-Ray ( Chest: No acute intrathoracic pathology.) Radiology Impression Discussion of test interpretation with radiology: I have reviewed the radiologist's reading. Discharge Plan Discharge Clinical Impression: Acute streptococcal pharyngitis Patient Disposition: Home, Self-Care Instructions: Pharyngitis (ED) Prescriptions: New amoxicillin-pot clavulanate 875-125 mg tablet 1 tab PO BID Qty: 14 0RF No Action lidocaine [Lidoderm] 5 % adhesive patch,medicated 1 patch topical DAILY Qty: 15 0RF Rx Instructions: leave on most painful area for up to 12 hrs baclofen 5 mg tablet 5 mg PO BEDTIME PRN (Reason: muscle spasm) Qty: 7 0RF albuterol sulfate 90 mcg/actuation aerosol powdr breath activated 2 inh inhalation Q4-6H PRN (Reason: shortness of breath or wheezing) Qty: 1 0RF benzonatate 100 mg capsule 100 mg PO BID PRN (Reason: cough) Qty: 20 0RF prednisone 20 mg tablet 20 mg PO DAILY 5 Days Qty: 5 0RF azithromycin 250 mg tablet See Rx Instructions .ROUTE .COMPLEX Qty: 6 0RF Rx Instructions: For 250 mg dose pack: take 500 mg today (day 1), then 250 mg for 4 days (days 2-5) clonazepam 0.5 mg tablet 0.5 mg PO BID PRN lisinopril 5 mg tablet 5 mg PO DAILY atorvastatin 80 mg tablet 80 mg PO DAILY metoprolol tartrate 25 mg tablet 25 mg PO BID tadalafil 5 mg tablet 5 mg PO DAILY PRN (Reason: sexual activity) 90 Days Qty: 90 1RF Referrals: Alyse Parker MD [Primary Care Provider, Medical] Print Language: [place]
[2024-12-31 11:12] LABS: MANUAL DIFF FLAG NO
[2024-12-31 11:14] LABS: Hematocrit 44.1 % (42.0-52.0); Hemoglobin 15.8 g/dl (14.0-18.0); Imm Gran Abs Auto 0.03 X10*3/uL (0.00-0.03); Imm Gran Pct Auto 0.3 % (0.0-0.4); Lymphocytes Absolute Auto 2.8 X10*3/uL (1.2-4.9); Mean Corpuscular HGB Conc 35.8 g/dl (31.0-36.0); Mean Corpuscular Hemoglobin 31.9 pg (27.0-33.0); Mean Corpuscular Volume 89.1 fL (80.0-98.0); NRBC Abs Auto 0.000 X10*3/uL (0.0-0.012); NRBC Pct Auto 0.0 /100WBC (0.0-0.2); Platelet Count 172 X10*3/uL (160-400); Red Blood Count 4.95 X10*6/uL (4.60-5.80); White Blood Count 8.6 X10*3/uL (4.8-10.8)
--- OUTSIDE RECORDS SUMMARY | 2024-12-31 11:16 | XMS_ITS | Encounter Summary ---
Author Organization [employer] Address [address] [place] [address] Care Team Providers Care Relief Charge Nurse Name Role Phone Alyse Parker MD Primary Care Provider [phone] Encounter Details Date Type Department Care Team (Late st Contact Info) Description 04/24/2024 Telephone [facility] [address] [place] [address] Alyse Parker MD [address] [place], [place] [phone] Social History Tobacco Use Types Packs/Day Years [...] your housing situation today? I have maria teresa edgar 01/25/[address] you [...] Description 01/15/2025 9:30 AM EDT Office Visit [facility] MED [facility] PEDS [address] [place] [address] Phil Waters MD [address] [place] [address] documented as of this encounter Visit Diagnoses Not on filedocumented in this encounter Additional Health Concerns Assessment Noted Time PHQ-9 Depression Total Score: 3 02/02/20 24 11:22 AM EDT documented as of this encounter Care Teams Relief Charge Nurse Relationship Specialty Start Date End Date Alyse Parker MD [address] [place] [id number] PCP - General Family Medicine 01/17/23 documented as of this encounter
--- OUTSIDE RECORDS SUMMARY | 2024-12-31 11:16 | XMS_ITS | Encounter Summary ---
Author Organization [employer] Address [address] [place] [address] Care Team Providers Care Individual Pension Adviser Name Role Phone Alyse Parker MD Primary Care Provider [phone] Encounter Details Date Type Department Care Team (Late Contact Info) Description 11/19/2022 [facility] Rev Information Management [address] [place] [address] Carmen Caceres MD [address] [place] [address] Social History Tobacco Use Types Packs/Day Years Used Date Smoking Tobacco: Never Assessed Sex and Gender Information Value Date Recorded Sex Assigned at Male 03/01/2022 10:15 AM EDT Legal Sex Male 10:15 AM EDT Gender Identity Male 03/01/2022 10:15 AM EDT Sexual Orientation Straight 03/01/2022 10 :15 AM EDT documented as of this encounter Plan of Treatment Upcoming Encounters Date Type Department Care Team (Late Contact Info) Description 01/15/2025 9:30 AM EDT Office Visit [facility] PEDS [address] [place] [address] Phil Waters MD [address] [place] [address] documented as of this encounter Visit Diagnoses Not on filedocumented in this encounter Care Teams Individual Pension Adviser Relationship Specialty Start Date End Date Alyse Parker MD [address] [place] [address] PCP - General Family Medicine 01/17/23 documented as of this encounter
--- OUTSIDE RECORDS SUMMARY | 2024-12-31 11:16 | XMS_ITS | Encounter Summary ---
Author Organization [employer] Address [address] [place] [address] Care Team Providers Care Physician In Private Practice Name Role Phone Alyse Parker MD Primary Care Provider [phone] Encounter Details Date Type Department Care Team (Late Contact Info) Description 12/03/2022 Telephone [facility] [address] [place], [place] [phone] Alyse Parker MD [address] [place], [place] [phone] Social History Tobacco Use Types Packs/Day Years [...] Description 01/15/2025 9:30 AM EDT Office Visit [facility] [address] [place] [address] Phil Waters MD [address] [place] [address] documented as of this encounter Visit Diagnoses Not on filedocumented in this encounter Care Teams Physician In Private Practice Relationship Specialty Start Date End Date Alyse Parker MD [address] [place] [id number] PCP - General Family Medicine 01/17/23 documented as of this encounter
--- OUTSIDE RECORDS SUMMARY | 2024-12-31 11:16 | XMS_ITS | Clinical Summary ---
Author Organization [employer] Address [address] [facility] [address] [place] [address] Care Team Providers Care Port Cdl A Driver Name Role Phone Alyse Parker MD Primary Care Provider [phone] Allergies No known active allergies Medications tadalafil (Cialis) 5 MG tablet TAKE ONE TABLET BY MOUTH EVERY DAY NEEDED FOR SEXUAL ACTIVITY 08/06/19 23 Active rosuvastatin (Crestor) 40 MG tablet TOME JOELLEN TABLETA TODOS LOS D 11/03/19 23 Active metoprolol tartrate (Lopressor) 25 MG tablet TOME JOELLEN TABLETA DOS VECES AL D A 11/23/19 23 Active clopidogrel (Plavix) 75 MG tablet TOME JOELLEN TABLETA TODOS LOS D 12/07/19 23 Active clonazePAM (KlonoPIN) 0.5 MG tablet TOME JOELLEN TABLETA TODOS LOS D EN LA NC JESSIE CUANDO SEA NECESARIO 12/16/19 23 Active clonazePAM (KlonoPIN) 1 MG tablet Take 1 mg by mouth at bedtime. Active baclofen (Lioresal) 5 MG tablet TOME JOELLEN TABLETA POR V A ORAL AL ACOSTARSE PARA EL ESPASMO MUSCULAR CUANDO SEA NECESARIO 05/12/19 24 Active ProAir RespiClick 108 (90 Base) MCG/ACT aerosol powder TOME DOS INHALACIONES POR V A ORAL CADA CUATRO A SEIS HORAS CUANDO SEA NECESARIO 11/10/19 24 Active metoprolol succinate XL (Toprol-XL) 25 MG 24 hr tablet TOME 1 TABLETA POR V A ORAL DOS VECES AL D A FOR 30 DAYS 11/08/19 24 Active Azelastine HCl 137 MCG/SPRAY solution ADMINISTER 1 SPRAY INTO EACH NOSTRIL 2 TIMES DAILY. USE IN EACH NOSTRIL DIRECTED 90 mL 2 01/19/20 24 Active cetirizine (ZyrTEC) 10 MG tablet TAKE 1 TABLET BY MOUTH EVERY DAY 90 tablet 2 09/07/19 25 Active citalopram (CeleXA) 10 MG tablet TOME 1 TABLETA POR V A ORAL TODOS LOS D 10/04/19 25 Active traZODone (Desyrel) 50 MG tablet TOME 1 TABLETA POR V A ORAL TODOS LOS D AL ACOSTARSE 10/04/19 25 Active pseudoephedri ne (Sudafed) 60 MG tablet Take 1 tablet (60 mg) by mouth every 6 (six) hours if needed for congestion for up to 10 days. 30 tablet 04/24/20 24 025 Discontinued(M ed list cleanup (will not trigger notification to Pharmacy)) Active Problems Patient Care Coordination No te Formatting of this note migh t be different from the original. Psychiatry: Cory Garber MD Problem Noted Date Diagnosed Date Acute cough 05/21/2024 COVID 05/21/2024 Papule of skin 02/02/2024 Dizziness 10/14/2023 Assessment & Plan (10/17/2023 12:38 PM EDT): -Labs were ordered -Referred for CT Head w/o Contrast Last time the pt felt dizziness he tested positive for COVID-19 -Ordered POCT Rapid Covid-19 BinaxNOW Upper respiratory tract infection 08/10/2023 Assessment & Plan (12/04/2024 10:45 AM EDT): Swabs negative. -No evidence of respiratory distress. Symptoms mild. -No evidence of dehydration. -Supportive care advised. -Isolation recommendations discussed. -ER precautions discussed. -Seek medical attention for worsening symptoms. Orders: Influenza A (ID NOW Rapid Molecular) Influenza B (ID NOW Rapid Molecular) POCT Rapid COVID Ag Assessment & Plan (08/10/2023 5:43 PM EDT): - The patient presents with symptoms suggestive of an upper respiratory infection. Negative COVID and Flu test. -Prescribed Benzonatate 200 mg and Robitussin 100 mg / 5 mg liquid - Advised to monitor symptoms and return if they worsen. Vague bodily discomfort 05/24/2023 Assessment & Plan (05/24/2023 2:39 PM EST): Non specific symptoms, reports his sister recently passed of COVID-19, around 1 week ago. Will get him tested. Stable vitals. Neg rapid, send out. Sacroiliac joint dysfunction 03/31/2023 Assessment & Plan (04/14/2023 5:54 PM EST): Presented with lateral knee pain and left hip pain, SI joint tenderness, ITB and SI J, referred to PT, if no improvement consider further imaging to elucidate etiology of symptoms Assessment & Plan (03/31/2023 2:47 PM EST): Patient still presents complaints of knee pain will be referred to Physical Therapy. If physical therapy doesn't improve concern, patient will sent for imaging (MRI) for further evaluation. Iliotibial band syndrome, left 03/31/2023 Assessment & Plan (05/24/2023 1:35 PM EST): Patient declined referral elsewhere for PT, will like trial of referral to orthopedic, specialist. Refer to office notes from Apr 2023 for PE details. Assessment & Plan (04/14/2023 5:53 PM EST): Patient will be referred to PT and will be sent to imaging Assessment & Plan (03/31/2023 2:49 PM EST): -Patient will be referred to Physical Therapy and will be sent for imaging. Generalized abdominal cramping 01/17/2023 Assessment & Plan (03/31/2023 2:30 PM EST): ddx IBS, tread with FODMap diet. Controlled. Hold off Referral for GI for now. Assessment & Plan (01/17/2023 10:12 AM EDT): Will send labs Immunization due 01/17/2023 Encounter for health-related screening Assessment & Plan (01/17/2023 10:13 AM EDT): Advised patient to bring medications and prior medical records upon next appointment. Patient will be given a medication refill. Follow up in 6-8 weeks. 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 Cont current regimen. Followup 4 months Assessment & Plan (02/02/2024 1:52 PM EDT): BP: 136/78 . Controlled. Hyperlipidemia 03/28/2012 History of myocardial infarction 03/28/2012 Depressive disorder 03/28/2012 Atherosclerosis of coronary artery 03/28/2012 Encounters Date Type Department Care Team Description 12/04/2024 10:20 AM EDT Office Visit [facility] [address] [place] [phone] Marina Huntley MD Viral upper respiratory tract infection 12/04/2024 Travel 12/04/2024 Telephone [facility] [address] [place] [phone] Alyse Parker MD Nurse Triage 11/28/2024 Results Follow-Up [facility] [address] [place] [address] Alyse Parker MD PSA, Free and Total 11/23/2024 Orders Only [facility] [address] [place] [address] Alyse Parker MD 11/22/2024 Telephone [facility] [address] [place] [address] Alyse Parker MD 10/24/2024 3:45 PM EDT Office Visit [facility] [address] [place] [address] Alyse Parker MD Colon cancer screening (Primary Dx); Need for immunization follow-up; Hypertension, unspecified type; Prostate cancer screening 10/24/2024 Travel 10/22/2024 Telephone [facility] [address] [place] [address] Alyse Parker MD chart prep 10/17/2024 Patient Outreach [facility] [address], [place] [phone] Alyse Parker MD Pre-visit Planning (SDOH screening negative and Tobacco screening negative) from Last 3 Months Immunizations Immunization Administration Dates Next Due Influenza High-dose Quadrivalent Preservative Fr ee 01/17/2023,02/09/2022 Influenza Quadrivalent Adjuvanted 12/30/2020, Influenza injectable quadriv alent IIV4 with preservative 03/13/2018,03/22/2016 Influenza injectable quadrivalent preservative f ree 01/29/2017,01/13/2015 Influenza, High Dose Seasonal, Preservative Free 02/02/2024,02/23/2019 Influenza, IIV3, injectable 02/25/2014, 1 Influenza, Split (incl. purified surface antigen ) 03/20/2013,03/28/2012 Moderna Covid-19 Vaccine 12+ 09/03/2020 Pneumococcal Conjugate PCV 20 03/31/2023 Pneumococcal Polysaccharide PPSV23 09/03/2020, TD (adult), 2 Lf tetanus tox oid, preservative free, adsorbed 09/25/1996 Tdap 03/31/2023,03/28/2012 Zoster, live 02/17/2015 Social History Tobacco Use Types Packs/Day Years Used Date Smoking Tobacco: Never Passive Smoke Exposure: Never Smokeless Tobacco: Never Tobacco Cessation:Counseling Given: Not Answered Alcohol Use Standard Drinks/Week Comments Never 0 (1 standard drink = 0.6 oz pur e alcohol) Depression Answer Date Recorded Patient Health Questionnaire-9 Score 3 02/02/2024 Patient Health Questionnaire-9 Score 3 02/02/2024 Last PHQ-9: Questionnaire Data Not on file 1 Housing Stability Answer Date Recorded What is your housing situation today? I have maria teresa herve 01/25/[address] you li [...] Orientation Straight 03/01/2022 10 :15 AM EDT Last Filed Vital Signs Vital Sign Reading Time Taken Comments Blood Pressure 127/79 12/04/2024 10:31 AM EDT Pulse 67 12/04/2024 10:31 AM EDT Temperature 36.7 C (98.1 F) 12/04/2024 10:31 AM EDT Respiratory Rate 18 12/04/2024 10:31 AM EDT Oxygen Saturation 97% 12/04/2024 10:31 AM EDT Inhaled Oxygen Concentration - - Weight 69.9 kg (154 lb) 12/04/2024 10:31 AM EDT Height 167.6 cm (5' 6 ) 10/24/2024 3:43 PM EDT Body Mass Index 24.86 10/24/2024 3:43 PM EDT Plan of Treatment Upcoming Encounters Date Type Department Care Team ([facility] st Contact Info) Description 01/15/2025 9:30 AM EDT Office Visit [facility] [address] [place] [address] Phil Waters MD [address] [place] [phone] Health Maintenance Due Date Last Done Comments CT Colonography 1953 Colonoscopy 1953 Colorectal Cancer Screening 1955 FIT DNA/Cologuard 1953 FIT 1953 FOBT 1955 Sigmoidoscopy 1953 Alcohol/Substance Use Screening 1965 Zoster Vaccines (2 of 3) 04/14/2015 02/17/2015 COVID-19 Vaccine ( season) 2024 02/15/2024, 04/12/2023, 02/09/2022, Additional history exists Influenza Vaccine (#1) 2024 , 01/17/2023, 02/09/2022, Additional history exists Depression Screening 02/01/2025 02/02/2024, 02/02/20 24 SDOH Screening 10/17/2025 10/17/2024 Tobacco Screening 12/04/2025 12/04/2024 Lipid Panel 11/23/2029 11/23/2024, 01/01, 02/06/2020 DTaP/Tdap/Td Vaccines (3 - Td or Tdap) 03/31/2033 03/31/2023, 03/28/2012, 09/25/1996 Hepatitis C Screening Completed 01/26/2023 Pneumococcal Vaccine: 50+ Years Completed 03/31/2023, 09/03/2020, 03/28/2012 RSV Patients and Patients Aged 60 years or older Completed 02/15/2024 HIB Vaccines Aged Out No longer eligi ble based on patient's age to complete this topic HPV Vaccines Aged Out No longer eligi ble based on patient's age to complete this topic Hepatitis A Vaccines Aged Out No long er eligible based on patient's age to complete this topic Hepatitis B Vaccines Aged Out No long er eligible based on patient's age to complete this topic IPV Vaccines Aged Out No longer eligi ble based on patient's age to complete this topic Meningococcal B Vaccine Aged Out No l onger eligible based on patient's age to complete this topic Meningococcal Vaccine Aged Out No eduardo charisse eligible based on patient's age to complete this topic RSV under 20 months Aged Out No longe r eligible based on patient's age to complete this topic Rotavirus Vaccines Aged Out No longer eligible based on patient's age to complete this topic Procedures Procedure Name Priority Date/Time Associated Diagnosis Comments CBC WITH AUTO DIFFERENTIAL Routine 12/31/2024 11:06 AM EDT POCT INFLUENZA B (ID NOW RAPID MOLECULAR) Routine 12/04/2024 10:45 AM EDT Viral upper respiratory tract infection POCT INFLUENZA A (ID NOW RAPID MOLECULAR) Routine 12/04/2024 10:45 AM EDT Viral upper respiratory tract infection POCT RAPID COVID ANTIGEN Routine 12/04/2024 10:35 AM EDT Viral upper respiratory tract infection PSA, FREE AND TOTAL Routine 11/23/2024 9 :59 AM EDT PSA, TOTAL WITH REFLEX TO PSA, FREE Routine 11/23/2024 8:34 AM EDT Prostate cancer screening TSH W/REFLEX TO FT4 Routine 11/23/2024 8 :34 AM EDT Hypertension, unspecified type LIPID PANEL, STANDARD Routine 11/23/2024 8:34 AM EDT Hypertension, unspecified type COMPREHENSIVE METABOLIC PANEL Routine 11/23/2024 8:34 AM EDT Hypertension, unspecified type CBC WITH AUTO DIFFERENTIAL Routine 11/23/2024 8:34 AM EDT Hypertension, unspecified type MEASLES, MUMPS, AND RUBELLA (MMR) AB (IGG) PANEL, IMMUNE STATUS Routine 11/23/2024 8:34 AM EDT Need for immunization follow-up HEPATITIS C ANTIBODY Routine 01/26/2023 9:46 AM EDT Encounter for health-related screening from Last 3 Months or Most Recently Relevant to Health Maintenance Results * CBC auto differential (12/31/2024 11:06 AM EDT) Only the most recent of2 resultswithin the time period is included. White Blood Count 8.6 4.8 - 10.8 X10*3/uL [facility] Red Blood Count 4.95 4.60 - 5.80 X10*6/uL [facility] Hemoglobin 15.8 14.0 - 18.0 g/dl [facility] Hematocrit 44.1 42.0 - 52.0 % [facility] Mean Corpuscular Volume 89.1 80.0 - 98.0 fL [facility] Mean Corpuscular Hemoglobin 31.9 27.0 - 33.0 pg [facility] Mean Corpuscular HGB Conc 35.8 31.0 - 36.0 g/dl [facility] Red Cell Distribution Width 13.3 11.0 - 16.0 % [facility] Platelet Count 172 160 - 400 X10*3/uL [facility] Mean Platelet Volume 9.7 9.4 - 12.4 fL [facility] Neutrophils Percent Auto 56.4 45 - 73 % [facility] Imm Gran Pct Auto 0.3 0.0 - 0.4 % [facility] Lymphocytes Percent Auto 32.7 20 - 40 % [facility] Monocytes Percent Auto 8.7 2 - 11 % [facility] Eosinophils Percent Auto 1.4 0 - 4 % [facility] Basophils Percent Auto 0.5 0 - 2 % [facility] NRBC Pct Auto 0.0 0.0 - 0.2 /100WBC [facility] Neutrophils Absolute Auto 4.9 2.0 - 8.3 x10*3/uL [facility] Imm Gran Abs Auto 0.03 0.00 - 0.03 X10*3/uL [facility] Lymphocytes Absolute Auto 2.8 1.2 - 4.9 X10*3/uL [facility] Monocytes Absolute Auto 0.8 0.1 - 1.2 X10*3/uL [facility] Eosinophils Absolute Auto 0.1 0.0 - 0.4 X10*3/uL [facility] Basophils Absolute Auto 0.0 0.0 - 0.2 X10*3/uL [facility] NRBC Abs Auto 0.000 0.0 - 0.012 X10*3/uL [facility] 12/31/2024 11:0 6 AM EDT 12/31/2024 11:11 AM EDT us Generic External Data Provider LAB BLOOD ORDERAB LES Final Result Performing Organization Address City/[facility]/ZIP Co de Phone Number [facility] [address] [place] [phone] * Influenza B (ID NOW Rapid Molecular) (12/04/2024 10:45 AM EDT) Influenza B Negative Negative, Indeterminate [facility] Swab 12/04/2024 10:4 5 AM EDT us Marina Huntley MD POINT OF CARE TEST ENTER/E DIT ORDERABLES Final Result Performing Organization Address [facility]/ZIP Co de Phone Number [facility] [address] [place] [phone] * Influenza A (ID NOW Rapid Molecular) (12/04/2024 10:45 AM EDT) Influenza A Negative Negative, Indeterminate [facility] Swab 12/04/2024 10:4 5 AM EDT Marina Huntley MD POINT OF CARE TEST ENTER/E DIT ORDERABLES Final Result Performing Organization Address [facility] Co de Phone Number [facility] [address] [place] [phone] * POCT Rapid COVID Ag (12/04/2024 10:35 AM EDT) Rapid COVID Ag Negative Swab 12/04/2024 10:3 5 AM EDT us Marina Huntley MD POINT OF CARE TEST ENTER/E DIT ORDERABLES Final Result * (ABNORMAL) PSA, Free and Total (11/23/2024 9:59 AM EDT) PSA, Total 4.5(A) < OR = 4.0 ng/mL [facility] PSA % Free 24(A) >25 % (calc) [facility] Comment: PSA(ng/mL) Free PSA(%) Estimated(x) Probability of Cancer(as%)0-2.5 (*) Approx. 12.6-4.0(1) 0-27(2) 24(3)4.1-10(4) 0-10 56 11-15 28 16-20 20 21-25 16 >or =26 8>10(+) N/A >50References:(1)Jill et al.:Urology 60: 469-474 (2002) (2)Jill et al.:J.Urol 168: 922-925 (2001) Free PSA(%) Sensitivity(%) Specificity(%) < or = 25 85 19 < or = 30 93 9 (3)Catalona et al.:BINA 277: 7347-8201 (1996) (4)Catalona et al.:BINA 279: [id number] (1997)(x)These estimates vary with age, ethnicity, family history and MANUEL results.(*)The diagnostic usefulness of % Free PSA has not been established in patients with total PSA below 2.6 ng/mL(+)In men with PSA above 10 ng/mL, prostate cancer risk is determined by total PSA alone.The Total PSA value from this assay system isstandardized against the equimolar PSA standard.The test result will be approximately 20% higherwhen compared to the WHO-standardized Total PSA(Siemens assay). Comparison of serial PSA resultsshould be interpreted with this fact in mind.PSA was performed using the Sandrine CoulterImmunoassay method. Values obtained from differentassay methods cannot be used interchangeably. PSAlevels, regardless of value, should not be interpretedas absolute evidence of the presence or absence ofdisease.THIS TEST WAS PERFORMED AT:[facility] [place] [phone] MEYERS MD PSA, Free 1.1 ng/mL [facility] 11/23/2024 9:59 AM EDT 11/23/2024 9:59 AM EDT Alyse Parker MD LAB BLOOD ORDERABLES Final Re sult Performing Organization Address [facility] Co de Phone Number [facility] [address] [place] [phone] * TSH W/Reflex to FT4 (11/23/2024 8:34 AM EDT) TSH reflex Free T4 2.39 0.32 - 4.0 uIU/mL [facility] Blood Venous blood specimen / Unknown 11/23/2024 8:34 AM EDT 11/23/2024 8:34 AM EDT Alyse Parker MD LAB BLOOD ORDERABLES Final Re sult Performing Organization Address [facility] de Phone Number [facility] [address] [place] [phone] * (ABNORMAL) PSA, Total With Reflex to PSA, Free (11/23/2024 8:34 AM EDT) PSA,Total (Free>4and<10) 4.26(H) 0.00 - 4.00 ng/mL [facility] Comment:PSA methodology: Abb shantelle Alimiguel ángelty i ChemiluminescentMicroparticle Immunoassay (CMIA) 11/23/2024 8:34 AM EDT 11/23/2024 8:34 AM EDT Alyse Parker MD LAB BLOOD ORDERABLES Final Re sult Performing Organization Address [facility] Co de Phone Number [facility] [address] [place] [phone] [phone] * Measles, Mumps, and Rubella (MMR) Antibodies??(IgG) Panel, Immune Status (11/23/2024 8:34 AM EDT) Mumps Virus IgG Antibody 64.40 AU/mL [facility] Comment:AU/mL Interpretation ------- <9.00 Not consistent with immunity9.00-10.99 Equivocal>10.99 Consistent with immunityThe presence of mumps IgG antibody suggests immunizationor past or current infection with mumps virus. Rubella IgG Antibody 1.27 Index [facility] Comment:Index Interpretatio n ----- <0.90 Not consistent with immunity 0.90-0.99 Equivocal > or = 1.00 Consistent with immunityThe presence of rubella IgG antibody suggestsimmunization or past or current infection withrubella virus.THIS TEST WAS PERFORMED AT:[facility] [place] [phone] MEYERS MD Rubeola IgG (Measles) >300.00 AU/mL [facility] Comment:AU/mL Interpretation ----- <13.50 Not consistent with xdarsopn24.50-16.49 Equivocal>16.49 Consistent with immunityThe presence of measles IgG suggests immunization orpast or current infection with measles virus.For additional information, please refer tohttp://education.ITS Compliance/faq/HXU941(This link is being provided for informational/educational purposes only.) Blood 11/23/2024 8:34 AM EDT 11/23/2024 8:34 AM EDT us Alyse Parker MD LAB BLOOD ORDERABLES Final Re sult [facility] [address] [place] [phone] * (ABNORMAL) Lipid Panel, Standard (11/23/2024 8:34 AM EDT) Triglycerides 95 <150 mg/dL [facility] Comment:Desirable Triglyceri de: less than 150 mg/dLBorderline High Triglyceride 150-199 mg/dLHigh Triglyceride: 200-499 mg/dLVery High Triglyceride: greater than or equal to 5OO mg/dL Cholesterol 187 <200 mg/dL [facility] Comment:Desirable Cholestero l: less than 200 mg/dLBorderline High Cholesterol: 200-239 mg/dLHigh Cholesterol: greater than 239 mg/dL LDL Cholesterol Calculated 139(H) <100 mg/dL [facility] Comment:Desirable LDL: less than 100 mg/dLNear Optimal/Above Optimal LDL: 110- 129 mg/dLBorderline High LDL: 130-159 mg/dLHigh LDL: 160-189 mg/dLVery High LDL: greater than or equal to 190 mg/dL HDL Cholesterol 29(L) >40 mg/dL [facility] Comment:Desirable HDL: great er than 40 mg/dL Note: This HDL assay may give artificially low results in patients with liver disease. Blood Venous blood specimen / Unknown 11/23/2024 8:34 AM EDT 11/23/2024 8:34 AM EDT us Alyse Parker MD LAB BLOOD ORDERABLES Final Re sult [facility] [address] [place] [address] [phone] * (ABNORMAL) Comprehensive Metabolic Panel (11/23/2024 8:34 AM EDT) Sodium 139 135 - 145 mmol/L [facility] Potassium 4.2 3.3 - 5.1 mmol/L [facility] Chloride 110(H) 96 - 108 mmol/L [facility] Carbon Dioxide 24 22 - 29 mmol/L [facility] Anion Gap 9(L) 12 - 20 [facility] Urea Nitrogen (BUN) 14 9 - 16 mg/dL [facility] Creatinine, Serum 0.71 0.5 - 1.4 mg/dL [facility] Estimated Glomerular Filt Rate >60 [facility] Comment:Chronic Kidney Disea se: Estimated GFR < 60 mL/min/1.61h7Hcoxvm Kidney Disease: Estimated GFR < 15 mL/min/1.73m2 Glucose 105 60 - 115 mg/dL [facility] Calcium 8.5 8.4 - 10.2 mg/dL [facility] Bilirubin, Total 1.0 0.0 - 1.0 mg/dL [facility] Aspartate Amino Transferase 22 5 - 37 U/L [facility] Alanine Aminotransferase 12 0 - 40 U/L [facility] Total Protein 7.3 6.5 - 8.0 g/dL [facility] Albumin Level 4.0 3.5 - 5.0 g/dL [facility] Alkaline Phosphatase 71 39 - 117 U/L [facility] Blood Venous blood specimen / Unknown 11/23/2024 8:34 AM EDT 11/23/2024 8:34 AM EDT Alyse Parker MD LAB BLOOD ORDERABLES Final Re sult Performing Organization Address [facility] Co de Phone Number [facility] [address] [place] [phone] * Hepatitis C Ab (01/26/2023 9:46 AM EDT) Hepatitis C Antibody Nonreactive Nonreactive [facility] Comment:Antibodies to HCV no t detected; does not exclude early acuteHCV infection. Blood 01/26/2023 9:46 AM EDT 01/26/2023 2:42 PM EDT Alyse Parker MD LAB BLOOD ORDERABLES Final Re sult Performing Organization Address [facility] Co de Phone Number [facility] [address] [place] [phone] from Last 3 Months or Most Recently Relevant to Health Maintenance Insurance [employer] (HMO D-SNP) [employer] [id number] Care Teams [place] A Driver Relationship Specialty Start Date End Date Alyse Parker MD [address] [place] [phone] PCP - General Family Medicine 01/17/23
--- OUTSIDE RECORDS SUMMARY | 2024-12-31 11:16 | XMS_ITS | Encounter Summary ---
Author Organization [employer] Address [address] [facility] 7t [place] [address] Care Team Providers Care Woodworking Shop Laborer Name Role Phone Alyse Parker MD Primary Care Provider [phone] Reason for Visit * Reason Onset Date Comments New Patient Appt 12/03/2022 Encounter Details Date Type Department Care Team ([facility] st Contact Info) Description 12/03/2022 Telephone [facility] MED[facility]INE [address] [place] [address] Jones Segal MD [address] [place] [address] New Patient Appt Social History Tobacco Use Types Packs/Day Years Used Date Smoking Tobacco: Never Assessed Sex and Gender Information Value Date Recorded Sex Assigned at Male 03/01/2022 10:15 AM EDT Legal Sex Male 10:15 AM EDT Gender Identity Male 03/01/2022 10:15 AM EDT Sexual Orientation Straight 03/01/2022 10 :15 AM EDT documented as of this encounter Miscellaneous Notes * Telephone Encounter - Mica Griggs - 12/03/2022 12:12 PM EDT PAR Mica Long called pt to Offer SPANISH INTERPRETER appt. Pt demographics and insurance information were verified. Pt reports the following medical conditions: Heart Surgery done 5-7 years Ago, High Blood pressure and other chronic conditions. Pt is currently taking medication: Yes ( advice to please bring appt. ) Pt given SPANISH INTERPRETER appt with Dr. Alyse Parker on 01/17/2023 @ 9:30 am. Pt will be sent appt reminder card and medical release form and agrees to complete and to return to medical records prior to SPANISH INTERPRETER appt. * Telephone Encounter - Mica Griggs - 12/03/2022 11:00 AM EDT New Patients Par Mica Long called to schedule New patient appt, pt did not answer left voicemail to give a call at [phone]. documented in this encounter Plan of Treatment Upcoming Encounters Date Type Department Care Team (Late st Contact Info) Description 01/15/2025 9:30 AM EDT Office Visit [facility] MED & PEDS [address] [place] [address] Phil Waters MD [address] [place], [place] [phone] documented as of this encounter Visit Diagnoses Not on filedocumented in this encounter Care Teams Woodworking Shop Laborer Relationship Specialty Start Date End Date Alyse Parker MD [address] [place] [phone] PCP - General Family Medicine 01/17/23 documented as of this encounter
[2024-12-31 11:21] LABS: INTERNATIONAL NORM RATIO 1.1 (0.9-1.1); Prothrombin Time 12.7 SEC (10.9-12.4)
[2024-12-31 11:22] LABS: IDNOW Serial# 6674DD1D; Strep A Nucleic Acid Positive (Negative)
[2024-12-31 11:24] LABS: Partial Thromboplastin Time 32.7 SEC (26.7-34.1)
[2024-12-31 11:29] LABS: Alanine Aminotransferase 9 U/L (0-40); Albumin Level 4.1 g/dL (3.5-5.0); Alkaline Phosphatase 72 U/L (39-117); Anion Gap 12 (12-20); Aspartate Amino Transferase 21 U/L (5-37); Blood Urea Nitrogen 16 mg/dL (9-16); Calcium 8.6 mg/dL (8.4-10.2); Carbon Dioxide 25 mmol/L (22-29); Chloride 105 mmol/L (96-108); Creatinine Clr Calc Pharmacy 74.4; Estimated Glomerular Filt Rate > 60; Potassium 4.1 mmol/L (3.3-5.1); Sodium 138 mmol/L (135-145); Total Protein 7.3 g/dL (6.5-8.0)
[2024-12-31 11:33] LABS: IDNOW Serial# 58CA691E; Influenza B2 Negative (Negative)
[2024-12-31 11:35] LABS: B Type Natriuretic Peptide 58 pg/mL (<100)
[2024-12-31 11:41] LABS: COVID-19 Test Negative (Negative); IDNOW Serial# 55D5AD1C
--- NOTE | 2024-12-31 12:20 | PC.NURSE ---
pt medicated per order
--- NOTE | 2024-12-31 12:25 | PC.NURSE ---
patient a&ox3, vss, rr equal/non labored, pt c/o throat pain 11/08, pt medicated with abx per order, call hernández within reach, plan of care ongoing
[2024-12-31 12:35] VITALS: BP 122/76; PULSE 62; RESP 16; O2SAT 97
[2024-12-31 12:49] LABS: Troponin-I High Sensitivity < 2.7 ng/L (<3.5-35.0)
[2024-12-31 14:52] VITALS: BP 128/78; PULSE 68; RESP 18; TEMP 36.6; O2SAT 98
== END 2024-12-31 14:52 | disposition home or self-care (01) ==
PROVIDERS: Physician Assistant; Emergency Provider Emergency Medicine; PCP Family Medicine
DX: R07.9 Chest pain, unspecified (principal); J02.0 Streptococcal pharyngitis; R05.9 Cough, unspecified
CPT/HCPCS: 71045; 80053; 83880; 84484; 85025; 85610; 85730; 87502; 87635; 87651; 93005; 99283; 99285

== ENCOUNTER → 2024-12-31 10:53 | Outpatient (BNV) | payer MEDICARE, SELFPAY | PROVIDERS: Emergency Provider Emergency Medicine; PCP Family Medicine; Visit Provider Family Medicine | DX: J18.9 Pneumonia, unspecified organism (principal) | CPT/HCPCS: 71045 ==

== ENCOUNTER → 2024-12-31 10:53 | Outpatient (BNV) | payer MEDICARE, SELFPAY | PROVIDERS: Emergency Provider Emergency Medicine; PCP Family Medicine; Visit Provider Internal Medicine Cardiovascular Disease | DX: R94.31 Abnormal electrocardiogram [ECG] [EKG] (principal); I25.2 Old myocardial infarction | CPT/HCPCS: 93010 ==

== ENCOUNTER 2025-01-27 09:57 | Emergency (ER) | payer OTHER, SELFPAY ==
--- NOTE | ~2025-01-27 | XR_ITS ---
CLINICAL HISTORY: cough 2 view chest x-ray Comparison: CR - XR CHEST 1V - 12/31/2024 11:11 AM EDT Findings: There is a developing right perihilar airspace opacification suggestive of early pneumonia.. Normal size heart. No acute fracture. The patient is status post median sternotomy. IMPRESSION: 1. There is a developing right perihilar airspace opacification suggestive of early pneumonia. This document has been electronically signed by: Roberto Carlos Slaughter MD on 01/27/2025 12:07:13
[2025-01-27 10:04] VITALS: BP 164/90; PULSE 74; RESP 18; TEMP 36.7; O2SAT 95; BMI 26.3
[2025-01-27 10:10] VITALS: PULSE 69; O2SAT 97
--- NOTE | 2025-01-27 10:12 | ECG_ITS ---
Test Reason : cp Blood Pressure : */* mmHG Vent. Rate : 72 BPM Atrial Rate : 72 BPM P-R Int : 160 ms QRS Dur : 86 ms QT Int : 382 ms P-R-T Axes : 32 -29 19 degrees QTcB Int : 418 ms Normal sinus rhythm Inferior infarct (cited on or before 01-Jun-2018) Abnormal ECG When compared with ECG of 31-Dec-2024 11:24, No significant change was found Referred By: Generic ED Physician Electronically Signed By: Yoni Garcia
[2025-01-27 10:27] LABS: MANUAL DIFF FLAG NO
[2025-01-27 10:28] LABS: Hematocrit 43.9 % (42.0-52.0); Hemoglobin 15.7 g/dl (14.0-18.0); Imm Gran Abs Auto 0.03 X10*3/uL (0.00-0.03); Imm Gran Pct Auto 0.6 % (0.0-0.4); Lymphocytes Absolute Auto 2.0 X10*3/uL (1.2-4.9); Mean Corpuscular HGB Conc 35.8 g/dl (31.0-36.0); Mean Corpuscular Hemoglobin 31.7 pg (27.0-33.0); Mean Corpuscular Volume 88.7 fL (80.0-98.0); NRBC Abs Auto 0.000 X10*3/uL (0.0-0.012); NRBC Pct Auto 0.0 /100WBC (0.0-0.2); Platelet Count 178 X10*3/uL (160-400); Red Blood Count 4.95 X10*6/uL (4.60-5.80); White Blood Count 5.4 X10*3/uL (4.8-10.8)
[2025-01-27 10:42] LABS: Alanine Aminotransferase 13 U/L (0-40); Albumin Level 4.0 g/dL (3.5-5.0); Alkaline Phosphatase 69 U/L (39-117); Anion Gap 10 (12-20); Aspartate Amino Transferase 23 U/L (5-37); Blood Urea Nitrogen 13 mg/dL (9-16); Calcium 8.8 mg/dL (8.4-10.2); Carbon Dioxide 24 mmol/L (22-29); Chloride 107 mmol/L (96-108); Creatinine Clr Calc Pharmacy 73.6; Estimated Glomerular Filt Rate > 60; Potassium 4.0 mmol/L (3.3-5.1); Sodium 137 mmol/L (135-145); Total Protein 7.5 g/dL (6.5-8.0)
--- NOTE | 2025-01-27 10:42 | ED.GENADULT ---
HPI - General Adult General Chief complaint: Upper Respiratory Symptoms Stated complaint: congestion, dizzy, chest pain from coughing Time Seen by Provider: 01/27/25 10:42 Source: patient Mode of arrival: ambulatory Limitations: no limitations History of Present Illness ED Provider: HPI narrative: 69-year-old male, in the beginning of this month was diagnosed with strep throat, presenting coughing for the past 3 days, states his is sick with similar symptoms, no sore throat no fevers or chills, he reported slight positional dizziness when he is getting up from a seated position. No chest pain no nausea no vomiting reported. Related Data Home Medications ?Medication ?Instructions ?Recorded ?Confirmed atorvastatin 80 mg tablet 80 mg PO DAILY 01/31/20 10/11/23 clonazepam 0.5 mg tablet 0.5 mg PO BID PRN 01/31/20 10/11/23 lisinopril 5 mg tablet 5 mg PO DAILY 01/31/20 10/11/23 metoprolol tartrate 25 mg tablet 25 mg PO BID 01/31/20 10/11/23 Previous Rx's ?Medication ?Instructions ?Recorded baclofen 5 mg tablet 5 mg PO BEDTIME PRN muscle spasm 05/12/23 #7 tabs lidocaine 5 % topical patch 1 patch topical DAILY #15 ea 05/12/23 (Lidoderm) tadalafil 5 mg tablet 5 mg PO DAILY PRN sexual activity 10/11/23 90 days #90 tabs albuterol sulfate 90 mcg/actuation 2 inh inhalation Q4-6H PRN 11/10/23 breath activated powder inhaler shortness of breath or wheezing #1 ea azithromycin 250 mg tablet See Rx Instructions PO .COMPLEX #6 11/10/23 tabs benzonatate 100 mg capsule 100 mg PO BID PRN cough #20 caps 11/10/23 prednisone 20 mg tablet 20 mg PO DAILY 5 days #5 tabs 11/10/23 amoxicillin 875 mg-potassium 1 tab PO BID #14 tabs 12/31/24 clavulanate 125 mg tablet benzonatate 200 mg capsule 200 mg PO TID PRN cough #14 caps 01/27/25 doxycycline hyclate 100 mg capsule 100 mg PO BID 7 days #14 caps 01/27/25 Allergies Allergy/AdvReac Type Severity Reaction Status Date / Time No Known Allergies (No Known Allergy Verified 01/27/25 10:07 Allergies*) Review of Systems Constitutional: Constitutional: Reports as per HPI [facility] Past Medical History Medical History Hyperlipidemia H/O urinary retention HTN (hypertension) Colitis Decrease in appetite Coronary artery disease involving coronary bypass graft of enterprise heart Peripheral tear of medial meniscus of left knee Left knee pain Surgical History History of colonoscopy (~2018) S/P CABG x 3 (~2017) History of cardiac catheterization (~2006) Family History Family History Father No problems noted. Mother No problems noted. Social History Social History Alcohol intake: current Alcohol intake frequency: does not drink Patient Tobacco Use Status: Never used Tobacco Smoked in Last 30 Days: No Advance Directives: No Advance Directives Information Provided: Yes Physical Exam ED Vital Signs: Vital Signs - 24 hr 01/27/25 10:04 01/27/25 10:10 01/27/25 11:42 Temperature 98.0 F 98.0 F Pulse Rate 74 62 Respiratory Rate 18 12 Blood Pressure 164/90 H 126/76 Pulse Oximetry 95 97 97 Oxygen Delivery Method Room Air Room Air Room Air 01/27/25 12:04 Temperature Pulse Rate 58 Respiratory Rate 14 Blood Pressure 122/73 Pulse Oximetry 98 Oxygen Delivery Method Room Air BMI result Body Mass Index 26.3 Const Other: Gen: ?Overall well-appearing patient HEENT: PERRLA, EOMI, MMM, uvula midline, no tonsillar exudates, bilateral TMs are clear Neck: No lymphadenopathy CV: RRR, no obvious murmurs appreciated Resp: ?No wheezing rales rhonchi no stridor moving air well Abd: ?Bowel sounds are present, no tenderness no rebound no rigidity MSK: FROM, strength 5/5 all extremities Skin: Warm, dry, intact, Neuro: ?Alert and oriented x3, moving upper and lower extremities symmetrically, no obvious facial asymmetry noted Medications Administered Discontinued Medications Generic Name Dose Route Start Last Admin Trade Name Freq PRN Reason Stop Dose Admin Dexamethasone 10 mg 01/27/25 11:57 01/27/25 12:04 Dexamethasone 2 Mg Tablet PO 01/27/25 11:58 10 mg ONCE ONE Administration Guaifenesin 10 ml 01/27/25 11:10 01/27/25 11:40 Guaifenesin 200 Mg/10 Ml 10 Ml Liquid PO 01/27/25 11:11 10 ml ONCE ONE Administration Medical Decision Making Medical Decision Making [facility] Narrative: 11:16 AM 01/27/2025 (Dr. Jed Barry): Patient is presenting with respiratory symptoms ENT and pulmonary examination is otherwise reassuring, lower suspicion for pneumonia we will obtain chest x-ray, no evidence for repeat pharyngitis as he had in the beginning of this month, also had some other nonspecific symptoms such as dizziness we will make sure this is not cardiac related given his age. No hypoxia tachycardic no PE risk factors elicited did not feel further imaging or blood work for that is indicated. 12:18 chest x-ray with early consolidation will discharge on antibiotics Differential Diagnosis Differential Diagnoses: The differential diagnosis associated with the presentation includes (Pharyngitis, tonsillitis, peritonsillar abscess, pneumonia, CHF, dehydration) Admission/Observation Consideration of admission/observation: Escalation of care including admission/observation considered Lab Data [facility] Lab Attestation statement: I reviewed the patient's lab results. 01/27/25 10:21 01/27/25 10:21 Labs: Lab Results 01/27/25 Range/Units 10:21 WBC 5.4 (4.8-10.8) X10*3/uL RBC 4.95 (4.60-5.80) X10*6/uL Hgb 15.7 (14.0-18.0) g/dl Hct 43.9 (42.0-52.0) % MCV 88.7 (80.0-98.0) fL MCH 31.7 (27.0-33.0) pg MCHC 35.8 (31.0-36.0) g/dl RDW 13.3 (11.0-16.0) % Plt Count 178 (160-400) X10*3/uL MPV 10.0 (9.4-12.4) fL Immature Gran % (Auto) 0.6 H (0.0-0.4) % Neut % (Auto) 47.2 (45-73) % Lymph % (Auto) 36.4 (20-40) % [place] % (Auto) 10.8 (2-11) % Eos % (Auto) 4.1 H (0-4) % Baso % (Auto) 0.9 (0-2) % Lymph # (Auto) 2.0 (1.2-4.9) X10*3/uL [place] # (Auto) 0.6 (0.1-1.2) X10*3/uL Eos # (Auto) 0.2 (0.0-0.4) X10*3/uL Baso # (Auto) 0.1 (0.0-0.2) X10*3/uL Abs Immat Gran (auto) 0.03 (0.00-0.03) X10*3/uL Absolute Neuts (auto) 2.5 (2.0-8.3) x10*3/uL Absolute Nucleated RBC 0.000 (0.0-0.012) X10*3/uL Nucleated RBC % (auto) 0.0 (0.0-0.2) /100WBC Sodium 137 (135-145) mmol/L Potassium 4.0 (3.3-5.1) mmol/L Chloride 107 (96-108) mmol/L Carbon Dioxide 24 (22-29) mmol/L Anion Gap 10 L (12-20) BUN 13 (9-16) mg/dL Creatinine 0.80 (0.5-1.4) mg/dL Estim Creat Clear Calc 73.6 Estimated GFR > 60 Random Glucose 190 H (60-115) mg/dL Calcium 8.8 (8.4-10.2) mg/dL Total Bilirubin 0.8 (0.0-1.0) mg/dL AST 23 (5-37) U/L ALT 13 (0-40) U/L Alkaline Phosphatase 69 (39-117) U/L Troponin I High Sens < 2.7 (<3.5-35.0) ng/L Total Protein 7.5 (6.5-8.0) g/dL Albumin 4.0 (3.5-5.0) g/dL Independent Interpretation I performed an independent interpretation of an: EKG (72 beats per minute otherwise normal ECG without dysrhythmia, AV messi blocks or ST-T changes to suspect underlying ACS, my independent interpretation) and Plain X-Ray (Sternotomy wires in place otherwise unremarkable chest x-ray no consolidations, no pneumothorax no vascular congestion) Radiology Impression Discussion of test interpretation with radiology: I have reviewed the radiologist's reading. ( IMPRESSION: 1. There is a developing right perihilar airspace opacification suggestive of early pneumonia.) Prescription Management I considered prescription management with: Antibiotic Discharge Plan Discharge Clinical Impression: Community acquired pneumonia Additional Instructions: Your chest x-ray showed early pneumonia he will be discharged on antibiotics and cough medication Follow up with the PCP Any other issues concerns come back to the ED Prescriptions: New benzonatate 200 mg capsule 200 mg PO TID PRN (Reason: cough) Qty: 14 0RF doxycycline hyclate 100 mg capsule 100 mg PO BID 7 Days Qty: 14 0RF No Action lidocaine [Lidoderm] 5 % adhesive patch,medicated 1 patch topical DAILY Qty: 15 0RF Rx Instructions: leave on most painful area for up to 12 hrs baclofen 5 mg tablet 5 mg PO BEDTIME PRN (Reason: muscle spasm) Qty: 7 0RF albuterol sulfate 90 mcg/actuation aerosol powdr breath activated 2 inh inhalation Q4-6H PRN (Reason: shortness of breath or wheezing) Qty: 1 0RF benzonatate 100 mg capsule 100 mg PO BID PRN (Reason: cough) Qty: 20 0RF prednisone 20 mg tablet 20 mg PO DAILY 5 Days Qty: 5 0RF azithromycin 250 mg tablet See Rx Instructions .ROUTE .COMPLEX Qty: 6 0RF Rx Instructions: For 250 mg dose pack: take 500 mg today (day 1), then 250 mg for 4 days (days 2-5) amoxicillin-pot clavulanate 875-125 mg tablet 1 tab PO BID Qty: 14 0RF clonazepam 0.5 mg tablet 0.5 mg PO BID PRN lisinopril 5 mg tablet 5 mg PO DAILY atorvastatin 80 mg tablet 80 mg PO DAILY metoprolol tartrate 25 mg tablet 25 mg PO BID tadalafil 5 mg tablet 5 mg PO DAILY PRN (Reason: sexual activity) 90 Days Qty: 90 1RF Referrals: Alyse Parker MD [Primary Care Provider, Medical] - 10 days Print Language: Guamanian
--- OUTSIDE RECORDS SUMMARY | 2025-01-27 10:43 | XMS_ITS | Encounter Summary ---
Author Organization [employer] Address [address] [facility] 7 [place] [address] Care Team Providers Care Room Service Attendant Name Role Phone Alyse Parker MD Primary Care Provider [phone] Encounter Details Date Type Department Care Team (Late Contact Info) Description 11/19/2022 [facility] Information Management [address] [place] [address] Carmen Caceres MD [address] [place] [address] Social History Tobacco Use Types Packs/Day Years [...] Department Care Team (Late Contact Info) Description 02/19/2025 10:45 AM EDT Office Visit [facility] CHC MED & PEDS [address] [place] [address] Phil Waters MD [address] [place] [address] documented as of this encounter Visit Diagnoses Not on filedocumented in this encounter Care Teams Room Service Attendant Relationship Specialty Start Date End Date Alyse Parker MD [address] [place] [address] PCP - General Family Medicine 01/17/23 documented as of this encounter
--- OUTSIDE RECORDS SUMMARY | 2025-01-27 10:43 | XMS_ITS | Encounter Summary ---
Author Organization [employer] Address [address] [facility] 7t [place] [address] Care Team Providers Care Neuropathologist Name Role Phone Alyse Parker MD Primary Care Provider [phone] Reason for Visit * Reason Onset Date Comments New Patient Appt 12/03/2022 Encounter Details Date Type Department Care Team ([facility] st Contact Info) Description 12/03/[address] [facility] MEDICINE [address] [place] [address] Jones Segal MD [address] [place] [address] New Patient Appt Social History Tobacco Use [...] PAR Mica Long called pt to Offer PULPWOOD DEALER appt. Pt demographics and insurance information were verified. Pt reports the following medical conditions: Heart Surgery done 5-7 years Ago, High Blood pressure and other chronic conditions. Pt is currently taking medication: Yes ( advice to please bring appt. ) Pt given PULPWOOD DEALER appt with Dr. Alyse Parker on 01/17/2023 @ 9:30 am. Pt will be sent appt reminder card and medical release form and agrees to complete and to return to medical records prior to PULPWOOD DEALER appt. * Telephone Encounter - Mica Griggs - 12/03/2022 11:00 AM EDT New Patients Par Mica Long called to schedule New patient appt, pt did not answer left voicemail to give a call at [phone]. documented in this encounter Plan of Treatment Upcoming Encounters Date Type Department Care Team (Late st Contact Info) Description 02/19/2025 10:45 AM EDT Office Visit [facility] CHC MED & PEDS [address] [place] [address] Phil Waters MD [address] [place], [place] [phone] documented as of this encounter Visit Diagnoses Not on filedocumented in this encounter Care Teams Neuropathologist Relationship Specialty Start Date End Date Alyse Parker MD [address] [place] [phone] PCP - General Family Medicine 01/17/23 documented as of this encounter
--- OUTSIDE RECORDS SUMMARY | 2025-01-27 10:43 | XMS_ITS | Encounter Summary ---
Author Organization [employer] Address [address] [facility] 7t [place] [address] Care Team Providers Care Rice Farmer Name Role Phone Alyse Parker MD Primary Care Provider [phone] Encounter Details Date Type Department Care Team (Late Contact Info) Description 12/03/2022 Telephone [facility] ED MED & PEDS [address] [place], [place] [phone] Alyse Parker MD [address] [place], [place] [phone] Social History Tobacco Use Types Packs/Day Years [...] Description 02/19/2025 10:45 AM EDT Office Visit [facility] ED MED & PEDS [address] [place] [address] Phil Waters MD [address] [place] [address] documented as of this encounter Visit Diagnoses Not on filedocumented in this encounter Care Teams Rice Farmer Relationship Specialty Start Date End Date Alyse Parker MD [address] [place] [address] PCP - General Family Medicine 01/17/23 documented as of this encounter
--- OUTSIDE RECORDS SUMMARY | 2025-01-27 10:43 | XMS_ITS | Encounter Summary ---
Author Organization [employer] Address [address] [facility] [address] 7[address] [place] [address] Care Team Providers Care Machine Set Up Operator Paper Goods Name Role Phone Alyse Parker MD Primary Care Provider [phone] Encounter Details Date Type Department Care Team (Late st Contact Info) Description 04/24/2024 Telephone [facility] MEDICINE [address] [place] [address] Alyse Parker MD [address] [place], [place] [phone] Social History Tobacco Use Types Packs/Day Years [...] Upcoming Encounters Date Type Department Care Team ([facility] st Contact Info) Description 02/19/2025 10:45 AM EDT Office Visit [facility] MED & PEDS [address] [place] [address] Phil Waters MD [address] [place] [address] documented as of this encounter Visit Diagnoses Not on filedocumented in this encounter Additional Health Concerns Assessment Noted Time PHQ-9 Depression Total Score: 3 02/02/20 24 11:22 AM EDT documented as of this encounter Care Teams Machine Set Up Operator Paper Goods Relationship Specialty Start Date End Date Alyse Parker MD [address] [place] [address] PCP - General Family Medicine 01/17/23 documented as of this encounter
--- OUTSIDE RECORDS SUMMARY | 2025-01-27 10:43 | XMS_ITS | Clinical Summary ---
Author Organization [employer] Address [address] [facility] [address] [place] [address] Care Team Providers Care Loan Reviewer Name Role Phone Alyse Parker MD Primary Care Provider [phone] Allergies No known active allergies Medications tadalafil [...] JOELLEN TABLETA TODOS LOS D EN LA MS JESSIE CUANDO SEA NECESARIO 12/16/19 23 Active [...] A FOR 30 DAYS 11/08/19 24 Active cetirizine (ZyrTEC) 10 MG tablet TAKE 1 TABLET BY MOUTH EVERY DAY 90 tablet 2 05/08/20 25 Active citalopram (CeleXA) 10 MG tablet TOME 1 TABLETA POR V A ORAL TODOS LOS D 10/04/19 25 Active traZODone (Desyrel) 50 MG tablet TOME 1 TABLETA POR V A ORAL TODOS LOS D AL ACOSTARSE 10/04/19 Active Azelastine HCl 137 MCG/SPRAY solution ADMINISTER 1 SPRAY INTO EACH NOSTRIL 2 TIMES DAILY. USE IN EACH NOSTRIL DIRECTED 30 mL 2 01/18/20 Active Azelastine HCl 137 MCG/SPRAY solution ADMINISTER 1 SPRAY INTO EACH NOSTRIL 2 TIMES DAILY. USE IN EACH NOSTRIL DIRECTED 90 mL 2 01/19/20 24 2024 Discontinued(R eorder (will not trigger notification to Pharmacy)) brompheniramin e-pseudoephedr ine-DM 30-2-10 MG/5ML syrupIndicatio ns:Viral upper respiratory tract infection Take 5 mL by mouth if needed in the morning, at noon, in the evening, and at bedtime for cough for up to 10 days. 120 mL 01/09/20 25 2024 Active Problems Patient Care Coordination No te Formatting of this note migh t be different from the original. Psychiatry: Cory Garber MD Problem Noted Date Diagnosed Date Viral upper respiratory tract infection 01/09/20 Assessment & Plan (01/08/2025 3:45 PM EDT): Advised to drink plenty of fluids and rest I prescribed for patient cough syrup to be taken as needed Acute cough 05/21/2024 COVID 05/21/2024 Papule of [...] Encounters Date Type Department Care Team Description 01/17/2025 Refill [facility] [address] [place] [address] Alyse Parker MD 01/15/2025 9:30 AM EDT Office Visit [facility] [address] [place] [address] Phil Waters MD Trichofolliculoma (Primary Dx) 01/15/2025 Travel 01/08/2025 3:20 PM EDT Office Visit [facility] [address] [place] [address] Krissy Abraham MD Viral upper respiratory tract infection 01/08/2025 Travel 01/01/2025 Telephone [facility] [address] [place] [address] Alyse Parker MD ER Follow-up 12/31/2024 Orders Only [facility] External Provider, [facility] 12/04/2024 10:20 AM EDT Office Visit [facility] [address] [place] [address] Marina Huntley MD Viral upper respiratory tract infection 12/04/2024 Travel 12/04/2024 Telephone [facility] [address] [place] [address] Alyse Parker MD Nurse Triage 11/28/2024 Results Follow-Up [facility] [address] [place] [address] Alyse Parker MD PSA, Free and Total 11/23/2024 Orders Only [facility] [address] [place] [address] Alyse Parker MD 11/22/2024 Telephone [facility] [address] [place], [place] [phone] Alyse Parker MD from Last 3 Months Immunizations Immunization Administration [...] Sign Reading Time Taken Comments Blood Pressure 130/75 01/15/2025 9:34 AM EDT Pulse 66 01/15/2025 9:34 AM EDT Temperature 36.5 C (97.7 F) 01/15/2025 9:34 AM EDT Respiratory Rate 20 01/15/2025 9:34 AM EDT Oxygen Saturation 98% 01/15/2025 9:34 AM EDT Inhaled Oxygen Concentration - - Weight 70.3 kg (155 lb) 01/15/2025 9:34 AM EDT Height 167.6 cm (5' 6 ) 01/15/2025 9:34 AM EDT Body Mass Index 25.02 01/15/2025 9:34 AM EDT Plan of Treatment Upcoming Encounters Date Type Department Care Team (Late st Contact Info) Description 02/19/2025 10:45 AM EDT Office Visit [facility] [address] [place], [place] [phone] Phil Waters MD [address] [place] [address] Health Maintenance Due Date Last Done Comments [...] Screening 12/04/2025 12/04/2024 Lipid Panel 11/23/2029 11/23/2024, 0910/2022, 02/06/2020 DTaP/Tdap/Td Vaccines (3 - Td or [...] Procedure Name Priority Date/Time Associated Diagnosis Comments CRYOTHERAPY SKIN LESION Routine 01/15/2025 10:01 PM EDT Trichofolliculoma POCT INFLUENZA B (ID NOW RAPID MOLECULAR) Routine 01/08/2025 2:59 PM EDT Viral upper respiratory tract infection POCT INFLUENZA A (ID NOW RAPID MOLECULAR) Routine 01/08/2025 2:59 PM EDT Viral upper respiratory tract infection POCT RAPID COVID ANTIGEN Routine 01/08/2025 2:59 PM EDT Viral upper respiratory tract infection XR CHEST 1 VIEW Routine 12/31/2024 1:32 PM EDT HIGH SENSITIVITY TROPONIN I Routine 12/31/2024 11:06 AM EDT COVID-19 ID NOW (GUTIERREZ) Routine 12/31/2024 11:06 AM EDT COMPREHENSIVE METABOLIC PANEL Routine 12/31/2024 11:06 AM EDT CBC WITH AUTO DIFFERENTIAL Routine 12/31/2024 11:06 AM EDT B TYPE NATRIURETIC PEPTIDE (BNP) Routine 12/31/2024 11:05 AM EDT APTT Routine 12/31/2024 11:05 AM EDT PROTHROMBIN TIME-INR Routine 12/31/2024 11:05 AM EDT INFLUENZA A B2 ID NOW (GUTIERREZ) Routine 12/31/2024 11:05 AM EDT STREP A NUCLEIC ACID Routine 12/31/2024 11:05 AM EDT POCT INFLUENZA B (ID NOW [...] Recently Relevant to Health Maintenance Results * Cryotherapy, skin lesion (01/15/2025 10:01 PM EDT) Phil Parish MD - 01/15/2025 10:01 PM EDT Phil Waters MD 01/15/2025 10:04 PM Cryotherapy, skin lesion Date/Time: 01/15/2025 10:01 PM Performed by: Phil Waters MD Authorized by: Phil Waters MD Consent: Consent obtained: Verbal Consent given by: Patient Procedure risks and benefits discussed: Yes Patient questions answered: No Patient agrees, verbalizes understanding, and wants to proceed: No Educational handouts given: No Instructions and paperwork completed: Yes Warren protocol: Procedure explained and questions answered to patient or proxy's satisfaction: yes Relevant documents present and verified: no Test results available: no Imaging studies available: no Required blood products, implants, devices, and special equipment available: no Site/side marked: no Immediately prior to procedure, a time out was called: yes Patient identity confirmed: Verbally with patient Indications: Indications: Trichofolliculoma Sedation: Sedation type: None Anesthesia: Anesthesia method: None Procedure specific details: Cryotherapy as per protocole Post-procedure details: Procedure completion: Tolerated well, no immediate complications us Phil Waters MD DERM PROCEDURE ORDERABLES F inal Result * Influenza B (ID NOW Rapid Molecular) (01/08/2025 2:59 PM EDT) Only the most recent of2 resultswithin the time period is included. Influenza B Negative Negative, Indeterminate [facility] Swab 01/08/2025 2:59 PM EDT us Krissy Brambila MD POINT OF CARE TEST EN TER/EDIT ORDERABLES Final Result Performing Organization Address [facility] Co de Phone Number [facility] [address] [place] [address] [phone] * Influenza A (ID NOW Rapid Molecular) (01/08/2025 2:59 PM EDT) Only the most recent of2 resultswithin the time period is included. Influenza A Negative Negative, Indeterminate [facility] Swab 01/08/2025 2:59 PM EDT us Krissy Brambila MD POINT OF CARE TEST EN TER/EDIT ORDERABLES Final Result Performing Organization Address [facility] Number [facility] [address] [place] [phone] * POCT Rapid COVID Ag (01/08/2025 2:59 PM EDT) Only the most recent of2 resultswithin the time period is included. Rapid COVID Ag Negative [facility] Swab 01/08/2025 2:59 PM EDT us Krissy Brambila MD POINT OF CARE TEST EN TER/EDIT ORDERABLES Final Result Performing Organization Address [facility] de Phone Number [facility] [address] [place] [address] [phone] * XR Chest 1 View (12/31/2024 1:32 PM EDT) Anatomical Region Laterality Modality Chest Radiographic Mary ging 12/31/2024 1:32 PM EDT Narrative 12/31/2024 1:34 PM EDT [address] [address] XRay Report Signed Patient: David Matias MR#: [id number] : 1955 Acct:[id number] Age/Sex: 69 / M ADM Date: 12/31/24 Loc: HO.ED Attending Dr: Ordering Physician: Neftaly Monreal Date of Service: 12/31/24 Procedure(s): XR chest 1V Accession Number(s): [id number] cc: Neftaly Monreal; Alyse Parker MD CLINICAL HISTORY: COughing. penumonia, chest pain 1 view chest x-ray Comparison: CR/SR - XR CHEST 2 VIEWS - 11/10/23 14:50 EDT CR/SR - XR CHEST 2 VIEWS - 05/12/23 14:20 EST Findings: The lungs are clear. Normal size heart. No acute fracture. Median sternotomy. IMPRESSION: 1. No acute findings. This document has been electronically signed by: Roosevelt Washington DO on 12/31/2024 13:32:19 Dictated By: Roosevelt Washington DO Signed By: <Electronically signed by Roosevelt Washington DO in OV> 12/31/24 1333 DD/ 1332 TD/TT: 12/31/24 1332 Wiring Mechanic: Procedure Note Donotuseinterpreter, Image - 12/31/2024 [place] [address] XRay Report Signed Patient: Kelsey Matias#: [id number] : 1955cct:[id number] Age/Sex: 69 / MADM Date: 12/31/24 Loc: HO.ED Attending Dr: Ordering Physician: Neftaly Monreal Date of Service: 12/31/24 Procedure(s): XR chest 1V Accession Number(s): [id number] cc: Neftaly Monreal; Alyse Parker MD CLINICAL HISTORY: COughing. penumonia, chest pain 1 view chest x-ray Comparison: CR/SR - XR CHEST 2 VIEWS - 11/10/23 14:50 EDT CR/SR - XR CHEST 2 VIEWS - 05/12/23 14:20 EST Findings: The lungs are clear. Normal size heart. No acute fracture. Median sternotomy. IMPRESSION: 1. No acute findings. This document has been electronically signed by: Roosevelt Washington DO on 12/31/2024 13:32:19 Dictated By: Roosevelt Washington DO Signed By: <Electronically signed by Roosevelt Washington DO in OV> 12/31/24 1333 DD/ 1332 TD/TT: 12/31/24 1332 Wiring Mechanic: [facility] External Provider IMG XR PROCEDURES Edited Result - Final * COVID-19 ID NOW (Kenguru) (12/31/2024 11:06 AM EDT) IDNOW SERIAL# [id number] [facility] COVID-19 TEST Negative Negative [facility] COVID-19 NOTE See Note [facility] Comment: Results are for the identification of SARS-CoV2 RNA. TheSARS-CoV2 RNA is generally detectable in respiratory samplesduring the acute phase of infection. Positive results areindicative of the presence of SARS-CoV-2 RNA; clinicalcorrelation with patient history and other diagnosticinformation is necessary to determine patient infectionstatus. Positive results do not rule out bacterial infectionor co- infection with other viruses.Testing facilities within the [facility] and [facility] are required to report all positive results tothe appropriate public health authorities.Negative results should be treated as presumptive and, ifinconsistent with clinical signs and symptoms or necessaryfor patient management, should be tested with differentauthorized or cleared molecular tests. Negative results donot preclude SARS-CoV2 RNA infection and should not be usedas the sole basis for patient management decisions. Negativeresults should be considered in the context of a patient'srecent exposures, history and the presence of clinical signsand symptoms consistent with COVID-19.This test has been authorized by the FDA under an EmergencyUse Authorization (EUA) for use by authorized laboratories.Testing performed on the Mailgun ID NOW utilizing NAAT. 12/31/2024 11:0 6 AM EDT 12/31/2024 11:11 AM EDT us Generic External Data Provider LAB MOLECULAR SERGIO GNOSTICS ORDERABLES Final Result Performing Organization Address [facility] Co de Phone Number [facility] [address] [place] [phone] * High Sensitivity Troponin I (12/31/2024 11:06 AM EDT) [facility] TROPONIN I HIGH SENSITIVITY <2.7 <3.5 - 35.0 ng/L [facility] Comment:The Gutierrez high sens itivity Troponin-I results should beused in conjunction with other diagnostic information suchas ECG, clinical observations and information, and patientsymptoms to aid in the diagnosis of DE. 12/31/2024 11:0 6 AM EDT 12/31/2024 11:11 AM EDT us Generic External Data Provider LAB BLOOD ORDERAB LES Final Result Performing Organization Address [facility] Co de Phone Number [facility] [address] [place] [address] [phone] * CBC auto differential (12/31/2024 11:06 AM EDT) Only the most recent of2 resultswithin the time period is included. [facility] White Blood Count 8.6 4.8 - 10.8 X10*3/uL [facility] Red Blood Count 4.95 4.60 - 5.80 X10*6/uL [facility] Hemoglobin 15.8 14.0 - 18.0 g/dl [facility] Hematocrit 44.1 42.0 - 52.0 % [facility] Mean Corpuscular Volume 89.1 80.0 - 98.0 fL [facility] Mean Corpuscular Hemoglobin 31.9 27.0 - 33.0 pg [facility] Mean Corpuscular HGB Conc 35.8 31.0 - 36.0 g/dl [facility] Red Cell Distribution Width 13.3 11.0 - 16.0 % [facility] Platelet Count 172 160 - 400 X10*3/uL [facility] Mean Platelet Volume 9.7 9.4 - 12.4 fL [facility] Neutrophils Percent Auto 56.4 45 - 73 % [facility] Imm Gran Pct Auto 0.3 0.0 - 0.4 % [facility] Lymphocytes Percent Auto 32.7 20 - 40 % [facility] Monocytes Percent Auto 8.7 2 - 11 % [facility] Eosinophils Percent Auto 1.4 0 - 4 % [facility] Basophils Percent Auto 0.5 0 - 2 % [facility] NRBC Pct Auto 0.0 0.0 - 0.2 /100WBC [facility] Neutrophils Absolute Auto 4.9 2.0 - 8.3 x10*3/uL [facility] Imm Gran Abs Auto 0.03 0.00 - 0.03 X10*3/uL [facility] Lymphocytes Absolute Auto 2.8 1.2 - 4.9 X10*3/uL [facility] Monocytes Absolute Auto 0.8 0.1 - 1.2 X10*3/uL [facility] Eosinophils Absolute Auto 0.1 0.0 - 0.4 X10*3/uL [facility] Basophils Absolute Auto 0.0 0.0 - 0.2 X10*3/uL [facility] NRBC Abs Auto 0.000 0.0 - 0.012 X10*3/uL [facility] 12/31/2024 11:0 6 AM EDT 12/31/2024 11:11 AM EDT us Generic External Data Provider LAB BLOOD ORDERAB LES Final Result [facility] [address] [place], [place] [phone] * (ABNORMAL) Comprehensive Metabolic Panel (12/31/2024 11:06 AM EDT) Only the most recent of2 resultswithin the time period is included. Sodium 138 135 - 145 mmol/L [facility] Potassium 4.1 3.3 - 5.1 mmol/L [facility] Chloride 105 96 - 108 mmol/L [facility] Carbon Dioxide 25 22 - 29 mmol/L [facility] Anion Gap 12 12 - 20 [facility] Urea Nitrogen (BUN) 16 9 - 16 mg/dL [facility] Creatinine, Serum 0.88 0.5 - 1.4 mg/dL [facility] Creatinine Clr Calc Pharmacy 74.4 [facility] Comment:eGFR (calculated fro m the MDRD study equation) and eCrCl(calculated from the Cockcroft-Gault equation) are based ondifferent parameters and may not yield comparable results.If eCrCl result is absurd, please check patient'sheight/weight. Estimated Glomerular Filt Rate >60 [facility] Comment:Chronic Kidney Disea se: Estimated GFR < 60 mL/min/1.60w2Fccjqa Kidney Disease: Estimated GFR < 15 mL/min/1.73m2 Glucose 147(H) 60 - 115 mg/dL [facility] Calcium 8.6 8.4 - 10.2 mg/dL [facility] Bilirubin, Total 0.9 0.0 - 1.0 mg/dL [facility] Aspartate Amino Transferase 21 5 - 37 U/L [facility] Alanine Aminotransferase 9 0 - 40 U/L [facility] Total Protein 7.3 6.5 - 8.0 g/dL [facility] Albumin Level 4.1 3.5 - 5.0 g/dL [facility] Alkaline Phosphatase 72 39 - 117 U/L [facility] 12/31/2024 11:0 6 AM EDT 12/31/2024 11:11 AM EDT us Generic External Data Provider LAB BLOOD ORDERAB LES Final Result [facility] [address] [place] [phone] * Influenza A B2 ID NOW (Gutierrez) (12/31/2024 11:05 AM EDT) IDNOW SERIAL# [id number] [facility] Influenza A Negative Negative [facility] Influenza B2 Negative Negative [facility] Influenza A B2 Note See Note [facility] Comment:The Gutierrez ID NOW In fluenza A B2 test is used for thequalitative detection of influenza A and B from patientswith signs and symptoms of respiratory infection.Negative results do not preclude influenza virus infectionand should not be used as the sole basis for diagnosis,treatment or other patient management decisions.There is a risk of false negative results due to thepresence of variants in the viral targets of the assay, lowlevels of virus in the specimen and co- infection withRespiratory Syncytial Virus. 12/31/2024 11:0 5 AM EDT 12/31/2024 11:11 AM EDT Generic External Data Provider LAB MICROBIOLOGY - GENERAL ORDERABLES Final Result Performing Organization Address [facility] Co de Phone Number [facility] [address] [place] [phone] * (ABNORMAL) Strep A Nucleic Acid (12/31/2024 11:05 AM EDT) IDNOW SERIAL# [id number] [facility] Strep A Nucleic Acid Positive(A ) Negative [facility] Comment:All test results mus t be correlated with clinical findings.This test has not been evaluated for monitoring treatment ofinfection.Additional follow-up testing using the culture method isrequired if the result is negative and clinical symptomspersist, or in the event of an acute rheumatic feveroutbreak. 12/31/2024 11:0 5 AM EDT 12/31/2024 11:11 AM EDT us Generic External Data Provider LAB MICROBIOLOGY - GENERAL ORDERABLES Final Result Performing Organization Address [facility] Co de Phone Number [facility] [address] [place] [phone] * Partial Thromboplastin Time, Activated (APTT) (12/31/2024 11:05 AM EDT) Partial Thromboplastin Time 32.7 26.7 - 34.1 SEC [facility] 12/31/2024 11:0 5 AM EDT 12/31/2024 11:11 AM EDT us Generic External Data Provider LAB BLOOD ORDERAB LES Final Result Performing Organization Address [facility] Co de Phone Number [facility] [address] [place] [phone] * (ABNORMAL) Prothrombin Time-INR (12/31/2024 11:05 AM EDT) [facility] Prothrombin Time 12.7(H) 10.9 - 12.4 SEC [facility] INTERNATIONAL NORM RATIO 1.1 0.9 - 1.1 [facility] Comment:INTERNATIONAL NORMAL IZED RATIO (INR) REFERENCE RANGES Reference RangeFor patients not on anticoagulant therapy: 0.9 - 1.1INR ranges for oral anticoagulanttherapy:For prevention and treatment of venous thrombosis and pulmonary embolism: 2.0 - 3.0For acute myocardial infarction with aspirin therapy: 2.0 - 3.0For acute myocardial infarction without aspirin therapy: 3.0 - 4.0For patients with mechanical prosthetic heart valves: 2.5 - 3.5 12/31/2024 11:0 5 AM EDT 12/31/2024 11:11 AM EDT us Generic External Data Provider LAB BLOOD ORDERAB LES Final Result Performing Organization Address [facility] Co de Phone Number [facility] [address] [place] [phone] * B Type Natriuretic Peptide (BNP) (12/31/2024 11:05 AM EDT) Pathologist [facility] B Type Natriuretic Peptide 58 <100 pg/mL [facility] 12/31/2024 11:0 5 AM EDT 12/31/2024 11:11 AM EDT Generic External Data Provider LAB BLOOD ORDERAB LES Final Result [facility] [address] [place] [phone] [phone] * (ABNORMAL) PSA, Free and Total (11/23/2024 9:59 AM EDT) PSA, Total 4.5(A) < OR = 4.0 ng/mL [facility] PSA % Free 24(A) >25 % (calc) [facility] Comment: PSA(ng/mL) Free PSA(%) Estimated(x) Probability of Cancer(as%)0-2.5 (*) Approx. 12.6-4.0(1) 0-27(2) 24(3)4.1-10(4) 0-10 56 11-15 28 16-20 20 21-25 16 >or =26 8>10(+) N/A >50References:(1)Jill et al.:Urology 60: 469-474 (2001) (2)Jill et al.:J.Urol 168: 922-925 (2001) Free PSA(%) Sensitivity(%) Specificity(%) < or = 25 85 19 < or = 30 93 9 (3)Catalona et al.:BINA 277: 8069-3797 (1996) (4)Catalona et al.:BINA 279: 3595-6092 (1997)(x)These estimates vary with age, ethnicity, family [...] presence or absence ofdisease.THIS TEST WAS PERFORMED AT:[employer] [place] [phone] MEYERS MD PSA, Free 1.1 ng/mL [facility] 11/23/2024 9:59 AM EDT 11/23/2024 9:59 AM EDT Alyse Parker MD LAB BLOOD ORDERABLES Final Re sult Performing Organization Address [facility] Co de Phone Number [facility] [address] [place] [phone] * TSH W/Reflex to FT4 (11/23/2024 8:34 AM EDT) TSH reflex Free T4 2.39 0.32 - 4.0 uIU/mL [facility] Blood Venous blood specimen / Unknown 11/23/2024 8:34 AM EDT 11/23/2024 8:34 AM EDT Alyse Parker MD LAB BLOOD ORDERABLES Final Re sult Performing Organization Address [facility] de Phone Number [facility] [address] [place] [phone] * (ABNORMAL) PSA, Total With Reflex to PSA, Free (11/23/2024 8:34 AM EDT) PSA,Total (Free>4and<10) 4.26(H) 0.00 - 4.00 ng/mL [facility] Comment:PSA methodology: Abb shantelle Allred i ChemiluminescentMicroparticle Immunoassay (CMIA) 11/23/2024 8:34 AM EDT 11/23/2024 8:34 AM EDT Alyse Parker MD LAB BLOOD ORDERABLES Final Re sult Performing Organization Address [facility] de Phone Number [facility] [address] [place] [phone] * Measles, Mumps, and Rubella (MMR) Antibodies??(IgG) Panel, Immune Status (11/23/2024 8:34 AM EDT) Mumps Virus IgG Antibody 64.40 AU/mL [facility] Comment:AU/mL Interpretation ------- <9.00 Not consistent with immunity9.00-10.99 Equivocal>10.99 Consistent with immunityThe presence of mumps IgG antibody suggests immunizationor past or current infection with mumps virus. Rubella IgG Antibody 1.27 Index [facility] Comment:Index Interpretation ----- <0.90 Not consistent with immunity 0.90-0.99 Equivocal > or = 1.00 Consistent with immunityThe presence of rubella IgG antibody suggestsimmunization or past or current infection withrubella virus.THIS TEST WAS PERFORMED AT:[employer] [place] [id number] MEYERS MD Rubeola IgG (Measles) >300.00 AU/mL [facility] Comment:AU/mL Interpretation ----- <13.50 Not consistent with wtoeeasa96.50-16.49 Equivocal>16.49 Consistent with immunityThe presence of measles IgG suggests immunization orpast or current infection with measles virus.For additional information, please refer tohttp://education.[employer]/faq/GJA495(This link is being provided for informational/educational purposes only.) Blood 11/23/2024 8:34 AM EDT 11/23/2024 8:34 AM EDT us Alyse Parker MD LAB BLOOD ORDERABLES Final Re sult [facility] [address] [place] [address] [phone] * (ABNORMAL) Lipid Panel, Standard (11/23/2024 8:34 AM EDT) Triglycerides 95 <150 mg/dL [facility] Comment:Desirable Triglyceri de: less than 150 mg/dLBorderline High Triglyceride 150-199 mg/dLHigh Triglyceride: 200-499 mg/dLVery High Triglyceride: greater than or equal to 5OO mg/dL Cholesterol 187 <200 mg/dL [facility] Comment:Desirable Cholestero l: less than 200 mg/dLBorderline High Cholesterol: 200-239 mg/dLHigh Cholesterol: greater than 239 mg/dL LDL Cholesterol Calculated 139(H) <100 mg/dL [facility] Comment:Desirable LDL: less than 100 mg/dLNear Optimal/Above Optimal LDL: 110- 129 mg/dLBorderline High LDL: 130-159 mg/dLHigh LDL: 160-189 mg/dLVery High LDL: greater than or equal to 190 mg/dL HDL Cholesterol 29(L) >40 mg/dL [facility] Comment:Desirable HDL: great er than 40 mg/dL Note: This HDL assay may give artificially low results in patients with liver disease. Blood Venous blood specimen / Unknown 11/23/2024 8:34 AM EDT 11/23/2024 8:34 AM EDT us Alyse Parker MD LAB BLOOD ORDERABLES Final Re sult Performing Organization Address [facility] Co de Phone Number [facility] [address] [place] [phone] * Hepatitis C Ab (01/26/2023 9:46 AM EDT) Hepatitis C Antibody Nonreactive Nonreactive [facility] Comment:Antibodies to HCV no t detected; does not exclude early acuteHCV infection. Blood 01/26/2023 9:46 AM EDT 01/26/2023 2:42 PM EDT Alyse Parker MD LAB BLOOD ORDERABLES Final Re sult [facility] [address] [place] [address] [phone] from Last 3 Months or Most Recently Relevant to Health Maintenance Insurance [id number] [employer] OPT[employer] (HMO D-SNP) Care Teams Loan Reviewer Relationship Specialty Start Date End Date Alyse Parker MD [address] [place] [phone] PCP - General Family Medicine 01/17/23
[2025-01-27 11:06] LABS: Troponin-I High Sensitivity < 2.7 ng/L (<3.5-35.0)
[2025-01-27] MEDS: guaiFENesin 200 MG/10 ML 10 ML LIQUID PO (11:40)
[2025-01-27 11:42] VITALS: BP 126/76; PULSE 62; RESP 12; TEMP 36.7; O2SAT 97
[2025-01-27 12:04] VITALS: BP 122/73; PULSE 58; RESP 14; O2SAT 98
[2025-01-27 12:44] LABS: Resp Syncy Virus RNA Qual PCR NEGATIVE (Negative); SARS COV2 PCR INHOUSE NEGATIVE (Negative)
[2025-01-27 13:06] VITALS: BP 122/73; PULSE 58; RESP 14; TEMP 36.7; O2SAT 98
== END 2025-01-27 13:07 | disposition home or self-care (01) ==
PROVIDERS: Emergency Provider Emergency Medicine; PCP Family Medicine
DX: J18.8 Other pneumonia, unspecified organism (principal); R05.9 Cough, unspecified; R42 Dizziness and giddiness
CPT/HCPCS: 71046; 80053; 84484; 85025; 87637; 93005; 99283; 99285; J8540

== ENCOUNTER → 2025-01-27 10:12 | Outpatient (BNV) | payer OTHER, SELFPAY | PROVIDERS: Emergency Provider Emergency Medicine; PCP Family Medicine; Visit Provider Internal Medicine Cardiovascular Disease | DX: I25.2 Old myocardial infarction (principal) | CPT/HCPCS: 93010 ==

== ENCOUNTER → 2025-01-27 11:10 | Outpatient (BNV) | payer OTHER, SELFPAY | PROVIDERS: Emergency Provider Emergency Medicine; PCP Family Medicine; Visit Provider Radiology Diagnostic Radiology | DX: R91.8 Other nonspecific abnormal finding of lung field (principal) | CPT/HCPCS: 71046 ==

== ENCOUNTER 2025-02-07 10:47 | Outpatient (REF) | payer OTHER, SELFPAY ==
--- NOTE | ~2025-02-07 | XR_ITS ---
EXAMINATION: XR CHEST CLINICAL INFORMATION: Pneumonia right perihilar COMPARISON: 01/27/2025 TECHNIQUE: 2 views of the chest were obtained. FINDINGS: Wires from median sternotomy are again noted. There are clips projecting over the left heart margin and near the aortic knob. Heart size is normal. Lungs are clear. There is no pleural effusion. XR/XR chest 2V IMPRESSION: No acute disease Electronically signed by: Saud Humphrey MD 02/07/2025 12:04 PM EDT
== END 2025-02-07 10:48 | disposition home or self-care (01) ==
LOC: HO.XRAY 10:47
PROVIDERS: Absent Provider Internal Medicine; PCP Family Medicine; Visit Provider Urology
DX: N40.1 Benign prostatic hyperplasia with lower urinary tract symptoms (principal); N13.8 Other obstructive and reflux uropathy; J18.9 Pneumonia, unspecified organism; Z13.89 Encounter for screening for other disorder; Z80.42 Family history of malignant neoplasm of prostate
CPT/HCPCS: 51798; 71046; 81003; 99202

== ENCOUNTER 2025-02-07 10:47 | Outpatient (AMB) | payer MEDICARE, SELFPAY ==
--- NOTE | 2025-02-07 10:59 | MHC.OFFVIS ---
Intake Visit Reasons: elevated PSA Intake Note: New patient presents today for initial visit for elevated PSA 11/23 Total PSA:4.26 Urology Medication:Tadalafil Blood Thinner:None Antibiotic Allergies:None PVR:0ml Director Hris Required: Yes Director Hris Name: [email or web address] [id number] Allergies No Known Allergies (No Known Allergies*) Allergy (Verified 01/27/25 10:07) HPI Comments Details: History of Present Illness The patient is a 69-year-old male presenting with elevated Prostate-Specific Antigen (PSA) levels. The PSA was measured at 4.26 on November 23, 2024, which is above the normal range of 0 to 4. A previous PSA measurement in 2023 was 3.26, indicating a rising trend. Family History of prostate cancer, father, age 93. The patient reports occasional nocturia, having to get up twice at night to urinate, but denies any significant straining during urination. The discussion included the possibility of benign prostatic hyperplasia (BPH) as the prostate enlarges with age, potentially affecting urinary flow. Results - Labs: PSA level of 4.26 on 11/23/2024 - Labs: PSA level of 3.26 on 08/15/2023 Plan 1. Elevated Prostate-Specific Antigen (Psa) - Plan to perform an ultrasound to evaluate the kidneys, bladder, and prostate size. - Initiate finasteride therapy to reduce prostate size and potentially lower PSA levels. - Schedule a follow-up appointment in four months with repeat PSA testing. - Plan for a prostate biopsy to assess for potential malignancy. [facility] Medical History Hyperlipidemia H/O urinary retention HTN (hypertension) Colitis Decrease in appetite Coronary artery disease involving coronary bypass graft of [place] heart Peripheral tear of medial meniscus of left knee Left knee pain Surgical History History of colonoscopy (~2018) S/P CABG x 3 (~2017) History of cardiac catheterization (~2006) Family History Father No problems noted. Mother No problems noted. Social History Alcohol intake: current Alcohol intake frequency: does not drink Patient Tobacco Use Status: Never used Tobacco Review of Systems Const All systems reviewed & are unremarkable except as noted in HPI and below Reports no additional complaints Eyes Reports no additional complaints ENT Reports no additional complaints Card Reports no additional complaints Resp Reports no additional complaints GI Reports no additional complaints Reports as per HPI Musc Reports no additional complaints Skin/Breast Reports system reviewed and no additional complaints, except as documented Neuro Reports no additional complaints Psych Reports no additional complaints Endo Reports no additional complaints Elias/Lymph Reports no additional complaints Aller/Immun Reports no additional complaints Physical Exam Const General: healthy appearing, no acute distress and well developed Orientation/consciousness: patient oriented x3 HEENT Head: Yes normocephalic and Yes atraumatic Eyes Conjunctivae: conjunctivae normal Neck Neck: Yes normal visual inspection Chest Chest palpation & inspection: normal inspection of the chest Resp Effort & Inspection: normal respiratory effort GI Inspection: Yes normal to inspection Neuro General: patient oriented x3 Psych Appearance: grossly normal Affect: normal affect Office Procedures Post Void Residual Post Residual Void Post Void Residual (PVR): 0 [id number] Void Residual by ultrasound Assessment & Plan Assessment & Plan (1) BPH with elevated PSA: Code(s): N40.0 - Benign prostatic hyperplasia without lower urinary tract symptoms; R97.20 - Elevated prostate specific antigen [PSA] Category: Medical (2) Family history of prostate cancer: Code(s): Z80.42 - Family history of malignant neoplasm of prostate Category: Medical Plan Plan 1. Elevated Prostate-Specific Antigen (Psa) - Plan to perform an ultrasound to evaluate the kidneys, bladder, and prostate size. - Initiate finasteride therapy to reduce prostate size and potentially lower PSA levels. - Schedule a follow-up appointment in four months with repeat PSA testing. - Plan for a prostate biopsy to assess for potential malignancy. Orders: Orders AMB Urinalysis Automated Today Z13.9 - Encounter for screening, unspecified AMB Post Void Residual by ultrasound Today N13.8 - Other obstructive and reflux uropathy, N40.1 - Benign prostatic hyperplasia with lower urinary tract symptoms US retroperitoneal comp 2 Months N40.0 - Benign prostatic hyperplasia without lower urinary tract symptoms, R97.20 - Elevated prostate specific antigen [PSA] PSA,Total (Free>4and<10) Today N40.0 - Benign prostatic hyperplasia without lower urinary tract symptoms, R97.20 - Elevated prostate specific antigen [PSA] Medications: New finasteride (Proscar) 5 mg PO DAILY 90 tabs 3RF N40.0 - Benign prostatic hyperplasia without lower urinary tract symptoms, R97.20 - Elevated prostate specific antigen [PSA] Patient Instructions: The patient had an opportunity to ask questions regarding treatment plan. The patient expressed understanding and agreement with the above treatment plan. The patient is aware they should contact our office by phone for worsening of their current condition or the appearance of new symptoms. Compliance is encouraged with any medications and followup testing that is ordered. It is a privilege to be allowed the opportunity to participate in the urologic care of your patient. If you have any questions or concerns regarding treatment for the above conditions please do not hesitate to contact me. The office telephone contact is [phone]. This note is constructed in part using voice recognition software. While every effort has been made to ensure accuracy elevators inspector errors may have been included. Yours sincerely, Jonathan Muniz MD Scribe Plan - Not visible on output: Patient was informed and verbally consented to the use of an ambient scribe for clinic note documentation during this visit. Coding Level of Care Code New Pt Level 4 (40171) Diagnoses BPH with elevated PSA N40.0; R97.20 Family history of prostate cancer Z80.42 CPT Codes Post Residual Void - PVR CPT Code: 36922-Xecs Void Residual by ultrasound ([id number])
== END 2025-02-07 11:33 | disposition home or self-care (01) ==
LOC: HO.HUSH 10:47
PROVIDERS: PCP Family Medicine; Visit Provider Urology
DX: N40.0 Benign prostatic hyperplasia without lower urinary tract symptoms (principal); R97.20 Elevated prostate specific antigen [PSA]; Z80.42 Family history of malignant neoplasm of prostate; Z13.9 Encounter for screening, unspecified
CPT/HCPCS: 99204

== ENCOUNTER → 2025-02-07 11:39 | Outpatient (BNV) | payer OTHER, SELFPAY | PROVIDERS: Absent Provider Internal Medicine; PCP Family Medicine; Visit Provider Radiology Diagnostic Radiology | DX: J18.9 Pneumonia, unspecified organism (principal) | CPT/HCPCS: 71046 ==

== ENCOUNTER 2025-03-06 10:22 | Outpatient (AMB) | payer OTHER, SELFPAY ==
--- NOTE | 2025-03-06 10:23 | MHC.OFFVIS ---
Vital Signs 03/06/25 10:34 Height 5 ft 5 in Weight 150 lb BMI 25.0 BP 140/92 H Blood Pressure Location Rt brachial Position Sitting Pulse 64 Pulse Source Pulse Oximeter Pulse Oximetry (%) 99 Oxygen Delivery Method Room Air Intake Visit Reasons: [place] screening Intake Note: New pt for recall colo screening CC; Pt denies any GI sx or concerns at this time. He states that he has very occasional acid reflux depending on his diet. He typically only will treat with OTC meds (ie TUMS). Last colo 2019 per his chart. He is currently on abx for preparation prior to a urology biopsy with Dr. Mcclure tomorrow. Wildlife Biostation Research Ecologist Required: Yes Wildlife Biostation Research Ecologist Services: Wildlife Biostation Research Ecologist Offered & Declined Accompanied by: Self / Same As Patient Allergies No Known Allergies (No Known Allergies*) Allergy (Verified 03/22/25 13:08) HPI HPI [place] screening: Details: 69 year old? male with past medical history of CAD, hypertension, hyperlipidemia, coronary bypass is here today for pre colonoscopy screening.? Patient was sent to us by his PCP.? Last colonoscopy in 2018.? Patient denies any gastrointestinal symptoms in the past or at present.? However he does admits that occasionally he will have acid reflux and will take Tums with good results. It happens about once a week or so. Denies any personal or family history of gastrointestinal disease, colon polyps, or CRC.? Denies history of difficulty with sedation or anesthesia in the past.? Negative for history of sleep apnea.? Denies any history of renal, pulmonary, or hepatic disease.?? No history of infectious? diseases like hepatitis A, B, C, HIV or tuberculosis.? Patient is on Plavix. Patient was seen by Cardiology, however the office is moving to [place] and he would like to stay in [place]. Will send him to our manager hardware at [facility] Medical History Hyperlipidemia H/O urinary retention HTN (hypertension) Colitis Decrease in appetite Coronary artery disease involving coronary bypass graft of [place] heart Peripheral tear of medial meniscus of left knee Left knee pain Surgical History History of colonoscopy (~2018) S/P CABG x 3 (~2017) History of cardiac catheterization (~2006) Family History Father No problems noted. Mother No problems noted. Social History Alcohol intake: current Alcohol intake frequency: does not drink Patient Tobacco Use Status: Never used Tobacco Review of Systems Const Denies weight gain and Denies weight loss ENT Reports no additional complaints, Denies dysphagia and Denies odynophagia Card Reports no additional complaints Resp Reports no additional complaints GI Denies abdominal pain, Denies belching, Denies melena, Denies bloating, Denies change in bowel habits, Denies dysphagia, Denies excessive flatus, Denies dyspepsia, Reports heartburn (Occasional), Denies diarrhea, Denies loose stools, Denies nausea, Denies odynophagia and Denies vomiting Reports no additional complaints Musc Reports no additional complaints Neuro Reports no additional complaints Psych Reports no additional complaints Endo Reports no additional complaints Physical Exam Vital Signs: Last Vital Signs Pulse 64 03/06/25 10:34 BP 140/92 H 03/06/25 10:34 Pulse Ox 99 03/06/25 10:34 Oxygen Delivery Method Room Air 03/06/25 10:34 BMI result Body Mass Index 25.0 Const General: healthy appearing, no acute distress and well developed Nutritional Appearance: well nourished Orientation/consciousness: patient oriented x3 Resp Effort & Inspection: normal respiratory effort, able to speak in complete sentences, no tracheal deviation and symmetric chest movement Auscultation: clear to auscultation bilaterally Cardio Rate: regular rate GI Inspection: Yes normal to inspection and No distended Palpation (GI): Soft to palpation, not firm, nontender and No hepatosplenomegaly present Auscultation: normal bowel sounds General: Yes no CVA tenderness Back/Spine/Pelvis Back: no CVA tenderness Skin General skin exam: elasticity normal, turgor normal and dry skin Neuro General: patient oriented x3 Psych Appearance: grossly normal Mental Status: mental status grossly normal Assessment & Plan Assessment & Plan (1) Screen for colon cancer: Code(s): Z12.11 - Encounter for screening for malignant neoplasm of colon Plan Patient denies any GI, cardiac or respiratory symptoms.? Reports occasional acid reflux take Tums with affect. Denies any issues with anesthesia in the past.? Denies any history of sleep apnea.? No history infectious diseases in the past or present.? Patient is on Plavix, history of coronary bypass. He had a visit with his manager hardware 6 months ago, however patient reports that his manager hardware's office is moving to [place] and he would like to stay in [place]. Will send a referral to cardiology group here at [facility] for clearance. Patient denies any cardiac or respiratory symptoms.? No family history of colon cancer.? Patient denies melena, hematochezia, unintentional weight loss or ribbon like stools.? Discussed at length the pre-procedure,? prep, diet & medications as well as what to expect prior, during and after the procedure.?? Stressed the importance of good bowel prep.? Recommended the use of Vaseline or Calmoseptine OTC & baby wipes with bowel movements to promote comfort.? ?Patient verbalizes understanding and agrees to plan of care.? He was given the opportunity to ask questions and all questions answered.? We will see him after the procedure.? Orders: Referrals GI Procedure Notification Z12.11 - Encounter for screening for malignant neoplasm of colon Cardiology Referral Z01.810 - Encounter for preprocedural cardiovascular examination Medications: New bisacodyl (Dulcolax (bisacodyl)) take 4 tabs at noon the day before your colonoscopy 20 mg (4 x 5 mg) PO ONCE 4 tabs 0RF constipation 1 day Z12.11 - Encounter for screening for malignant neoplasm of colon polyethylene glycol 3350 (Miralax) As directed by gastroenterology department at [facility] 238 grams PO ONCE 238 grams 0RF Z12.11 - Encounter for screening for malignant neoplasm of colon Coding Level of Care Code New Pt Level 3 (70948) Diagnoses Screen for colon cancer Z12.11 Time Spent (min) 40 Comment 30 minutes spent with patient and additional 10 minutes spent reviewing his records
[2025-03-06 10:34] VITALS: BP 140/92; PULSE 64; O2SAT 99; BMI 25.0
--- OUTSIDE RECORDS SUMMARY | 2025-03-06 12:05 | XMS_ITS | Encounter Summary ---
Author Organization [employer] Address [address] [facility] [address] [place] [address] Care Team Providers Care Sausage Mixer Name Role Phone Alyse Parker MD Primary Care Provider [phone] Encounter Details Date Type Department Care Team (Late Contact Info) Description 12/03/2022 Telephone [facility] [address] [place], [place] [phone] Alyse Parker MD [address] [place], [place] [phone] Social History Tobacco Use Types Packs/Day Years [...] Department Care Team (Late Contact Info) Description 04/16/2025 10:15 AM EST Office Visit [facility] [address] [place] [address] Phil Waters MD [address] [place] [address] documented as of this encounter Visit Diagnoses Not on filedocumented in this encounter Care Teams Sausage Mixer Relationship Specialty Start Date End Date Alyse Parker MD [address] [place] [phone] PCP - General Family Medicine 01/17/23 documented as of this encounter
--- OUTSIDE RECORDS SUMMARY | 2025-03-06 12:05 | XMS_ITS | Encounter Summary ---
Author Organization [employer] Address [address] [facility] [address] [place] [address] Care Team Providers Care [employer] Principal Name Role Phone Alyse Parker MD Primary Care Provider [phone] Reason for Visit * Reason Onset Date Comments Referral 02/22/2025 Encounter Details Date Type Department Care Team ([facility] st Contact Info) Description 02/22/2025 Telephone [facility] [address] [place], [place] [phone] Alyse Parker MD [address] [place], [place] [phone] Referral Social History Tobacco Use Types Packs/Day Years [...] encounter Miscellaneous Notes * Telephone Encounter - Siobhan Fallon - 02/26/2025 11:41 AM EDT Tc from pt requesting a call back regarding prior message Contact pt at [phone] (thai) * Telephone Encounter - Dominick Mariee - 02/22/2025 2:34 PM EDT Tc from pt requesting a referral for master hearth technician at the [facility]. Any questions contact pt at [phone] documented in this encounter Plan of Treatment Upcoming Encounters Date Type Department Care Team (Late st Contact Info) Description 04/16/2025 10:15 AM EST Office Visit [facility] [address] [place] [address] Phil Waters MD [address] [place] [address] documented as of this encounter Visit Diagnoses Not on filedocumented in this encounter Additional Health Concerns Assessment Noted Time PHQ-9 Depression Total Score: 3 02/02/20 11:22 AM EDT documented as of this encounter Care Teams [employer] Principal Relationship Specialty Start Date End Date Alyse Parker MD [address] [place] [address] PCP - General Family Medicine 01/17/23 documented as of this encounter
--- OUTSIDE RECORDS SUMMARY | 2025-03-06 12:05 | XMS_ITS | Clinical Summary ---
Author Organization [employer] Address [address] [facility] [address] [place] [address] Care Team Providers Care Guest Relations Receptionist Name Role Phone Alyse Parker MD Primary Care Provider [phone] Allergies No known active allergies Medications tadalafil (Cialis) 5 MG tablet TAKE ONE TABLET BY MOUTH EVERY DAY NEEDED FOR SEXUAL ACTIVITY 3 Active rosuvastatin (Crestor) 40 MG tablet TOME JOELLEN TABLETA TODOS LOS D 3 Active metoprolol tartrate (Lopressor) 25 MG tablet TOME JOELLEN TABLETA DOS VECES AL D A 3 Active clopidogrel (Plavix) 75 MG tablet TOME JOELLEN TABLETA TODOS LOS D 3 Active clonazePAM (KlonoPIN) 0.5 MG tablet TOME JOELLEN TABLETA TODOS LOS D EN LA MA JESSIE CUANDO SEA NECESARIO 3 Active clonazePAM (KlonoPIN) 1 MG tablet Take 1 mg by mouth at bedtime. Active baclofen (Lioresal) 5 MG tablet TOME JOELLEN TABLETA POR V A ORAL AL ACOSTARSE PARA EL ESPASMO MUSCULAR CUANDO SEA NECESARIO 4 Active ProAir RespiClick 108 (90 Base) MCG/ACT aerosol powder TOME DOS INHALACIONES POR V A ORAL CADA CUATRO A SEIS HORAS CUANDO SEA NECESARIO 4 Active metoprolol succinate XL (Toprol-XL) 25 MG 24 hr tablet TOME 1 TABLETA POR V A ORAL DOS VECES AL D A FOR 30 DAYS 4 Active cetirizine (ZyrTEC) 10 MG tablet TAKE 1 TABLET BY MOUTH EVERY DAY 90 tablet 2 05/08/202 5 Active citalopram (CeleXA) 10 MG tablet TOME 1 TABLETA POR V A ORAL TODOS LOS D 5 Active traZODone (Desyrel) 50 MG tablet TOME 1 TABLETA POR V A ORAL TODOS LOS D AL ACOSTARSE Active Azelastine HCl 137 MCG/SPRAY solution ADMINISTER 1 SPRAY INTO EACH NOSTRIL 2 TIMES DAILY. USE IN EACH NOSTRIL DIRECTED 30 mL 2 5 Active Active Problems Patient Care Coordination No te [...] Encounters Date Type Department Care Team Description 02/25/2025 Telephone [facility] [address] [place] [address] Alyse Parker MD 02/22/2025 Telephone [facility] [address] [place] [address] Alyse Parker MD Referral 02/19/2025 10:45 AM EDT Office Visit [facility] [address] [place] [address] Phil Waters MD Trichofolliculoma (Primary Dx) 02/19/2025 Travel 02/11/[address] [address] Alyse Parker MD 01/31/2025 3:30 PM EDT Office Visit [facility] [address] [place] [address] Phil Waters MD Pneumonia of right middle lobe due to infectious organism (Primary Dx) 01/31/2025 Travel 01/31/2025 Telephone [facility] [address] [place] [address] Alyse Parker MD Nurse Triage 01/27/2025 Orders Only GENERIC EXTERNAL DATA DEPARTMENT Provider, Generic External Data 01/17/2025 Refill [facility] [address] [place] [address] Alyse Parker MD 01/15/2025 9:30 AM EDT Office Visit [facility] [address] [place] [address] Phil Waters MD Trichofolliculoma (Primary Dx) 01/15/2025 Travel 01/08/2025 3:20 PM EDT Office Visit [facility] [address] [address] Krissy Abraham MD Viral upper respiratory tract infection 01/08/2025 Travel 01/01/2025 Telephone [facility] [address] [place] [address] Alyse Parker MD ER Follow-up 12/31/2024 Orders Only [facility] External Provider, [facility] 12/04/2024 10:20 AM EDT [facility] [address] [address] Marina Huntley MD Viral upper respiratory tract infection 12/04/2024 Travel 12/04/2024 Telephone [facility] [address] [place] [address] Alyse Parker MD Nurse Triage from Last 3 Months Immunizations Immunization Administration [...] Sign Reading Time Taken Comments Blood Pressure 131/83 02/19/2025 10:47 AM EDT Pulse 61 02/19/2025 10:47 AM EDT Temperature 36.5 C (97.7 F) 01/15/2025 9:34 AM EDT Respiratory Rate 20 02/19/2025 10:47 AM EDT Oxygen Saturation 99% 02/19/2025 10:47 AM EDT Inhaled Oxygen Concentration - - Weight 69.9 kg (154 lb) 02/19/2025 10:47 AM EDT Height 167.6 cm (5' 6 ) 02/19/2025 10:47 AM EDT Body Mass Index 24.86 02/19/2025 10:47 AM EDT Plan of Treatment Upcoming Encounters Date Type Department Care Team ([facility] st Contact Info) Description 04/16/2025 10:15 AM EST Office Visit [facility] PEDS [address] [place] [address] Phil Waters MD [address] [place] [address] Health Maintenance Due Date Last Done Comments [...] 24 SDOH Screening 10/17/2025 10/17/2024 Tobacco Screening 02/19/2026 02/19/2025 Lipid Panel 11/23/2029 11/23/2024, 0910/2022, 02/06/2020 DTaP/Tdap/Td [...] Associated Diagnosis Comments CRYOTHERAPY SKIN LESION Routine 02/19/2025 11:11 AM EDT Trichofolliculoma XR CHEST 2 VIEWS Routine 02/07/2025 11:5 8 AM EDT Pneumonia of right middle lobe due to infectious organism XR CHEST 2 VIEWS Routine 01/27/2025 12:0 7 PM EDT SARS COV2/INFLUENZA A/B AND RSV RNA QL NAAT Routine 01/27/2025 11:56 AM EDT HIGH SENSITIVITY TROPONIN I Routine 01/27/2025 10:21 AM EDT COMPREHENSIVE METABOLIC PANEL Routine 01/27/2025 10:21 AM EDT CBC WITH AUTO DIFFERENTIAL Routine 01/27/2025 10:21 AM EDT CRYOTHERAPY SKIN LESION Routine 01/15/2025 10:01 PM [...] AM EDT Viral upper respiratory tract infection LIPID PANEL, STANDARD Routine 11/23/2024 8:34 AM EDT Hypertension, unspecified type HEPATITIS C ANTIBODY Routine 01/26/2023 9:46 AM EDT Encounter for health-related screening from Last 3 Months or Most Recently Relevant to Health Maintenance Results * Cryotherapy, skin lesion (02/19/2025 11:11 AM EDT) Phil Parish MD - 02/19/2025 11:11 AM EDT Phil Waters MD 02/19/2025 11:13 AM Cryotherapy, skin lesion Date/Time: 02/19/2025 11:11 AM Performed by: Phil Waters MD Authorized by: Phil Waters MD Confirmed correct patient, procedure, site, and patient consented: Yes Consent: Consent obtained: Verbal and written Consent given by: Patient Procedure risks and benefits discussed: Yes Patient questions answered: No Patient agrees, verbalizes understanding, and wants to proceed: No Educational handouts given: No Instructions and paperwork completed: Yes [facility] protocol: Procedure explained and questions answered to patient or proxy's satisfaction: yes Relevant documents present and verified: no Test results available: no Imaging studies available: no Required blood products, implants, devices, and special equipment available: no Site/side marked: no Immediately prior to procedure, a time out was called: yes Patient identity confirmed: Verbally with patient Indications: Indications: Itchy trichotilloma Sedation: Sedation type: None Anesthesia: Anesthesia method: None Procedure specific details: Cryotherapy as per protocol. Post-procedure details: Procedure completion: Tolerated well, no immediate complications us Phil Waters MD DERM PROCEDURE ORDERABLES F inal Result * XR Chest 2 Views (02/07/2025 11:58 AM EDT) Only the most recent of2 resultswithin the time period is included. Anatomical Region Laterality Modality Chest Radiographic Mary ging 02/07/2025 11:5 8 AM EDT Narrative 02/07/2025 12:07 PM EDT [address] [address] XRay Report Signed Patient: David Matias MR#: [id number] : 1955 Acct:[id number] Age/Sex: 69 / M ADM Date: 02/07/25 Loc: HO.XRAY Attending Dr: Jonathan Muniz MD Ordering Physician: Phil Waters MD Date of Service: 02/07/25 Procedure(s): XR chest 2V Accession Number(s): [id number] cc: Phil Waters MD; Alyse Parker MD Reason for Exam: Pneumonia right perihilar EXAMINATION: XR CHEST CLINICAL INFORMATION: Pneumonia right perihilar COMPARISON: 01/27/2025 TECHNIQUE: 2 views of the chest were obtained. FINDINGS: Wires from median sternotomy are again noted. There are clips projecting over the left heart margin and near the aortic knob. Heart size is normal. Lungs are clear. There is no pleural effusion. XR/XR chest 2V IMPRESSION: No acute disease Electronically signed by: Saud Humphrey MD 02/07/2025 12:04 PM EDT Dictated By: Saud Humphrey MD Signed By: <Electronically signed by Saud Humphrey MD in OV> 02/07/25 1204 DD/ 1158 TD/TT: 02/07/25 1158 Trauma Doctor: Procedure Note Donotuseinterpreter, Image - 02/07/[address] [address] XRay Report Signed Patient: David MatiasMR#: [id number] : 1955cct:[id number] Age/Sex: 69 / MADM Date: 02/07/25 Loc: HO.XRAY Attending Dr: Jonathan Muniz MD Ordering Physician: Phil Waters MD Date of Service: 02/07/25 Procedure(s): XR chest 2V Accession Number(s): [id number] cc: Phil Waters MD; Alyse Parker MD Reason for Exam: Pneumonia right perihilar EXAMINATION: XR CHEST CLINICAL INFORMATION: Pneumonia right perihilar COMPARISON: 01/27/2025 TECHNIQUE: 2 views of the chest were obtained. FINDINGS: Wires from median sternotomy are again noted. There are clips projecting over the left heart margin and near the aortic knob. Heart size is normal. Lungs are clear. There is no pleural effusion. XR/XR chest 2V IMPRESSION: No acute disease Electronically signed by: Saud Humphrey MD 02/07/2025 12:04 PM EDT RP Dictated By: Saud Humphrey MD Signed By: <Electronically signed by Saud Humphrey MD in OV> 02/07/25 1204 DD/ 1158 TD/TT: 02/07/25 1158 Trauma Doctor: Phil Waters MD IMG XR PROCEDURES Final Res ult * SARS-CoV-2 RNA, Influenza A/B, and RSV RNA, Ql NAAT (01/27/2025 11:56 AM EDT) Influenza A PCR NEGATIVE Negative [facility] Influenza B PCR NEGATIVE Negative [facility] Resp Syncy Virus RNA Qual PCR NEGATIVE Negative [facility] SARS COV2 PCR NEGATIVE Negative [facility] Comment:All test results mus t be correlated with clinical findings.Negative results do not preclude SARS-CoV2, influenza Avirus, influenza B virus and/or RSV infectionand should not be used as the sole basis for treatment orother patient management decisions. Negative results must becombined with clinical observations, patient history, andepidemiological information.This test has not been evaluated for monitoring treatment ofinfection.This test has been authorized by the FDA under an EmergencyUse Authorization (EUA) for use by authorized laboratories.Testing performed on the [employer] GeneXpert utilizingreal-time RT-PCR.All SARS CoV2 and positive influenza A/B results arereported to [facility]. 01/27/2025 11:5 6 AM EDT 01/27/2025 12:06 PM EDT Generic External Data Provider LAB MICROBIOLOGY - GENERAL ORDERABLES Final Result Performing Organization Address [facility] de Phone Number [facility] [address] [place] [phone] * High Sensitivity Troponin I (01/27/2025 10:21 AM EDT) Only the most recent of2 resultswithin the time period is included. [facility] TROPONIN I HIGH SENSITIVITY <2.7 <3.5 - 35.0 ng/L [facility] Comment:The Gutierrez high sens itivity Troponin-I results should beused in conjunction with other diagnostic information suchas ECG, clinical observations and information, and patientsymptoms to aid in the diagnosis of PR. 01/27/2025 10:2 1 AM EDT 01/27/2025 10:26 AM EDT Generic External Data Provider LAB BLOOD ORDERAB LES Final Result Performing Organization Address [facility] de Phone Number [facility] [address] [place] [phone] * (ABNORMAL) CBC auto differential (01/27/2025 10:21 AM EDT) Only the most recent of2 resultswithin the time period is included. White Blood Count 5.4 4.8 - 10.8 X10*3/uL [facility] Red Blood Count 4.95 4.60 - 5.80 X10*6/uL [facility] Hemoglobin 15.7 14.0 - 18.0 g/dl [facility] Hematocrit 43.9 42.0 - 52.0 % [facility] Mean Corpuscular Volume 88.7 80.0 - 98.0 fL [facility] Mean Corpuscular Hemoglobin 31.7 27.0 - 33.0 pg [facility] Mean Corpuscular HGB Conc 35.8 31.0 - 36.0 g/dl [facility] Red Cell Distribution Width 13.3 11.0 - 16.0 % [facility] Platelet Count 178 160 - 400 X10*3/uL [facility] Mean Platelet Volume 10.0 9.4 - 12.4 fL [facility] Neutrophils Percent Auto 47.2 45 - 73 % [facility] Imm Gran Pct Auto 0.6(H) 0.0 - 0.4 % [facility] Lymphocytes Percent Auto 36.4 20 - 40 % [facility] Monocytes Percent Auto 10.8 2 - 11 % [facility] Eosinophils Percent Auto 4.1(H) 0 - 4 % [facility] Basophils Percent Auto 0.9 0 - 2 % [facility] NRBC Pct Auto 0.0 0.0 - 0.2 /100WBC [facility] Neutrophils Absolute Auto 2.5 2.0 - 8.3 x10*3/uL [facility] Imm Gran Abs Auto 0.03 0.00 - 0.03 X10*3/uL [facility] Lymphocytes Absolute Auto 2.0 1.2 - 4.9 X10*3/uL [facility] Monocytes Absolute Auto 0.6 0.1 - 1.2 X10*3/uL [facility] Eosinophils Absolute Auto 0.2 0.0 - 0.4 X10*3/uL [facility] Basophils Absolute Auto 0.1 0.0 - 0.2 X10*3/uL [facility] NRBC Abs Auto 0.000 0.0 - 0.012 X10*3/uL [facility] 01/27/2025 10:2 1 AM EDT 01/27/2025 10:26 AM EDT us Generic External Data Provider LAB BLOOD ORDERAB LES Final Result [facility] [address] [place] [phone] * (ABNORMAL) Comprehensive Metabolic Panel (01/27/2025 10:21 AM EDT) Only the most recent of2 resultswithin the time period is included. Sodium 137 135 - 145 mmol/L [facility] Potassium 4.0 3.3 - 5.1 mmol/L [facility] Chloride 107 96 - 108 mmol/L [facility] Carbon Dioxide 24 22 - 29 mmol/L [facility] Anion Gap 10(L) 12 - 20 [facility] Urea Nitrogen (BUN) 13 9 - 16 mg/dL [facility] Creatinine, Serum 0.80 0.5 - 1.4 mg/dL [facility] Creatinine Clr Calc Pharmacy 73.6 [facility] Comment:eGFR (calculated fro m the MDRD study equation) and eCrCl(calculated from the Cockcroft-Gault equation) are based ondifferent parameters and may not yield comparable results.If eCrCl result is absurd, please check patient'sheight/weight. Estimated Glomerular Filt Rate >60 [facility] Comment:Chronic Kidney Disea se: Estimated GFR < 60 mL/min/1.65s9Nwlumr Kidney Disease: Estimated GFR < 15 mL/min/1.73m2 Glucose 190(H) 60 - 115 mg/dL [facility] Calcium 8.8 8.4 - 10.2 mg/dL [facility] Bilirubin, Total 0.8 0.0 - 1.0 mg/dL [facility] Aspartate Amino Transferase 23 5 - 37 U/L [facility] Alanine Aminotransferase 13 0 - 40 U/L [facility] Total Protein 7.5 6.5 - 8.0 g/dL [facility] Albumin Level 4.0 3.5 - 5.0 g/dL [facility] Alkaline Phosphatase 69 39 - 117 U/L [facility] 01/27/2025 10:2 1 AM EDT 01/27/2025 10:26 AM EDT us Generic External Data Provider LAB BLOOD ORDERAB LES Final Result [facility] [address] [place] [phone] * Cryotherapy, skin lesion (01/15/2025 10:01 PM EDT) Narrative Phil Waters MD - 01/15/2025 10:01 PM EDT Phil [...] given: No Instructions and paperwork completed: Yes [facility] protocol: Procedure explained and questions answered to [...] is included. Influenza B Negative Negative, Indeterminate [facility] Swab 01/08/2025 2:59 PM EDT us Krissy Brambila MD POINT OF CARE TEST EN TER/EDIT ORDERABLES Final Result Performing Organization Address [facility]/ZIP Co de Phone Number [facility] [address] [place] [phone] * Influenza A (ID NOW Rapid Molecular) (01/08/2025 2:59 PM EDT) Only the most recent of2 resultswithin the time period is included. Influenza A Negative Negative, Indeterminate [facility] Swab 01/08/2025 2:59 PM EDT Krissy Brambila MD POINT OF CARE TEST EN TER/EDIT ORDERABLES Final Result Performing Organization Address [facility] Co de Phone Number [facility] [address] [place] [phone] * POCT Rapid COVID Ag (01/08/2025 2:59 PM EDT) Only the most recent of2 resultswithin the time period is included. Rapid COVID Ag Negative [facility] Swab 01/08/2025 2:59 PM EDT us Krissy Brambila MD POINT OF CARE TEST EN TER/EDIT ORDERABLES Final Result Performing Organization Address [facility] Co de Phone Number [facility] [address] [place] [phone] * XR Chest 1 View (12/31/2024 1:32 PM EDT) Anatomical Region Laterality Modality Chest Radiographic Mary ging 12/31/2024 1:32 PM EDT Narrative 12/31/2024 1:34 PM EDT [address] [address] XRay Report Signed Patient: David Matias MR#: [id number] : 1955 Acct:[id number] Age/Sex: 69 / M ADM Date: 12/31/24 Loc: HO.ED Attending Dr: Ordering Physician: Neftaly Monreal Date of Service: 12/31/24 Procedure(s): XR chest 1V Accession Number(s): [id number] cc: Neftaly Monreal; Alyse Parker MD CLINICAL [...] 12/31/24 1333 DD/ 1332 TD/TT: 12/31/24 1332 Trauma Doctor: Procedure Note Donotuseinterpreter, Image - 12/31/2024 [place] [address] XRay Report Signed Patient: Kelsey Matias#: [id number] : 4Acct:[id number] Age/Sex: 69 / MADM Date: 12/31/24 Loc: .ED Attending Dr: Ordering Physician: Neftaly Monreal Date of Service: 12/31/24 Procedure(s): XR chest 1V Accession Number(s): [id number] cc: Neftaly Monreal; Alyse Parker MD CLINICAL [...] Washington DO Signed By: <Electronically signed by oRosevelt Washington DO in OV> 12/31/24 1333 DD/ 1332 TD/TT: 12/31/24 1332 Trauma Doctor: [facility] External Provider IMG XR PROCEDURES Edited Result - Final * COVID-19 ID NOW (GUTIERREZ) (12/31/2024 11:06 AM EDT) IDNOW SERIAL# [id number] [facility] COVID-19 TEST Negative Negative [facility] COVID-19 NOTE See Note [facility] Comment: Results are for the identification of SARS-CoV2 RNA. TheSARS-CoV2 RNA is generally detectable in respiratory samplesduring the acute phase of infection. Positive results areindicative of the presence of SARS-CoV-2 RNA; clinicalcorrelation with patient history and other diagnosticinformation is necessary to determine patient infectionstatus. Positive results do not rule out bacterial infectionor co- infection with other viruses.Testing facilities within the [facility] and [facility] are required to report all positive results [...] use by authorized laboratories.Testing performed on the Gutierrez ID NOW utilizing NAAT. 12/31/2024 11:0 6 AM EDT 12/31/2024 11:11 AM EDT Generic External Data Provider LAB MOLECULAR SERGIO GNOSTICS ORDERABLES Final Result [facility] [address] [place] [phone] * Influenza A B2 ID NOW (Gutierrez) (12/31/2024 11:05 AM EDT) IDNOW SERIAL# [id number] [facility] Influenza A Negative Negative [facility] Influenza B2 Negative Negative [facility] Influenza A B2 Note See Note [facility] Comment:The Gutierrez ID NOW In fluenza [...] GENERAL ORDERABLES Final Result Performing Organization Address [facility]/ZIP Co de Phone Number [facility] [address] [place] [phone] * (ABNORMAL) Strep A Nucleic Acid (12/31/2024 11:05 AM EDT) IDNOW SERIAL# [id number] [facility] Strep A Nucleic Acid Positive(A ) Negative [facility] Comment:All test results mus t be [...] LAB MICROBIOLOGY - GENERAL ORDERABLES Final Result [facility] [address] [place] [phone] * Partial Thromboplastin Time, Activated (APTT) (12/31/2024 11:05 AM EDT) Pathologist [facility] Partial Thromboplastin Time 32.7 26.7 - 34.1 SEC [facility] 12/31/2024 11:0 5 AM EDT 12/31/2024 11:11 AM EDT Generic External Data Provider LAB BLOOD ORDERAB LES Final Result Performing Organization Address [facility] Co de Phone Number [facility] [address] [place] [phone] * (ABNORMAL) Prothrombin Time-INR (12/31/2024 11:05 AM EDT) [facility] Prothrombin Time 12.7(H) 10.9 - 12.4 SEC [facility] INTERNATIONAL NORM RATIO 1.1 0.9 - 1.1 [facility] Comment:INTERNATIONAL NORMAL IZED RATIO (INR) REFERENCE [...] ORDERAB LES Final Result Performing Organization Address [facility] Co de Phone Number [facility] [address] [place] [phone] * B Type Natriuretic Peptide (BNP) (12/31/2024 11:05 AM EDT) Pathologist [facility] B Type Natriuretic Peptide 58 <100 pg/mL [facility] 12/31/2024 11:0 5 AM EDT 12/31/2024 11:11 AM EDT us Generic External Data Provider LAB BLOOD ORDERAB LES Final Result Performing Organization Address [facility] de Phone Number [facility] [address] [place] [phone] * (ABNORMAL) Lipid Panel, Standard (11/23/2024 8:34 AM EDT) Triglycerides 95 <150 mg/dL [facility] Comment:Desirable Triglyceri de: less than 150 mg/dLBorderline High Triglyceride 150-199 mg/dLHigh Triglyceride: 200-499 mg/dLVery High Triglyceride: greater than or equal to 5OO mg/dL Cholesterol 187 <200 mg/dL [facility] Comment:Desirable Cholestero l: less than 200 mg/dLBorderline High Cholesterol: 200-239 mg/dLHigh Cholesterol: greater than 239 mg/dL LDL Cholesterol Calculated 139(H) <100 mg/dL [facility] Comment:Desirable LDL: less than 100 mg/dLNear Optimal/Above Optimal LDL: 110- 129 mg/dLBorderline High LDL: 130-159 mg/dLHigh LDL: 160-189 mg/dLVery High LDL: greater than or equal to 190 mg/dL HDL Cholesterol 29(L) >40 mg/dL [facility] Comment:Desirable HDL: great er than 40 mg/dL Note: This HDL assay may give artificially low results in patients with liver disease. Blood Venous blood specimen / Unknown 11/23/2024 8:34 AM EDT 11/23/2024 8:34 AM EDT us Alyse Parker MD LAB BLOOD ORDERABLES Final Re sult Performing Organization Address [facility]/ZIP Co de Phone Number [facility] [address] [place] [phone] * Hepatitis C Ab (01/26/2023 9:46 AM EDT) Hepatitis C Antibody Nonreactive Nonreactive [facility] Comment:Antibodies to HCV no t detected; does not exclude early acuteHCV infection. Blood 01/26/2023 9:46 AM EDT 01/26/2023 2:42 PM EDT us Alyse Parker MD LAB BLOOD ORDERABLES Final Re sult [facility] [address] [place] [phone] from Last 3 Months or Most Recently Relevant to Health Maintenance Insurance [facility] [employer] (O D-SNP) [employer] [id number] Care Teams Guest Relations Receptionist Relationship Specialty Start Date End Date Alyse Parker MD [address] [place] [address] PCP - General Family Medicine 01/17/23
--- OUTSIDE RECORDS SUMMARY | 2025-03-06 12:05 | XMS_ITS | Encounter Summary ---
Author Organization [employer] Address [address] [facility] [address] [place] [address] Care Team Providers Care Grievance Manager Name Role Phone Alyse Parker MD Primary Care Provider [phone] Encounter Details Date Type Department Care Team (Late Contact Info) Description 11/19/2022 [facility] [employer] Information Management [address] [place] [address] Carmen Caceres MD [address] [place] [address] Social History Tobacco Use Types Packs/Day Years [...] Description 04/16/2025 10:15 AM EST Office Visit [facility] [address] [place] [address] Phil Waters MD [address] [place] [address] documented as of this encounter Visit Diagnoses Not on filedocumented in this encounter Care Teams Grievance Manager Relationship Specialty Start Date End Date Alyse Parker MD [address] [place] [address] PCP - General Family Medicine 01/17/23 documented as of this encounter
--- OUTSIDE RECORDS SUMMARY | 2025-03-06 12:05 | XMS_ITS | Encounter Summary ---
Author Organization [employer] Address [address] [facility] 7t [place] [address] Care Team Providers Care Pull Worker Name Role Phone Alyse Parker MD Primary Care Provider [phone] Reason for Visit * Reason Onset Date Comments New Patient Appt 12/03/2022 Encounter Details Date Type Department Care Team ([facility] st Contact Info) Description 12/03/2022 Telephone [facility] MEDICINE [address] [place] [address] Jones Segal MD [address] [place] [address] New Patient Appt Social History Tobacco Use [...] PAR Mica Long called pt to Offer ASSEMBLER CHASSIS appt. Pt demographics and insurance information were verified. Pt reports the following medical conditions: Heart Surgery done 5-7 years Ago, High Blood pressure and other chronic conditions. Pt is currently taking medication: Yes ( advice to please bring appt. ) Pt given ASSEMBLER CHASSIS appt with Dr. Alyse Parker on 01/17/2023 @ 9:30 am. Pt will be sent appt reminder card and medical release form and agrees to complete and to return to medical records prior to ASSEMBLER CHASSIS appt. * Telephone Encounter - Mica Griggs - 12/03/2022 11:00 AM EDT New Patients Par Mica Long called to schedule New patient appt, pt did not answer left voicemail to give a call at [phone]. documented in this encounter Plan of Treatment Upcoming Encounters Date Type Department Care Team (Late st Contact Info) Description 04/16/2025 10:15 AM EST Office Visit [facility] MED & PEDS [address] [place] [address] Phil Waters MD [address] [place] [address] documented as of this encounter Visit Diagnoses Not on filedocumented in this encounter Care Teams Pull Worker Relationship Specialty Start Date End Date Alyse Parker MD [address] [place] [id number] PCP - General Family Medicine 01/17/23 documented as of this encounter
--- OUTSIDE RECORDS SUMMARY | 2025-03-06 12:05 | XMS_ITS | Encounter Summary ---
Author Organization [employer] Address [address] [facility] [address] 7[address] [place] [address] Care Team Providers Care Certified Nursing Attendant Name Role Phone Alyse Parker MD Primary Care Provider [phone] Encounter Details Date Type Department Care Team (Late st Contact Info) Description 04/24/2024 Telephone [facility] MEDICINE [address] [place] [address] Alyse Parker MD [address] [place], [place] [phone] Social History Tobacco Use Types Packs/Day Years [...] Description 04/16/2025 10:15 AM EST Office Visit [facility] MED & PEDS [address] [place] [address] Phil Waters MD [address] [place] [address] documented as of this encounter Visit Diagnoses Not on filedocumented in this encounter Additional Health Concerns Assessment Noted Time PHQ-9 Depression Total Score: 3 02/02/20 24 11:22 AM EDT documented as of this encounter Care Teams Certified Nursing Attendant Relationship Specialty Start Date End Date Alyse Parker MD [address] [place] [address] PCP - General Family Medicine 01/17/23 documented as of this encounter
== END 2025-03-06 11:19 | disposition home or self-care (01) ==
PROVIDERS: PCP Family Medicine; Visit Provider Nurse Practitioner Family
DX: Z01.818 Encounter for other preprocedural examination (principal); Z12.11 Encounter for screening for malignant neoplasm of colon
CPT/HCPCS: 99024

== ENCOUNTER → 2025-03-06 10:22 | Outpatient (BNVA) | payer OTHER, SELFPAY | PROVIDERS: PCP Family Medicine; Visit Provider Nurse Practitioner Family | DX: Z01.818 Encounter for other preprocedural examination (principal) | CPT/HCPCS: 99212 ==

== ENCOUNTER 2025-03-07 07:33 | Outpatient (REF) | payer OTHER, SELFPAY ==
--- OUTSIDE RECORDS SUMMARY | 2025-03-07 07:36 | XMS_ITS | Encounter Summary ---
Author Organization [employer] Address [address] [facility] 7 [place] [address] Care Team Providers Care Track Subway Repair Supervisor Name Role Phone Alyse Parker MD Primary Care Provider [phone] Encounter Details Date Type Department Care Team (Late Contact Info) Description 11/19/2022 [facility] [employer] [address] [place] [address] Carmen Caceres MD [address] [place] [address] Social History Tobacco Use Types Packs/Day Years [...] Description 04/16/2025 10:15 AM EST Office Visit [facility]EDS [address] [place] [address] Phil Waters MD [address] [place] [address] documented as of this encounter Visit Diagnoses Not on filedocumented in this encounter Care Teams Track Subway Repair Supervisor Relationship Specialty Start Date End Date Alyse Parker MD [address] [place] [address] PCP - General Family Medicine 01/17/23 documented as of this encounter
--- OUTSIDE RECORDS SUMMARY | 2025-03-07 07:36 | XMS_ITS | Encounter Summary ---
Author Organization [employer] Address [address] [facility] 7t [place] [address] Care Team Providers Care Hair Sample Matcher Name Role Phone Alyse Parker MD Primary Care Provider [phone] Encounter Details Date Type Department Care Team (Late Contact Info) Description 12/03/2022 Telephone [facility] MED & PEDS [address] [place], [place] [phone] Alyse Parker MD [address] [place], [place] [phone] Social History Tobacco Use Types Packs/Day Years [...] Description 04/16/2025 10:15 AM EST Office Visit [facility] MED & PEDS [address] [place] [address] Phil Waters MD [address] [place] [address] documented as of this encounter Visit Diagnoses Not on filedocumented in this encounter Care Teams Hair Sample Matcher Relationship Specialty Start Date End Date Alyse Parker MD [address] [place] [address] PCP - General Family Medicine 01/17/23 documented as of this encounter
--- OUTSIDE RECORDS SUMMARY | 2025-03-07 07:36 | XMS_ITS | Encounter Summary ---
Author Organization [employer] Address [address] [facility] 7[address] [place] [address] Care Team Providers Care Furnace Fitter Name Role Phone Alyse Parker MD Primary Care Provider [phone] Reason for Visit * Reason Onset Date Comments New Patient Appt 12/03/2022 Encounter Details Date Type Department Care Team ([facility] st Contact Info) Description 12/03/2022 Telephone [facility] MEDICINE [address] [place] [address] Jones Segal MD [address] [place] [address] New Patient Appt Social History Tobacco Use [...] PAR Mica Long called pt to Offer FIELD ARTILLERY CANNONEER appt. Pt demographics and insurance information were verified. Pt reports the following medical conditions: Heart Surgery done 5-7 years Ago, High Blood pressure and other chronic conditions. Pt is currently taking medication: Yes ( advice to please bring appt. ) Pt given FIELD ARTILLERY CANNONEER appt with Dr. Alyse Parker on 01/17/2023 @ 9:30 am. Pt will be sent appt reminder card and medical release form and agrees to complete and to return to medical records prior to FIELD ARTILLERY CANNONEER appt. * Telephone Encounter - Mica Griggs - 12/03/2022 11:00 AM EDT New Patients Par Mica Long called to schedule New patient appt, pt did not answer left voicemail to give a call at [phone]. documented in this encounter Plan of Treatment Upcoming Encounters Date Type Department Care Team (Late st Contact Info) Description 04/16/2025 10:15 AM EST Office Visit [facility] MED & PEDS [address] [place] [address] Phil Waters MD [address] [place] [address] documented as of this encounter Visit Diagnoses Not on filedocumented in this encounter Care Teams Furnace Fitter Relationship Specialty Start Date End Date Alyse Parker MD [address] [place] [address] PCP - General Family Medicine 01/17/23 documented as of this encounter
--- OUTSIDE RECORDS SUMMARY | 2025-03-07 07:36 | XMS_ITS | Encounter Summary ---
Author Organization [employer] Address [address] [facility] 7t [place] [address] Care Team Providers Care Asbestos Shingle Inspector Name Role Phone Alyse Parker MD Primary Care Provider [phone] Reason for Visit * Reason Onset Date Comments Referral 02/22/2025 Encounter Details Date Type Department Care Team ([facility] st Contact Info) Description 02/22/2025 Telephone [facility]S [address] [place], [place] [phone] Alyse Parker MD 505 [place], [place] [phone] Referral Social History Tobacco Use Types Packs/Day [...] back regarding prior message Contact pt at [phone] (czech) * Telephone Encounter - Dominick Mariee - 02/22/2025 2:34 PM EDT Tc from pt requesting a referral for continuous improvement engineer at the [facility] [place]. Any questions contact pt at [phone] documented in this encounter Plan of Treatment Upcoming Encounters Date Type Department Care Team (Late st Contact Info) Description 04/16/2025 10:15 AM EST Office Visit [facility] MED & PEDS [address] [place] [address] Phil Waters MD [address] [place] [address] documented as of this encounter Visit Diagnoses Not on filedocumented in this encounter Additional Health Concerns Assessment Noted Time PHQ-9 Depression Total Score: 3 02/02/20 11:22 AM EDT documented as of this encounter Care Teams Asbestos Shingle Inspector Relationship Specialty Start Date End Date Alyse Parker MD [address] [place] [address] PCP - General Family Medicine 01/17/23 documented as of this encounter
--- OUTSIDE RECORDS SUMMARY | 2025-03-07 07:36 | XMS_ITS | Encounter Summary ---
Author Organization [employer] Address [address] [facility] [address] 7[address] [place] [address] Care Team Providers Care Matrix Bath Operator Name Role Phone Alyse Parker MD Primary Care Provider [phone] Encounter Details Date Type Department Care Team (Late st Contact Info) Description 04/24/2024 Telephone [facility] MEDICINE [address] [place] [address] Alyse Parker MD [address] [place], [place] [phone] Social History Tobacco Use Types Packs/Day Years [...] Description 04/16/2025 10:15 AM EST Office Visit [facility] MED & PEDS [address] [place] [address] Phil Waters MD [address] [place] [address] documented as of this encounter Visit Diagnoses Not on filedocumented in this encounter Additional Health Concerns Assessment Noted Time PHQ-9 Depression Total Score: 3 02/02/20 24 11:22 AM EDT documented as of this encounter Care Teams Matrix Bath Operator Relationship Specialty Start Date End Date Alyse Parker MD [address] [place] [address] PCP - General Family Medicine 01/17/23 documented as of this encounter
--- OUTSIDE RECORDS SUMMARY | 2025-03-07 07:36 | XMS_ITS | Clinical Summary ---
Author Organization [employer] Address [address] [facility] [address] [place] [address] Care Team Providers Care Home Restoration Service Cleaner Name Role Phone Alyse Parker MD Primary Care Provider [phone] Allergies No known active allergies Medications tadalafil [...] Type Department Care Team Description 02/25/2025 Telephone [facility] [address] [place] [address] Alyse Parker MD 02/22/2025 Telephone [facility] [address] [place] [address] Alyse Parker MD Referral 02/19/2025 10:45 AM EDT Office Visit [facility] [address] [place] [address] Phil Waters MD Trichofolliculoma (Primary Dx) 02/19/2025 Travel 02/11/[address] [address] Alyse Pakrer MD 01/31/2025 3:30 PM EDT Office Visit [facility] [address] [place] [address] Phil Waters MD Pneumonia of right middle lobe due to infectious organism (Primary Dx) 01/31/2025 Travel 01/31/2025 Telephone [facility] [address] [place] [address] Alyse Parker MD Nurse Triage 01/27/2025 Orders Only GENERIC EXTERNAL DATA DEPARTMENT Provider, Generic External Data 01/17/2025 Refill [facility] [address] [place] [address] Alyse Parker MD 01/15/2025 9:30 AM EDT Office Visit [facility] [address] [place] [address] Phil Waters MD Trichofolliculoma (Primary Dx) 01/15/2025 Travel 01/08/2025 3:20 PM EDT Office Visit [facility] [address] [place] [address] Krissy Abraham MD Viral upper respiratory tract infection 01/08/2025 Travel 01/01/2025 Telephone [facility] [address] [place] [address] Alyse Parker MD ER Follow-up 12/31/2024 Orders Only [facility] External Provider, [facility] from Last 3 Months Immunizations Immunization Administration [...] ([facility] st Contact Info) Description 04/16/2025 10:15 AM EST Office Visit [facility] [address] [place] [address] Phil Waters MD [address] [place] [address] Health Maintenance Due Date Last Done Comments [...] Screening 02/19/2026 02/19/2025 Lipid Panel 11/23/2029 11/23/2024, 01/01, 02/06/2020 DTaP/Tdap/Td [...] NUCLEIC ACID Routine 12/31/2024 11:05 AM EDT LIPID PANEL, STANDARD Routine 11/23/2024 8:34 AM [...] given: No Instructions and paperwork completed: Yes Quinter protocol: Procedure explained and questions answered to [...] AM EDT Narrative 02/07/2025 12:07 PM EDT [place] [address] XRay Report Signed Patient: David Matias MR#: [id number] : 1955 Acct:[id number] Age/Sex: 69 / M ADM Date: 02/07/25 Loc: [facility] Attending Dr: Jonathan Muniz MD Ordering Physician: Phil Waters MD Date of Service: 02/07/25 Procedure(s): XR chest 2V Accession Number(s): [id number] cc: Phil Waters MD; Alyse Parker MD [...] 02/07/25 1204 DD/ 1158 TD/TT: 02/07/25 1158 Costume Seamstress: Procedure Note Donotuseinterpreter, Image - 02/07/2025 [place] [address] XRay Report Signed Patient: David MatiasMR#: [id number] : 1955cct:[id number] Age/Sex: 69 / MADM Date: 02/07/25 Loc: [facility] Attending Dr: Jonathan Muniz MD Ordering Physician: Phil Waters MD Date of Service: 02/07/25 Procedure(s): XR chest 2V Accession Number(s): [id number] cc: Phil Waters MD; Alyse Parkre MD Reason for Exam: Pneumonia right perihilar [...] 02/07/25 1204 DD/ 1158 TD/TT: 02/07/25 1158 Costume Seamstress: us Phil Waters MD IMG XR PROCEDURES Final Res ult * SARS-CoV-2 RNA, Influenza A/B, and RSV RNA, Ql NAAT (01/27/2025 11:56 AM EDT) Influenza A PCR NEGATIVE Negative [facility] Influenza B PCR NEGATIVE Negative [facility] Resp Syncy Virus RNA Qual PCR NEGATIVE Negative [facility] SARS COV2 PCR NEGATIVE Negative [facility] Comment:All test results mus t [...] use by authorized laboratories.Testing performed on the [employer] GeneXpert utilizingreal-time RT-PCR.All SARS CoV2 and positive influenza A/B results arereported to [facility]. 01/27/2025 11:5 6 AM EDT 01/27/2025 12:06 PM EDT us Generic External Data Provider LAB MICROBIOLOGY - GENERAL ORDERABLES Final Result [facility] [address] [place] [phone] * High Sensitivity Troponin I (01/27/2025 10:21 AM EDT) Only the most recent of2 resultswithin the time period is included. TROPONIN I HIGH SENSITIVITY <2.7 <3.5 - 35.0 ng/L [facility] Comment:The Gutierrez high sens itivity Troponin-I results should beused in conjunction with other diagnostic information suchas ECG, clinical observations and information, and patientsymptoms to aid in the diagnosis of HI. 01/27/2025 10:2 1 AM EDT 01/27/2025 10:26 AM EDT us Generic External Data Provider LAB BLOOD ORDERAB LES Final Result [facility] [address] [place] [phone] * (ABNORMAL) CBC auto differential (01/27/2025 10:21 AM EDT) Only the most recent of2 resultswithin the time period is included. White Blood Count 5.4 4.8 - 10.8 X10*3/uL [facility] Red Blood Count 4.95 4.60 - 5.80 X10*6/uL [facility] Hemoglobin 15.7 14.0 - 18.0 g/dl [facility] Hematocrit 43.9 42.0 - 52.0 % [facility] Mean Corpuscular Volume 88.7 80.0 - 98.0 fL [facility] Mean Corpuscular Hemoglobin 31.7 27.0 - 33.0 pg [facility] Mean Corpuscular HGB Conc 35.8 31.0 - 36.0 g/dl [facility] Red Cell Distribution Width 13.3 11.0 - 16.0 % [facility] Platelet Count 178 160 - 400 X10*3/uL [facility] Mean Platelet Volume 10.0 9.4 - 12.4 fL [facility] Neutrophils Percent Auto 47.2 45 - 73 % [facility] Imm Gran Pct Auto 0.6(H) 0.0 - 0.4 % [facility] Lymphocytes Percent Auto 36.4 20 - 40 % [facility] Monocytes Percent Auto 10.8 2 - 11 % [facility] Eosinophils Percent Auto 4.1(H) 0 - 4 % [facility] Basophils Percent Auto 0.9 0 - 2 % [facility] NRBC Pct Auto 0.0 0.0 - 0.2 /100WBC [facility] Neutrophils Absolute Auto 2.5 2.0 - 8.3 x10*3/uL [facility] Imm Gran Abs Auto 0.03 0.00 - 0.03 X10*3/uL [facility] Lymphocytes Absolute Auto 2.0 1.2 - 4.9 X10*3/uL [facility] Monocytes Absolute Auto 0.6 0.1 - 1.2 X10*3/uL [facility] Eosinophils Absolute Auto 0.2 0.0 - 0.4 X10*3/uL [facility] Basophils Absolute Auto 0.1 0.0 - 0.2 X10*3/uL [facility] NRBC Abs Auto 0.000 0.0 - 0.012 X10*3/uL [facility] 01/27/2025 10:2 1 AM EDT 01/27/2025 10:26 AM EDT us Generic External Data Provider LAB BLOOD ORDERAB LES Final Result [facility] [address] [place] [address] [phone] * (ABNORMAL) Comprehensive Metabolic Panel (01/27/2025 10:21 AM EDT) Only the most recent of2 resultswithin the time period is included. Sodium 137 135 - 145 mmol/L [facility] Potassium 4.0 3.3 - 5.1 mmol/L [facility] Chloride 107 96 - 108 mmol/L [facility] Carbon Dioxide 24 22 - 29 mmol/L [facility] Anion Gap 10(L) 12 - 20 [facility] Urea Nitrogen (BUN) 13 9 - 16 mg/dL [facility] Creatinine, Serum 0.80 0.5 - 1.4 mg/dL [facility] Creatinine Clr Calc Pharmacy 73.6 [facility] Comment:eGFR (calculated fro m the MDRD study equation) and eCrCl(calculated from the Cockcroft-Gault equation) are based ondifferent parameters and may not yield comparable results.If eCrCl result is absurd, please check patient'sheight/weight. Estimated Glomerular Filt Rate >60 [facility] Comment:Chronic Kidney Disea se: Estimated GFR < 60 mL/min/1.26e9Ohhmoi Kidney Disease: Estimated GFR < 15 mL/min/1.73m2 Glucose 190(H) 60 - 115 mg/dL [facility] Calcium 8.8 8.4 - 10.2 mg/dL [facility] Bilirubin, Total 0.8 0.0 - 1.0 mg/dL [facility] Aspartate Amino Transferase 23 5 - 37 U/L [facility] Alanine Aminotransferase 13 0 - 40 U/L [facility] Total Protein 7.5 6.5 - 8.0 g/dL [facility] Albumin Level 4.0 3.5 - 5.0 g/dL [facility] Alkaline Phosphatase 69 39 - 117 U/L [facility] 01/27/2025 10:2 1 AM EDT 01/27/2025 10:26 AM EDT us Generic External Data Provider LAB BLOOD ORDERAB LES Final Result Performing Organization Address City/State/[facility] Co de Phone Number [facility] [address] [place] [phone] * Cryotherapy, skin lesion (01/15/2025 10:01 [...] given: No Instructions and paperwork completed: Yes Quinter protocol: Procedure explained and questions answered to [...] NOW Rapid Molecular) (01/08/2025 2:59 PM EDT) [facility] Influenza B Negative Negative, Indeterminate [facility] Swab 01/08/2025 2:59 PM EDT us Krissy Brambila MD POINT OF CARE TEST EN TER/EDIT ORDERABLES Final Result Performing Organization Address [facility] Co de Phone Number [facility] [address] [place] [phone] * Influenza A (ID NOW Rapid Molecular) (01/08/2025 2:59 PM EDT) [facility] Influenza A Negative Negative, Indeterminate [facility] Swab 01/08/2025 2:59 PM EDT us Krissy Brambila MD POINT OF CARE TEST EN TER/EDIT ORDERABLES Final Result Performing Organization Address [facility] Co de Phone Number [facility] [address] [place] [phone] * POCT Rapid COVID Ag (01/08/2025 2:59 PM EDT) [facility] Rapid COVID Ag Negative [facility] Swab 01/08/2025 2:59 PM EDT us Krissy Brambila MD POINT OF CARE TEST EN TER/EDIT ORDERABLES Final Result [facility] [address] [place] [phone] * XR Chest 1 View (12/31/2024 1:32 PM EDT) Anatomical Region Laterality Modality Chest Radiographic Mary ging 12/31/2024 1:32 PM EDT Narrative 12/31/2024 1:34 PM EDT [address] [address] XRay Report Signed Patient: David Matias MR#: [id number] : 1955 Acct:[id number] Age/Sex: 69 / M ADM Date: 12/31/24 Loc: HO.ED Attending Dr: Ordering Physician: Neftaly Monreal Date of Service: 12/31/24 Procedure(s): XR chest 1V Accession Number(s): [id number] cc: Neftaly Monreal; Alyse Parker MD CLINICAL [...] 12/31/24 1333 DD/ 1332 TD/TT: 12/31/24 1332 Costume Seamstress: Procedure Note Donotuseinterpreter, Image - 12/31/[address] [address] XRay Report Signed Patient: David MatiasMR#: [id number] : 4Acct:[id number] Age/Sex: 69 / MADM Date: 12/31/24 Loc: .ED Attending Dr: Ordering Physician: Neftaly Monreal Date of Service: 12/31/24 Procedure(s): XR chest 1V Accession Number(s): [id number] cc: Neftaly Monreal; Alyse Parker MD CLINICAL [...] 12/31/24 1333 DD/ 1332 TD/TT: 12/31/24 1332 Costume Seamstress: [facility] External Provider IMG XR PROCEDURES Edited Result - Final * COVID-19 ID NOW (GUTIERREZ) (12/31/2024 11:06 AM EDT) IDNOW SERIAL# [id number] [facility] COVID-19 TEST Negative Negative [facility] COVID-19 NOTE See Note [facility] Comment: Results are for the identification of SARS-CoV2 RNA. TheSARS-CoV2 RNA is generally detectable in respiratory samplesduring the acute phase of infection. Positive results areindicative of the presence of SARS-CoV-2 RNA; clinicalcorrelation with patient history and other diagnosticinformation is necessary to determine patient infectionstatus. Positive results do not rule out bacterial infectionor co- infection with other viruses.Testing facilities within the [facility] and [facility] are required to report all positive results [...] 6 AM EDT 12/31/2024 11:11 AM EDT [employer] External Data Provider LAB MOLECULAR SERGIO GNOSTICS ORDERABLES Final Result [facility] [address] [place] [phone] * Influenza A B2 ID NOW (Gutierrez) (12/31/2024 11:05 AM EDT) IDNOW SERIAL# [id number] [facility] Influenza A Negative Negative [facility] Influenza B2 Negative Negative [facility] Influenza A B2 Note See Note [facility] Comment:The Gutierrez ID NOW In [...] GENERAL ORDERABLES Final Result Performing Organization Address [facility] Co de Phone Number [facility] [address] [place] [address] [phone] * (ABNORMAL) Strep A Nucleic Acid (12/31/2024 11:05 AM EDT) IDNOW SERIAL# [id number] [facility] Strep A Nucleic Acid Positive(A ) Negative [facility] Comment:All test results mus t [...] GENERAL ORDERABLES Final Result Performing Organization Address [facility] Co de Phone Number [facility] [address] [place] [phone] * Partial Thromboplastin Time, Activated (APTT) (12/31/2024 11:05 AM EDT) Partial Thromboplastin Time 32.7 26.7 - 34.1 SEC [facility] 12/31/2024 11:0 5 AM EDT 12/31/2024 11:11 AM EDT Generic External Data Provider LAB BLOOD ORDERAB LES Final Result Performing Organization Address [facility] Co de Phone Number [facility] [address] [place] [phone] * (ABNORMAL) Prothrombin Time-INR (12/31/2024 11:05 AM EDT) Prothrombin Time 12.7(H) 10.9 - 12.4 SEC [facility] INTERNATIONAL NORM RATIO 1.1 0.9 - 1.1 [facility] Comment:INTERNATIONAL NORMAL IZED RATIO (INR) [...] ORDERAB LES Final Result Performing Organization Address [facility] Co de Phone Number [facility] [address] [place] [phone] * B Type Natriuretic Peptide (BNP) (12/31/2024 11:05 AM EDT) Pathologist [facility] B Type Natriuretic Peptide 58 <100 pg/mL [facility] 12/31/2024 11:0 5 AM EDT 12/31/2024 11:11 AM EDT Generic External Data Provider LAB BLOOD ORDERAB LES Final Result Performing Organization Address [facility] Co de Phone Number [facility] [address] [place] [phone] * (ABNORMAL) Lipid Panel, Standard (11/23/2024 8:34 AM EDT) Triglycerides 95 <150 mg/dL [facility] Comment:Desirable Triglyceri de: less than 150 mg/dLBorderline High Triglyceride 150-199 mg/dLHigh Triglyceride: 200-499 mg/dLVery High Triglyceride: greater than or equal to 5OO mg/dL Cholesterol 187 <200 mg/dL [facility] Comment:Desirable Cholestero l: less than 200 mg/dLBorderline High Cholesterol: 200-239 mg/dLHigh Cholesterol: greater than 239 mg/dL LDL Cholesterol Calculated 139(H) <100 mg/dL [facility] Comment:Desirable LDL: less than 100 mg/dLNear Optimal/Above Optimal LDL: 110- 129 mg/dLBorderline High LDL: 130-159 mg/dLHigh LDL: 160-189 mg/dLVery High LDL: greater than or equal to 190 mg/dL HDL Cholesterol 29(L) >40 mg/dL [facility] Comment:Desirable HDL: great er than 40 mg/dL Note: This HDL assay may give artificially low results in patients with liver disease. Blood Venous blood specimen / Unknown 11/23/2024 8:34 AM EDT 11/23/2024 8:34 AM EDT us Alyse Parker MD LAB BLOOD ORDERABLES Final Re sult Performing Organization Address [facility] Co de Phone Number [facility] [address] [place], [place] [phone] * Hepatitis C Ab (01/26/2023 9:46 AM EDT) Hepatitis C Antibody Nonreactive Nonreactive [facility] Comment:Antibodies to HCV no t detected; does not exclude early acuteHCV infection. Blood 01/26/2023 9:46 AM EDT 01/26/2023 2:42 PM EDT Alyse Parker MD LAB BLOOD ORDERABLES Final Re sult Performing Organization Address [facility] Co de Phone Number [facility] [address] [place], [place] [phone] from Last 3 Months or Most Recently Relevant to Health Maintenance Insurance [facility] USP OPTIONS (O D-SNP) [employer] [id number] Care Teams Home Restoration Service Cleaner Relationship Specialty Start Date End Date Alyse Parker MD [address] [place] [address] PCP - General Family Medicine 01/17/23
[2025-03-07] MEDS: Lidocaine HCl 1 % MPF 5 ML VIAL 10 ML SUBCUT (08:56)
--- NOTE | 2025-03-07 10:45 | P.OP_ITS ---
Operative Note Operative Note Date of Service: 03/07/25 Narrative: Preoperative diagnosis: Elevated PSA Postoperative diagnosis: Elevated PSA Procedure: 1. transrectal ultrasound measurement of prostate 2. transrectal ultrasound-guided pudendal nerve block 3. transrectal ultrasound-guided prostate biopsy 12 core Surgeon: Dr. Juan Mcclure Anesthetic: 10cc 1% lidocaine Indications for procedure: Elevated PSA - 4.3 Counselling: Technical aspects, risks and benefits of proposed procedure were discussed in full. All questions have been answered, written consent has been obtained and patient agrees to proceed. Procedure: The patient was brought into the procedure area and placed in a left lateral decubitus position. Patient identity confirmed. Perioperative antibiotics confirmed. Safety pause time out performed. MANUEL was performed to dilate rectal sphincter Iodine 10cc with 60 cc gel was placed per rectum to reduce infection risk using a catheter tip syringe. 8 Hz [place] rectal end-fire ultrasound probe was placed transrectally without difficulty. The prostate was visualized. Seminal vesicles were normal. Prostate margins were clearly demarcated. Bladder was seen superiorly. No cystic structures were noted Marginal calcifications were noted at the surgical margin The prostate was otherwise homogeneous in nature The prostate was measured in 3 dimensions Prostatic Width: 4.5 cm Prostatic Height: 4.2 cm Urethral Length: 4.5 cm Total volume equals : 45 ml An ultrasound-guided pudendal nerve block was performed using a 22 gauge spinal needle in the sagittal plane. 4 cc of 1% lidocaine placed at the junction of each seminal vesicle and 2 cc placed at the apex of the prostate. A 12 core biopsy was performed with 6 cores each side using an 18 gauge prostate biopsy gun. Two cores each were taken at the prostate apex, mid and base on each side. Cores were spaced between lateral and medial aspects. Each core was examined as placed on specimen foam as part of senior quality engineer to ensure a minimum 1 cm of length and minimal discontinuity. He tolerated the procedure well with minimal rectal bleeding. Blood pressure remained stable following procedure. He was able to ambulate to bathroom after 5 minutes. Printed instructions regarding antibiotic use and common adverse events from the procedure such as low-grade temperature, potential infection and bleeding were given. He understands to call the office or go to an emergency room should any of these events arise. Pathology: 12 core prostate biopsy. CPT code 56399: Transrectal ultrasound; this is a diagnostic test for evaluation of the prostate and surrounding structures, looking for abnormalities or suspicious areas worrisome for cancer CPT code 02173: Biopsy, prostate; needle or punch, single or multiple, any approach CPT code 55103: Ultrasonic guidance for needle placement (eg, biopsy, aspiration, injection, localization device), imaging supervision and interpretation
== END 2025-03-07 07:34 | disposition home or self-care (01) ==
LOC: HO.US 07:33
PROVIDERS: PCP Family Medicine; Visit Provider Urology
DX: R97.20 Elevated prostate specific antigen [PSA] (principal)
CPT/HCPCS: 55700; 76942; 88305; J2003

== ENCOUNTER → 2025-03-07 07:33 | Outpatient (BNV) | payer OTHER, SELFPAY | PROVIDERS: PCP Family Medicine; Visit Provider Urology | DX: R97.20 Elevated prostate specific antigen [PSA] (principal) | CPT/HCPCS: 55700; 76872; 76942 ==

== ENCOUNTER 2025-03-22 13:06 | Outpatient (AMB) | payer OTHER, SELFPAY ==
--- NOTE | 2025-03-22 13:06 | A.OFFVIS_ITS ---
Intake Visit Reasons: Prostate biopsy results Intake Note: Patient presents today via telehealth for prostate biopsy results Urology Medication:Tadalafil Blood Thinner:None Antibiotic Allergies:None Oracle Database Administrator Required: Yes Oracle Database Administrator Name: ewelina Bennett Allergies No Known Allergies (No Known Allergies*) Allergy (Verified 05/06/25 08:34) HPI Comments Details: 03/22/25--prostate biopsies negative. Continue Proscar and Cialis follow-up with nurse practitioner Bridget in 6 months repeat PSA. History of Present Illness The patient is a 69-year-old individual presenting with concerns regarding prostate health and medication side effects. The patient recently underwent a prostate biopsy, which returned benign results, indicating no presence of cancer cells. The patient is currently on finasteride (Proscar) for prostate health management. The patient reported experiencing side effects from finasteride and expressed a preference for a previous medication prescribed by Dr. Mcclure, which was perceived to be more effective. Results - Prostate biopsy: Benign, no cancer cells detected Plan 1. Status Post Prostate Biopsy - Continue monitoring prostate health with repeat PSA testing in six months. 02/07/25 History of Present Illness The patient is a 69-year-old male presenting with elevated Prostate-Specific Antigen (PSA) levels. The PSA was measured at 4.26 on November 23, 2024, which is above the normal range of 0 to 4. A previous PSA measurement in 2023 was 3.26, indicating a rising trend. Family History of prostate cancer, father, age 93. The patient reports occasional nocturia, having to get up twice at night to urinate, but denies any significant straining during urination. The discussion included the possibility of benign prostatic hyperplasia (BPH) as the prostate enlarges with age, potentially affecting urinary flow. Results - Labs: PSA level of 4.26 on 11/23/2024 - Labs: PSA level of 3.26 on 08/15/2023 Plan 1. Elevated Prostate-Specific Antigen (Psa) - Plan to perform an ultrasound to evaluate the kidneys, bladder, and prostate size. - Initiate finasteride therapy to reduce prostate size and potentially lower PSA levels. - Schedule a follow-up appointment in four months with repeat PSA testing. - Plan for a prostate biopsy to assess for potential malignancy. [facility] Medical History Hyperlipidemia H/O urinary retention HTN (hypertension) Colitis Decrease in appetite Coronary artery disease involving coronary bypass graft of [place] heart Peripheral tear of medial meniscus of left knee Left knee pain Surgical History History of colonoscopy (~2018) S/P CABG x 3 (~2017) History of cardiac catheterization (~2006) Family History Father No problems noted. Mother No problems noted. Social History Alcohol intake: current Alcohol intake frequency: does not drink Patient Tobacco Use Status: Never used Tobacco Telehealth Telehealth Telehealth Platform: [employer] Location of provider rendering services: practice address Location of patient: address on file Patient Identification confirmed using: Name, : Yes Telehealth method: video Patient verbally consented to treatment: Yes Patient verbally consented to billing insurance company: Yes Patient informed of any privacy concerns related to visit: Yes Results Reviewed Results Reviewed: Collected: 03/07/25 Location: [facility] Received: 03/07/25 Diagnosis Prostate, needle core biopsies: A. Left base lateral: Benign prostatic tissue. B. Left base medial: Benign prostatic tissue. C. Left mid lateral: Benign prostatic tissue. D. Left mid medial: Benign prostatic tissue. E. Left apex lateral: Benign prostatic tissue. F. Left apex medial: Benign prostatic tissue. G. Right base lateral: Benign prostatic tissue. H. Right base medial: Stroma only. I. Right mid lateral: Benign prostatic tissue. J. Right mid medial: Benign prostatic tissue. K. Right apex lateral: Benign prostatic tissue. L. Right apex medial: Benign prostatic tissue. Comment: Scattered foci of inflammation noted. Clinical History Elevated PSA Patient: David Matias Age/Sex: 69/M MR#: [id number] Assessment & Plan Assessment & Plan (1) BPH with elevated PSA: Code(s): N40.0 - Benign prostatic hyperplasia without lower urinary tract symptoms; R97.20 - Elevated prostate specific antigen [PSA] Category: Medical (2) Family history of prostate cancer: Code(s): Z80.42 - Family history of malignant neoplasm of prostate Category: Medical Plan Plan 1. Status Post Prostate Biopsy - Continue monitoring prostate health with repeat PSA testing in six months. - FU with DIEGO Gill Patient Instructions: The patient had an opportunity to ask questions regarding treatment plan. The patient expressed understanding and agreement with the above treatment plan. The patient is aware they should contact our office by phone for worsening of their current condition or the appearance of new symptoms. Compliance is encouraged with any medications and followup testing that is ordered. It is a privilege to be allowed the opportunity to participate in the urologic care of your patient. If you have any questions or concerns regarding treatment for the above conditions please do not hesitate to contact me. The office telephone contact is [phone]. This note is constructed in part using voice recognition software. While every effort has been made to ensure accuracy psychology lecturer errors may have been included. Yours sincerely, Jonathan Muniz MD Scribe Plan - Not visible on output: Patient was informed and verbally consented to the use of an ambient scribe for clinic note documentation during this visit. Coding Level of Care Code Tele Est Pt Level 3 (95613) Diagnoses BPH with elevated PSA N40.0; R97.20 Family history of prostate cancer Z80.42
--- OUTSIDE RECORDS SUMMARY | 2025-03-22 13:26 | XMS_ITS | Encounter Summary ---
Author Organization [employer] Address [address] [facility] [facility] [address]t [place] [address] Care Team Providers Care Premix Concrete Batcher Name Role Phone Alyse Parker MD Primary Care Provider [phone] Reason for Visit * Reason Onset Date Comments Referral 02/22/2025 Encounter Details Date Type Department Care Team ([facility] st Contact Info) Description 02/22/2025 Telephone [facility] [address] [place], [place] [phone] Alyse Parker MD [address] [place], [place] [phone] Referral Social History Tobacco Use Types Packs/Day [...] back regarding prior message Contact pt at [phone] (macanese) * Telephone Encounter - Dominick Mariee - 02/22/2025 2:34 PM EDT Tc from pt requesting a referral for clinical research scientist at the [facility]. Any questions contact pt at [phone] documented in this encounter Plan of Treatment Upcoming Encounters Date Type Department Care Team (Late st Contact Info) Description 04/16/2025 10:15 AM EST Office Visit [facility] [address] [place] [address] Phil Waters MD [address] [place] [address] documented as of this encounter Visit Diagnoses Not on filedocumented in this encounter Additional Health Concerns Assessment Noted Time PHQ-9 Depression Total Score: 3 02/02/20 11:22 AM EDT documented as of this encounter Care Teams Premix Concrete Batcher Relationship Specialty Start Date End Date Alyse Parker MD [address] [place] [address] PCP - General Family Medicine 01/17/23 documented as of this encounter
--- OUTSIDE RECORDS SUMMARY | 2025-03-22 13:26 | XMS_ITS | Encounter Summary ---
Author Organization [employer] Address [address] [facility] [address] [place] [address] Care Team Providers Care Public Health Professor Name Role Phone Alyse Parker MD Primary Care Provider [phone] Encounter Details Date Type Department Care Team (Late Contact Info) Description 11/19/2022 [facility] Information Management [address] [place] [address] Carmen Caceres MD [address] [place] [address] Social History Tobacco Use Types Packs/Day Years [...] Description 04/16/2025 10:15 AM EST Office Visit [facility] [address] [place] [address] Phil Waters MD [address] [place] [address] documented as of this encounter Visit Diagnoses Not on filedocumented in this encounter Care Teams Public Health Professor Relationship Specialty Start Date End Date Alyse Parker MD [address] [place] [address] PCP - General Family Medicine 01/17/23 documented as of this encounter
--- OUTSIDE RECORDS SUMMARY | 2025-03-22 13:26 | XMS_ITS | Encounter Summary ---
Author Organization [employer] Address [address] [facility] [address] [place] [address] Care Team Providers Care Recruiting Consultant Name Role Phone Alyse Parker MD Primary Care Provider [phone] Encounter Details Date Type Department Care Team (Late Contact Info) Description 12/03/2022 Telephone [facility] MED & PEDS [address] [place], [place] [phone] Alyse Parker MD [address] [place], [place] [phone] Social History Tobacco Use Types Packs/Day Years [...] 10:15 AM EST Office Visit [facility] MED & PEDS [address] [place] [address] Phil Waters MD [address] [place] [address] documented as of this encounter Visit Diagnoses Not on filedocumented in this encounter Care Teams Recruiting Consultant Relationship Specialty Start Date End Date Alyse Parker MD [address] [place] [address] PCP - General Family Medicine 01/17/23 documented as of this encounter
--- OUTSIDE RECORDS SUMMARY | 2025-03-22 13:26 | XMS_ITS | Encounter Summary ---
Author Organization [employer] Address [address] [facility] [address] [place] [address] Care Team Providers Care Purchasing Buyer Name Role Phone Alyse Parker MD Primary Care Provider [phone] Reason for Visit * Reason Onset Date Comments New Patient Appt 12/03/2022 Encounter Details Date Type Department Care Team ([facility] st Contact Info) Description 12/03/2022 Telephone [facility] MEDICINE [address] [place] [address] Jones Segal MD [address] [place] [address] New Patient Appt Social History Tobacco Use [...] PAR Mica Long called pt to Offer PARTY PLAN SALESPERSON appt. Pt demographics and insurance information were verified. Pt reports the following medical conditions: Heart Surgery done 5-7 years Ago, High Blood pressure and other chronic conditions. Pt is currently taking medication: Yes ( advice to please bring appt. ) Pt given PARTY PLAN SALESPERSON appt with Dr. Alyse Parker on 01/17/2023 @ 9:30 am. Pt will be sent appt reminder card and medical release form and agrees to complete and to return to medical records prior to PARTY PLAN SALESPERSON appt. * Telephone Encounter - Mica Griggs - 12/03/2022 11:00 AM EDT New Patients Par Mica Long called to schedule New patient appt, pt did not answer left voicemail to give a call at [phone]. documented in this encounter Plan of Treatment Upcoming Encounters Date Type Department Care Team (Late st Contact Info) Description 04/16/2025 10:15 AM EST Office Visit [facility] MED & PEDS [address] [place] [address] Phil Waters MD [address] [place] [address] documented as of this encounter Visit Diagnoses Not on filedocumented in this encounter Care Teams Purchasing Buyer Relationship Specialty Start Date End Date Alyse Parker MD [address] [place] [address] PCP - General Family Medicine 01/17/23 documented as of this encounter
--- OUTSIDE RECORDS SUMMARY | 2025-03-22 13:26 | XMS_ITS | Encounter Summary ---
Author Organization [employer] Address [address] [facility] [address] [place] [address] Care Team Providers Care Analytical Data Scientist Name Role Phone Alyse Parker MD Primary Care Provider [phone] Encounter Details Date Type Department Care Team (Late st Contact Info) Description 04/24/2024 Telephone [facility] MEDICINE [address] [place] [address] Alyse Parker MD [address] [place], [place] [phone] Social History Tobacco Use Types Packs/Day Years [...] 04/16/2025 10:15 AM EST Office Visit [facility] MED & PEDS [address] [place] [address] Phil Waters MD [address] [place] [address] documented as of this encounter Visit Diagnoses Not on filedocumented in this encounter Additional Health Concerns Assessment Noted Time PHQ-9 Depression Total Score: 3 02/02/20 24 11:22 AM EDT documented as of this encounter Care Teams Analytical Data Scientist Relationship Specialty Start Date End Date Alyse Parker MD [address] [place] [address] PCP - General Family Medicine 01/17/23 documented as of this encounter
--- OUTSIDE RECORDS SUMMARY | 2025-03-22 13:27 | XMS_ITS | Clinical Summary ---
Author Organization [email or web address] Address [address] [place] [address] Care Team Providers Care Investigative Agent Name Role Phone Alyse Parker MD Primary Care Provider [phone] Allergies No known active allergies Medications tadalafil [...] A ORAL TODOS LOS D AL ACOSTARSE 5 Active Azelastine HCl 137 MCG/SPRAY solution ADMINISTER 1 SPRAY INTO EACH NOSTRIL 2 TIMES DAILY. USE IN EACH NOSTRIL DIRECTED 30 mL 2 5 Active acetaminophen (Tylenol) 325 MG tabletIndicatio ns:Upper respiratory tract infection, unspecified type Take 2 tablets (650 mg) by mouth every 6 (six) hours if needed for mild pain for up to 10 days. 30 tablet 5 03/23/20 25 Active sodium chloride (Summers Nasal [place]) 0.65 % nasal sprayIndication s:Nasal congestion Administer 1 spray into each nostril if needed for congestion. 30 mL 5 03/13/20 26 Active Active Problems Patient Care Coordination No te Formatting of this note migh t be different from the original. Psychiatry: oCry Garber MD Problem Noted Date Diagnosed Date Dysphasia 03/15/2025 Viral upper respiratory tract infection 01/09/20 25 Assessment & Plan (01/08/2025 3:45 PM EDT): [...] Encounters Date Type Department Care Team Description 03/13/2025 9:30 AM EST Office Visit [facility] MEDICINE [address] [place] [phone] Miri Tom FNP Upper respiratory tract infection, unspecified type (Primary Dx); Dysphasia; Nasal congestion 03/13/2025 Travel 03/13/[address] [address] Alyse Parker MD Nurse Triage 03/07/2025 Orders Only GENERIC EXTERNAL DATA DEPARTMENT Provider, Generic External Data 02/25/2025 Telephone [facility] MED & PEDS [address] [place] [address] Alyse Parker MD 02/22/2025 Telephone [facility] MED & PEDS [address] [place] [address] Alyse Parker MD Referral 02/19/2025 10:45 AM EDT Office Visit [facility] MED & PEDS [address] [place] [address] Phil Waters MD Trichofolliculoma (Primary Dx) 02/19/2025 Travel 02/11/[address] [address] Alyse Parker MD 01/31/2025 3:30 PM EDT Office Visit [facility] MED & PEDS [address] [place] [address] Phil Waters MD Pneumonia of right middle lobe due to infectious organism (Primary Dx) 01/31/2025 Travel 01/31/2025 Telephone [facility] MED & PEDS [address] [place] [address] Alyse Parker MD Nurse Triage 01/27/2025 Orders Only GENERIC EXTERNAL DATA DEPARTMENT Provider, Generic External Data 01/17/2025 Refill [facility] MED [facility] PEDS [address] [place] [address] Alyse Parker MD 01/15/2025 9:30 AM EDT Office Visit [facility] MED & PEDS [address] [place] [address] Phil Waters MD Trichofolliculoma (Primary Dx) 01/15/2025 Travel 01/08/2025 3:20 PM EDT Office Visit [facility] WALK-IN CENTER [address] [place] [phone] Krissy Abraham MD Viral upper respiratory tract infection 01/08/2025 Travel 01/01/[address] [address] Alyse Parker MD ER Follow-up 12/31/2024 Orders Only [facility] External Provider, [facility] from Last 3 Months Immunizations Immunization Administration [...] Sign Reading Time Taken Comments Blood Pressure 120/74 03/13/2025 9:50 AM EST Pulse 70 03/13/2025 9:50 AM EST Temperature 36.6 C (97.8 F) 03/13/2025 9:50 AM EST Respiratory Rate 16 03/13/2025 9:50 AM EST Oxygen Saturation 99% 03/13/2025 9:50 AM EST Inhaled Oxygen Concentration - - Weight 68.9 kg (151 lb 12.8 oz) 03/13/2025 9:50 AM EST Height 167.6 cm (5' 6 ) 02/19/2025 10:4 7 AM EDT Body Mass Index 24.5 02/19/2025 10:47 AM EDT Plan of Treatment Upcoming Encounters Date Type Department Care Team ([facility] st Contact Info) Description 04/16/2025 10:15 AM EST Office Visit [facility] MED & PEDS [address] [place] [address] Phil Waters MD [address] [place] [address] Health Maintenance Due Date Last Done Comments CT Colonography 1955 Colonoscopy 1955 Colorectal Cancer Screening 1955 FIT DNA/Cologuard 1955 FIT 1955 FOBT 1955 Sigmoidoscopy 1955 Alcohol/Substance Use Screening 1965 Zoster Vaccines (2 of 3) 04/14/2015 02/17/2015 COVID-19 Vaccine ( season) 2024 02/15/2024, 04/12/2023, 02/09/2022, Additional history exists Influenza Vaccine (#1) 2024 , 01/17/2023, 02/09/2022, Additional history exists Depression Screening 02/01/2025 02/02/2024, 02/02/20 SDOH Screening 10/17/2025 10/17/2024 Tobacco Screening 03/13/2026 03/13/2025 Lipid Panel 11/23/2029 11/23/2024, 01/01, 02/06/2020 DTaP/Tdap/Td [...] Procedure Name Priority Date/Time Associated Diagnosis Comments POCT INFLUENZA A (ID NOW RAPID MOLECULAR) Routine 03/13/2025 10:28 AM EST Upper respiratory tract infection, unspecified type POCT INFLUENZA B (ID NOW RAPID MOLECULAR) Routine 03/13/2025 10:27 AM EST Upper respiratory tract infection, unspecified type POC GUTIERREZ ID NOW STREP A Routine 03/13/2025 10:26 AM EST Upper respiratory tract infection, unspecified type POCT RAPID COVID ANTIGEN Routine 03/13/2025 10:25 AM EST Upper respiratory tract infection, unspecified type PROSTATE BIOPSY 1-20 Routine 03/07/2025 8:30 AM EST CRYOTHERAPY SKIN LESION Routine 02/19/2025 11:11 AM [...] Recently Relevant to Health Maintenance Results * POCT Rapid Influenza A GUTIERREZ ID NOW (03/13/2025 10:28 AM EST) Only the most recent of2 resultswithin the time period is included. Influenza A Negative Negative, Indeterminate [facility] QC Media Lot # [id number] [facility] Lot# Expiration Date 10,82 [facility] Swab 03/13/2025 10:2 8 AM EST us Miri Okhipo INSTRUMENT TECHNICIAN APPRENTICE POINT OF CARE TEST ENTER/EDIT ORDERABLES Final Result [facility] [address] [place] [phone] * POCT Rapid Influenza B GUTIERREZ ID NOW (03/13/2025 10:27 AM EST) Only the most recent of2 resultswithin the time period is included. Influenza B Negative Negative, Indeterminate [facility] QC Media Lot # [id number] [facility] Lot# Expiration Date 10826 [facility] Swab 03/13/2025 10:2 7 AM EST Miri Telderio INSTRUMENT TECHNICIAN APPRENTICE POINT OF CARE TEST ENTER/EDIT ORDERABLES Final Result Performing Organization Address City/[facility] Co de Phone Number [facility] [address] [place] [phone] * POCT Rapid Strep A GUTIERREZ ID NOW (03/13/2025 10:26 AM EST) [facility] Rapid Strep A Screen Negative Negative, None Detected QC Media Lot # [id number] Lot# Expiration Date 1252 Swab 03/13/2025 10:2 6 AM EST Miri Telderio INSTRUMENT TECHNICIAN APPRENTICE POINT OF CARE TEST ENTER/EDIT ORDERABLES Edited Result - Final * POCT Rapid Covid-19 BinaxNOW (03/13/2025 10:25 AM EST) Only the most recent of2 resultswithin the time period is included. Pathologist [facility] Rapid COVID Ag Negative QC Media Lot # [id number] Lot# Expiration Date 1926 Swab 03/13/2025 10:2 5 AM EST Miri Telderio INSTRUMENT TECHNICIAN APPRENTICE POINT OF CARE TEST ENTER/EDIT ORDERABLES Final Result * Prostate biopsy 1-20 (03/07/2025 8:30 AM EST) 03/07/2025 8:30 AM EST 03/07/2025 10:19 AM EST [facility] - 03/11/2025 11:39 AM EST ----- ------- Name: David Matias Age/Sex: 69/M : 1955 Unit#: [id number] Attend Dr: Juan Mcclure MD Re03/07/25 Status: DEP REF Location: [facility] Disch: ----- ------- SPEC : [id number] RECD: 03/07/25 STATUS: ELLE WHEELER NUM: [id number] AJAY: 03/07/[address] [facility] [address]: Juan Mcclure MD ENTERED: 03/07/25-1047 SP TYPE: Surgical OTHR DR: Alyse Parker MD ORDERED: Prostate biopsy/ Diagnosis Prostate, needle core biopsies: A. Left base lateral: Benign prostatic tissue. B. Left base medial: Benign prostatic tissue. C. Left mid lateral: Benign prostatic tissue. D. Left mid medial: Benign prostatic tissue. E. Left apex lateral: Benign prostatic tissue. F. Left apex medial: Benign prostatic tissue. G. Right base lateral: Benign prostatic tissue. H. Right base medial: Stroma only. I. Right mid lateral: Benign prostatic tissue. J. Right mid medial: Benign prostatic tissue. K. Right apex lateral: Benign prostatic tissue. L. Right apex medial: Benign prostatic tissue. Comment: Scattered foci of inflammation noted. Clinical History Elevated PSA Microscopic Description Microscopic sections reviewed. Material Received A: Left base lateral B: Left base medial C: Left mid lateral D: Left mid medial CONTINUED ON NEXT PAGE ----- ------- Name: David Matias Age/Sex: 69/M : 1955 Unit#: [id number] Attend Dr: Juan Mcclure MD Re03/07/25 Status: DEP REF Location: [facility] Disch: ----- ------- SPEC : [id number] RECD: 03/07/25 STATUS: ELLE WHEELER NUM: [id number] AJAY: 03/07/[address] [facility] [address]: Juan Mcclure MD ENTERED: 03/07/25 SP TYPE: Surgical OTHR DR: Alyse Parker MD ORDERED: Prostate biopsy/12 Material Received (Continued) E: Left apex lateral F: Left apex medial G: Right base lateral H: Right base medial I: Right mid lateral J: Right mid medial K: Right apex lateral L: Right apex medial Gross Description Received in 12 parts. A. Received in formalin labeled left base lateral is a cylindrical portion of white soft tissue measuring 1.3 cm in length with a diameter of 0.02 cm which is entirely submitted for microscopic examination, 1 piece in cassette A. B. Received in formalin labeled left base medial is a cylindrical portion of white soft tissue measuring 1.3 cm in length with a diameter of 0.02 cm which is entirely submitted for microscopic examination, 1 piece in cassette B. C. Received in formalin labeled left mid lateral is a cylindrical portion of white soft tissue measuring 1.4 cm in length with a diameter of 0.02 cm which is entirely submitted for microscopic examination, 1 piece in cassette C. D. Received in formalin labeled left mid medial is a cylindrical portion of white soft tissue measuring 2.0 cm in length with a diameter of 0.02 cm which is entirely submitted for microscopic examination, 1 piece in cassette D. E. Received in formalin labeled left apex lateral is a cylindrical portion of white soft tissue measuring 0.7 cm in length with a diameter of 0.02 cm which is entirely submitted for microscopic examination, 1 piece in cassette E. F. Received in formalin labeled left apex medial is a cylindrical portion of white soft tissue measuring 0.9 cm in length with a diameter of 0.02 cm which is entirely submitted for microscopic examination, 1 piece in cassette F. G. Received in formalin labeled right base lateral is a cylindrical portion of white soft tissue measuring 1.6 cm in length with a diameter of 0.02 cm which is entirely submitted for microscopic examination, 1 piece in cassette G. H. Received in formalin labeled right base medial is a cylindrical portion of white soft tissue measuring 0.8 cm in length with a diameter of 0.02 cm which is entirely submitted for CONTINUED ON NEXT PAGE ----- ------- Name: David Matias Age/Sex: 69/M : 1955 Unit#: [id number] Attend Dr: Juan Mcclure MD Re03/07/25 Status: DEP REF Location: [facility] Disch: ----- ------- SPEC : [id number] RECD: 03/07/25 STATUS: ELLE WHEELER NUM: [id number] AJAY: 03/07/[address] [facility] [address]: Juan Mcclure MD ENTERED: 03/07/25 SP TYPE: Surgical OTHR DR: Alyse Parker MD ORDERED: Prostate biopsy Gross Description ([facility]) microscopic examination, 1 piece in cassette H. I. Received in formalin labeled right mid lateral is a cylindrical portion of white soft tissue measuring 1.7 cm in length with a diameter of 0.02 cm which is entirely submitted for microscopic examination, 1 piece in cassette I. J. Received in formalin labeled right mid medial is a cylindrical portion of white soft tissue measuring 1.5 cm in length with a diameter of 0.02 cm which is entirely submitted for microscopic examination, 1 piece in cassette J. K. Received in formalin labeled right apex lateral is a cylindrical portion of white soft tissue measuring 1.2 cm in length with a diameter of 0.02 cm which is entirely submitted for microscopic examination, 1 piece in cassette K. L. Received in formalin labeled right apex medial is a cylindrical portion of white soft tissue measuring 0.9 cm in length with a diameter of 0.02 cm which is entirely submitted for microscopic examination, 1 piece in cassette L. ([facility]) This case was reviewed intradepartmentally. IHC S/NG Disclaimer NOTE: Unless otherwise stated, all tissue is formalin-fixed and paraffin-embedded. Some or all of the immunohistochemical tests reported herein may have been developed and their performance characteristics determined by [facility]. They have not been cleared or approved by the U.S. Food and Drug Administration (FDA). However, the FDA has determined that such clearance or approval is not necessary. This laboratory is certified under the Clinical Laboratory Improvement Amendments of 1988 (CLIA) as qualified to perform high complexity clinical laboratory testing. Copies To: Juan Mcclure MD [facility] [address] [place] [address] Alyse Parker MD [facility] [address] [place] [address] CONTINUED ON NEXT PAGE ----- ------- Name: David Matias Age/Sex: 69/M : 1955 Unit#: [id number] Attend Dr: Juan Mcclure MD Re03/07/25 Status: [facility] REF Location: [facility] Disch: ----- ------- SPEC : [id number] RECD: 03/07/25 STATUS: ELLE WHEELER NUM: [id number] AJAY: 03/07/[address] [facility] [address]: Juan Mcclure MD ENTERED: 03/07/25 SP TYPE: Surgical OTHR DR: Alyse Parker MD ORDERED: Prostate biopsy/ ----- ------- Signed (signature on file) Cara Holbrook/10/25 1139 ----- ------- END OF REPORT us Generic External Data Provider LAB PATHOLOGY ORD ERABLES Final Result [facility] [address] [place] [phone] * Cryotherapy, skin lesion (02/19/2025 11:11 AM [...] given: No Instructions and paperwork completed: Yes Knickerbocker protocol: Procedure explained and questions answered to [...] AM EDT Narrative 02/07/2025 12:07 PM EDT [address] [address] XRay Report Signed Patient: David Matias MR#: [id number] : 1955 Acct:[id number] Age/Sex: 69 / M ADM Date: 02/07/25 Loc: HO.XRAY Attending Dr: Jonathan Muniz MD Ordering Physician: Phil Watres MD Date of Service: 02/07/25 Procedure(s): XR chest 2V Accession Number(s): [id number] cc: Phil Waters MD; Alyse Parker MD [...] 02/07/25 1204 DD/ 1158 TD/TT: 02/07/25 1158 Ingot Weigher: Procedure Note Donotuseinterpreter, Image - 02/07/[address] [address] XRay Report Signed Patient: David MatiasMR#: [id number] : 1955cct:[id number] Age/Sex: 69 / MADM Date: 02/07/25 Loc: [facility] Attending Dr: Jonathan Muniz MD Ordering Physician: Phil Waters MD Date of Service: 02/07/25 Procedure(s): XR chest 2V Accession Number(s): [id number] cc: Phil Waters MD; Alyse Parker MD [...] 02/07/25 1204 DD/ 1158 TD/TT: 02/07/25 1158 Ingot Weigher: us Phil Waters MD IMG XR PROCEDURES Final Res ult * SARS-CoV-2 RNA, Influenza A/B, and RSV RNA, Ql NAAT (01/27/2025 11:56 AM EDT) Influenza A PCR NEGATIVE Negative [facility] Influenza B PCR NEGATIVE Negative [facility] Resp Syncy Virus RNA Qual PCR NEGATIVE Negative [facility] SARS COV2 PCR NEGATIVE Negative [facility] Comment:All test results mus t [...] use by authorized laboratories.Testing performed on the [email or web address] Gene[employer] utilizingreal-time RT-PCR.All SARS CoV2 and positive influenza A/B results arereported to [facility]. 01/27/2025 11:5 6 AM EDT 01/27/2025 12:06 PM EDT Generic External Data Provider LAB MICROBIOLOGY - GENERAL ORDERABLES Final Result Performing Organization Address [facility] de Phone Number [facility] [address] [place] [phone] * High Sensitivity Troponin I (01/27/2025 10:21 AM EDT) Only the most recent of2 resultswithin the time period is included. [facility] TROPONIN I HIGH SENSITIVITY <2.7 <3.5 - 35.0 ng/L [facility] Comment:The Gutierrez high sens itivity Troponin-I results should beused in conjunction with other diagnostic information suchas ECG, clinical observations and information, and patientsymptoms to aid in the diagnosis of [place]. 01/27/2025 10:2 1 AM EDT 01/27/2025 10:26 AM EDT Generic External Data Provider LAB BLOOD ORDERAB LES Final Result Performing Organization Address [facility] de Phone Number [facility] [address] [place] [phone] * (ABNORMAL) CBC auto differential (01/27/2025 10:21 AM EDT) Only the most recent of2 resultswithin the time period is included. Pathologist [facility] White Blood Count 5.4 4.8 - 10.8 X10*3/uL [facility] Red Blood Count 4.95 4.60 - 5.80 X10*6/uL [facility] Hemoglobin 15.7 14.0 - 18.0 g/dl [facility] Hematocrit 43.9 42.0 - 52.0 % [facility] Mean Corpuscular Volume 88.7 80.0 - 98.0 fL [facility] Mean Corpuscular Hemoglobin 31.7 27.0 - 33.0 pg [facility] Mean Corpuscular HGB Conc 35.8 31.0 - 36.0 g/dl [facility] Red Cell Distribution Width 13.3 11.0 - 16.0 % [facility] Platelet Count 178 160 - 400 X10*3/uL [facility] Mean Platelet Volume 10.0 9.4 - 12.4 fL [facility] Neutrophils Percent Auto 47.2 45 - 73 % [facility] Imm Gran Pct Auto 0.6(H) 0.0 - 0.4 % [facility] Lymphocytes Percent Auto 36.4 20 - 40 % [facility] Monocytes Percent Auto 10.8 2 - 11 % [facility] Eosinophils Percent Auto 4.1(H) 0 - 4 % [facility] Basophils Percent Auto 0.9 0 - 2 % [facility] NRBC Pct Auto 0.0 0.0 - 0.2 /100WBC [facility] Neutrophils Absolute Auto 2.5 2.0 - 8.3 x10*3/uL [facility] Imm Gran Abs Auto 0.03 0.00 - 0.03 X10*3/uL [facility] Lymphocytes Absolute Auto 2.0 1.2 - 4.9 X10*3/uL [facility] Monocytes Absolute Auto 0.6 0.1 - 1.2 X10*3/uL [facility] Eosinophils Absolute Auto 0.2 0.0 - 0.4 X10*3/uL [facility] Basophils Absolute Auto 0.1 0.0 - 0.2 X10*3/uL [facility] NRBC Abs Auto 0.000 0.0 - 0.012 X10*3/uL [facility] 01/27/2025 10:2 1 AM EDT 01/27/2025 10:26 AM EDT us Generic External Data Provider LAB BLOOD ORDERAB LES Final Result [facility] [address] [place], [place] [phone] * (ABNORMAL) Comprehensive Metabolic Panel (01/27/2025 10:21 AM EDT) Only the most recent of2 resultswithin the time period is included. Sodium 137 135 - 145 mmol/L [facility] Potassium 4.0 3.3 - 5.1 mmol/L [facility] Chloride 107 96 - 108 mmol/L [facility] Carbon Dioxide 24 22 - 29 mmol/L [facility] Anion Gap 10(L) 12 - 20 [facility] Urea Nitrogen (BUN) 13 9 - 16 mg/dL [facility] Creatinine, Serum 0.80 0.5 - 1.4 mg/dL [facility] Creatinine Clr Calc Pharmacy 73.6 [facility] Comment:eGFR (calculated fro m the MDRD study equation) and eCrCl(calculated from the Cockcroft-Gault equation) are based ondifferent parameters and may not yield comparable results.If eCrCl result is absurd, please check patient'sheight/weight. Estimated Glomerular Filt Rate >60 [facility] Comment:Chronic Kidney Disea se: Estimated GFR < 60 mL/min/[id number] Kidney Disease: Estimated GFR < 15 mL/min/1.73m2 Glucose 190(H) 60 - 115 mg/dL [facility] Calcium 8.8 8.4 - 10.2 mg/dL [facility] Bilirubin, Total 0.8 0.0 - 1.0 mg/dL [facility] Aspartate Amino Transferase 23 5 - 37 U/L [facility] Alanine Aminotransferase 13 0 - 40 U/L [facility] Total Protein 7.5 6.5 - 8.0 g/dL [facility] Albumin Level 4.0 3.5 - 5.0 g/dL [facility] Alkaline Phosphatase 69 39 - 117 U/L [facility] 01/27/2025 10:2 1 AM EDT 01/27/2025 10:26 AM EDT us Generic External Data Provider LAB BLOOD ORDERAB LES Final Result [facility] [address] [place] [phone] * Cryotherapy, skin lesion (01/15/2025 10:01 [...] given: No Instructions and paperwork completed: Yes Knickerbocker protocol: Procedure explained and questions answered to [...] ORDERABLES F inal Result * XR Chest 1 View (12/31/2024 1:32 PM EDT) Anatomical Region Laterality Modality Chest Radiographic Mary ging 12/31/2024 1:32 PM EDT Narrative 12/31/2024 1:34 PM EDT [address] [address] XRay Report Signed Patient: David Matias MR#: [id number] : 1955 Acct:[id number] Age/Sex: 69 / M ADM Date: 12/31/24 Loc: HO.ED Attending Dr: Ordering Physician: Neftaly Monreal Date of Service: 12/31/24 Procedure(s): XR chest 1V Accession Number(s): [id number] cc: Neftaly Monreal; Alyse Parker MD CLINICAL [...] 12/31/24 1333 DD/ 1332 TD/TT: 12/31/24 1332 Ingot Weigher: Procedure Note Donotuseinterpreter, Image - 12/31/2024 [place] [address] XRay Report Signed Patient: Kelsey Matias#: [id number] : 1955cct:[id number] Age/Sex: 69 / MADM Date: 12/31/24 Loc: .ED Attending Dr: Ordering Physician: Neftaly Monreal Date of Service: 12/31/24 Procedure(s): XR chest 1V Accession Number(s): [id number] cc: Neftaly Monreal; Alyse Parker MD CLINICAL [...] 12/31/24 1333 DD/ 1332 TD/TT: 12/31/24 1332 Ingot Weigher: [facility] External Provider IMG XR PROCEDURES Edited Result - Final * COVID-19 ID NOW (Cloud Cruiser) (12/31/2024 11:06 AM EDT) IDNOW SERIAL# [id number] [facility] COVID-19 TEST Negative Negative [facility] COVID-19 NOTE See Note [facility] Comment: Results are for the identification of SARS-CoV2 RNA. TheSARS-CoV2 RNA is generally detectable in respiratory samplesduring the acute phase of infection. Positive results areindicative of the presence of SARS-CoV-2 RNA; clinicalcorrelation with patient history and other diagnosticinformation is necessary to determine patient infectionstatus. Positive results do not rule out bacterial infectionor co- infection with other viruses.Testing facilities within the [facility] and [facility] are required to report all [...] use by authorized laboratories.Testing performed on the [employer] ID NOW utilizing NAAT. 12/31/2024 11:0 6 AM EDT 12/31/2024 11:11 AM EDT us Generic External Data Provider LAB MOLECULAR SERGIO GNOSTICS ORDERABLES Final Result Performing Organization Address [facility] Co de Phone Number [facility] [address] [place] [phone] * Influenza A B2 ID NOW (Gutierrez) (12/31/2024 11:05 AM EDT) IDNOW SERIAL# [id number] [facility] Influenza A Negative Negative [facility] Influenza B2 Negative Negative [facility] Influenza A B2 Note See Note [facility] Comment:The Gutierrez ID NOW In [...] GENERAL ORDERABLES Final Result Performing Organization Address [facility] Co de Phone Number [facility] [address] [place] [phone] * (ABNORMAL) Strep A Nucleic Acid (12/31/2024 11:05 AM EDT) IDNOW SERIAL# [id number] [facility] Strep A Nucleic Acid Positive(A ) Negative [facility] Comment:All test results mus t [...] GENERAL ORDERABLES Final Result Performing Organization Address [facility] Co de Phone Number [facility] [address] [place] [phone] * Partial Thromboplastin Time, Activated (APTT) (12/31/2024 11:05 AM EDT) Partial Thromboplastin Time 32.7 26.7 - 34.1 SEC [facility] 12/31/2024 11:0 5 AM EDT 12/31/2024 11:11 AM EDT Generic External Data Provider LAB BLOOD ORDERAB LES Final Result Performing Organization Address [facility] de Phone Number [facility] [address] [place] [phone] * (ABNORMAL) Prothrombin Time-INR (12/31/2024 11:05 AM EDT) Prothrombin Time 12.7(H) 10.9 - 12.4 SEC [facility] INTERNATIONAL NORM RATIO 1.1 0.9 - 1.1 [facility] Comment:INTERNATIONAL NORMAL IZED RATIO (INR) [...] ORDERAB LES Final Result Performing Organization Address [facility] Co de Phone Number [facility] [address] [place] [phone] * B Type Natriuretic Peptide (BNP) (12/31/2024 11:05 AM EDT) B Type Natriuretic Peptide 58 <100 pg/mL [facility] 12/31/2024 11:0 5 AM EDT 12/31/2024 11:11 AM EDT us Generic External Data Provider LAB BLOOD ORDERAB LES Final Result Performing Organization Address [facility] Co de Phone Number [facility] [address] [place] [phone] * (ABNORMAL) Lipid Panel, Standard (11/23/2024 8:34 AM EDT) Pathologist [facility] Triglycerides 95 <150 mg/dL [facility] Comment:Desirable Triglyceri de: less than 150 mg/dLBorderline High Triglyceride 150-199 mg/dLHigh Triglyceride: 200-499 mg/dLVery High Triglyceride: greater than or equal to 5OO mg/dL Cholesterol 187 <200 mg/dL [facility] Comment:Desirable Cholestero l: less than 200 mg/dLBorderline High Cholesterol: 200-239 mg/dLHigh Cholesterol: greater than 239 mg/dL LDL Cholesterol Calculated 139(H) <100 mg/dL [facility] Comment:Desirable LDL: less than 100 mg/dLNear Optimal/Above Optimal LDL: 110- 129 mg/dLBorderline High LDL: 130-159 mg/dLHigh LDL: 160-189 mg/dLVery High LDL: greater than or equal to 190 mg/dL HDL Cholesterol 29(L) >40 mg/dL [facility] Comment:Desirable HDL: great er than 40 mg/dL Note: This HDL assay may give artificially low results in patients with liver disease. Blood Venous blood specimen / Unknown 11/23/2024 8:34 AM EDT 11/23/2024 8:34 AM EDT us Alyse Parker MD LAB BLOOD ORDERABLES Final Re sult Performing Organization Address City/[facility]/ZIP Co de Phone Number [facility] [address] [place] [phone] * Hepatitis C Ab (01/26/2023 9:46 AM EDT) Hepatitis C Antibody Nonreactive Nonreactive [facility] Comment:Antibodies to HCV no t detected; does not exclude early acuteHCV infection. Blood 01/26/2023 9:46 AM EDT 01/26/2023 2:42 PM EDT us Alyse Parker MD LAB BLOOD ORDERABLES Final Re sult [facility] [address] [place] [phone] from Last 3 Months or Most Recently Relevant to Health Maintenance Insurance [facility] [employer] (O D-SNP) [employer] [id number] Care Teams Investigative Agent Relationship Specialty Start Date End Date Alyse Parker MD [address] [place] [phone] PCP - General Family Medicine 01/17/23
== END 2025-03-22 15:41 | disposition home or self-care (01) ==
LOC: HO.HUSH 13:06
PROVIDERS: PCP Family Medicine; Visit Provider Urology
DX: N40.0 Benign prostatic hyperplasia without lower urinary tract symptoms (principal); R97.20 Elevated prostate specific antigen [PSA]; Z80.42 Family history of malignant neoplasm of prostate
CPT/HCPCS: 99213

== ENCOUNTER 2025-04-24 11:38 | Outpatient (REF) | payer OTHER, SELFPAY ==
--- NOTE | ~2025-04-24 | US_ITS ---
EXAMINATION: US RETROPERITONEAL COMPLETE (RENAL) CLINICAL INFORMATION: N40.0 - Benign prostatic hyperplasia without lower urinary tract symptoms. COMPARISON: No recent pertinent exams. TECHNIQUE: Real-time imaging of the kidneys and bladder. FINDINGS: RIGHT KIDNEY: 10.0 x 5.3 x 5.0 cm (SAG x AP x TRV). Echogenic focus in the midpole measures 0.5 x 0.5 x 0.4 cm. No hydronephrosis. LEFT KIDNEY: 10.3 x 5.9 x 5.2 cm (SAG x AP x TRV). No renal stones or hydronephrosis. BLADDER: Well-distended and unremarkable. Bilateral ureteral jets are demonstrated. Prevoid bladder volume is 340 ml. Postvoid bladder volume is 18 ml. Prostate gland: Volume of 29.0 ml US/US retroperitoneal comp IMPRESSION: 1. Echogenic focus in the midpole the right kidney likely represents a nonobstructing renal stone. 2. Prostate gland volume of 29.0 ml Electronically signed by: Madeleine Hart MD 04/24/2025 02:09 PM EST
--- OUTSIDE RECORDS SUMMARY | 2025-04-24 11:41 | XMS_ITS | Encounter Summary ---
Author Organization [employer] Address [address] [facility] 7 [place] [address] Care Team Providers Care Binding Printer Name Role Phone Alyse Parker MD Primary Care Provider [phone] Encounter Details Date Type Department Care Team (Late Contact Info) Description 11/19/2022 [facility] [employer] Information Management [address] [place] [address] Carmen Caceres MD [address] [place] [address] Social History Tobacco Use Types Packs/Day Years [...] Department Care Team (Late Contact Info) Description 06/18/2025 10:30 AM EST Office Visit [facility] MED & PEDS [address] [place] [address] Phil Waters MD [address] [place] [address] documented as of this encounter Visit Diagnoses Not on filedocumented in this encounter Care Teams Binding Printer Relationship Specialty Start Date End Date Alyse Parker MD [address] [place] [address] PCP - General Family Medicine 01/17/23 documented as of this encounter
--- OUTSIDE RECORDS SUMMARY | 2025-04-24 11:42 | XMS_ITS | Encounter Summary ---
Author Organization [employer] Address [address] [facility] 7t [place] [address] Care Team Providers Care Safety Net Maker Name Role Phone Alyse Parker MD Primary Care Provider [phone] Reason for Visit * Reason Onset Date Comments New Patient Appt 12/03/2022 Encounter Details Date Type Department Care Team ([facility] st Contact Info) Description 12/03/[address] [facility] MEDICINE [address] [place] [address] Jones Segal MD [address] [place] [address] New Patient Appt Social History Tobacco Use [...] PAR Mica Long called pt to Offer MIXER OPERATOR TABLETS appt. Pt demographics and insurance information were verified. Pt reports the following medical conditions: Heart Surgery done 5-7 years Ago, High Blood pressure and other chronic conditions. Pt is currently taking medication: Yes ( advice to please bring appt. ) Pt given MIXER OPERATOR TABLETS appt with Dr. Alyse Parker on 01/17/2023 @ 9:30 am. Pt will be sent appt reminder card and medical release form and agrees to complete and to return to medical records prior to MIXER OPERATOR TABLETS appt. * Telephone Encounter - Mica Griggs - 12/03/2022 11:00 AM EDT New Patients Par Mica Long called to schedule New patient appt, pt did not answer left voicemail to give a call at [phone]. documented in this encounter Plan of Treatment Upcoming Encounters Date Type Department Care Team (Late st Contact Info) Description 06/18/2025 10:30 AM EST Office Visit [facility] MED & PEDS [address] [place] [address] Phil Waters MD [address] [place], [place] [phone] documented as of this encounter Visit Diagnoses Not on filedocumented in this encounter Care Teams Safety Net Maker Relationship Specialty Start Date End Date Alyse Parker MD [address] [place] [phone] PCP - General Family Medicine 01/17/23 documented as of this encounter
--- OUTSIDE RECORDS SUMMARY | 2025-04-24 11:42 | XMS_ITS | Encounter Summary ---
Author Organization [employer] Address [address] [facility] [address] [place] [address] Care Team Providers Care Plane Tender Name Role Phone Alyse Parker MD Primary Care Provider [phone] Encounter Details Date Type Department Care Team (Late st Contact Info) Description 04/24/2024 Telephone [facility] MEDICINE [address] [place] [address] Alyse Parker MD [address] [place], [place] [phone] Social History Tobacco Use Types Packs/Day Years [...] Description 06/18/2025 10:30 AM EST Office Visit [facility] MED & PEDS [address] [place] [address] Phil Waters MD [address] [place] [address] documented as of this encounter Visit Diagnoses Not on filedocumented in this encounter Additional Health Concerns Assessment Noted Time PHQ-9 Depression Total Score: 3 02/02/20 24 11:22 AM EDT documented as of this encounter Care Teams Plane Tender Relationship Specialty Start Date End Date Alyse Parker MD [address] [place] [address] PCP - General Family Medicine 01/17/23 documented as of this encounter
--- OUTSIDE RECORDS SUMMARY | 2025-04-24 11:42 | XMS_ITS | Encounter Summary ---
Author Organization [employer] Address [address] [facility] 7t [place] [address] Care Team Providers Care Vulcanizing Press Operator Name Role Phone Alyse Parker MD Primary Care Provider [phone] Reason for Visit * Reason Comments Med Refill Encounter Details Date Type Department Care Team ([facility] Contact Info) Description 04/18/2025 Refill [facility] CHC MED & PEDS [address] [place], [place] [phone] Alyse Parker MD [address] [place], [place] [phone] Nasal congestion Social History Tobacco Use Types Packs/Day Years [...] Upcoming Encounters Date Type Department Care Team ([facility] st Contact Info) Description 06/18/2025 10:30 AM EST Office Visit [facility] MED & PEDS [address] [place] [address] Phil Waters MD [address] [place] [address] documented as of this encounter Visit Diagnoses Diagnosis Nasal congestion Other diseases of nasal cavity and sinuses documented in this encounter Additional Health Concerns Assessment Noted Time PHQ-9 Depression Total Score: 3 02/02/20 24 11:22 AM EDT documented as of this encounter Care Teams Vulcanizing Press Operator Relationship Specialty Start Date End Date Alyse Parker MD [address] [place] [phone] PCP - General Family Medicine 01/17/23 documented as of this encounter
--- OUTSIDE RECORDS SUMMARY | 2025-04-24 11:42 | XMS_ITS | Encounter Summary ---
Author Organization [employer] Address [address] [facility] 7t [place] [address] Care Team Providers Care Candy Dipper Name Role Phone Alyse Parker MD Primary Care Provider [phone] Reason for Visit * Reason Onset Date Comments Referral 02/22/2025 Encounter Details Date Type Department Care Team ([facility] st Contact Info) Description 02/22/2025 Telephone [facility] MED [facility] PEDS [address] [place], [place] [phone] Alyse Parker MD [address] [place], [place] [phone] Referral Social History Tobacco Use Types Packs/Day [...] back regarding prior message Contact pt at [phone] (zimbabwean) * Telephone Encounter - Dominick Mariee - 02/22/2025 2:34 PM EDT Tc from pt requesting a referral for blueprint assembler at the [facility]. Any questions contact pt at [phone] documented in this encounter Plan of Treatment Upcoming Encounters Date Type Department Care Team (Late st Contact Info) Description 06/18/2025 10:30 AM EST Office Visit [facility] CHC MED & PEDS [address] [place] [address] Phil Waters MD [address] [place] [address] documented as of this encounter Visit Diagnoses Not on filedocumented in this encounter Additional Health Concerns Assessment Noted Time PHQ-9 Depression Total Score: 3 02/02/20 11:22 AM EDT documented as of this encounter Care Teams Candy Dipper Relationship Specialty Start Date End Date Alyse Parker MD [address] [place] [address] PCP - General Family Medicine 01/17/23 documented as of this encounter
--- OUTSIDE RECORDS SUMMARY | 2025-04-24 11:42 | XMS_ITS | Encounter Summary ---
Author Organization [employer] Address [address] [facility] 7t [place] [address] Care Team Providers Care Contract Specialist Name Role Phone Alyse Parker MD Primary Care Provider [phone] Encounter Details Date Type Department Care Team (Late Contact Info) Description 12/03/2022 Telephone [facility] MED & PEDS [address] [place], [place] [phone] Alyse Parker MD [address] [place], [place] [phone] Social History Tobacco Use Types Packs/Day Years [...] Description 06/18/2025 10:30 AM EST Office Visit [facility] MED & PEDS [address] [place] [address] Phil Waters MD [address] [place] [address] documented as of this encounter Visit Diagnoses Not on filedocumented in this encounter Care Teams Contract Specialist Relationship Specialty Start Date End Date Alyse Parker MD [address] [place] [phone] PCP - General Family Medicine 01/17/23 documented as of this encounter
--- OUTSIDE RECORDS SUMMARY | 2025-04-24 11:42 | XMS_ITS | Encounter Summary ---
Author Organization [employer] Address [address] [facility] 7t [place] [address] Care Team Providers Care Life Insurance Sales Name Role Phone Alyse Parker MD Primary Care Provider [phone] Reason for Visit * Reason Comments Med Refill Encounter Details Date Type Department Care Team ([facility] st Contact Info) Description 04/18/2025 Refill [facility] MEDICINE [address] [place] [address] Miri Tom FNP [address] [place], [place] [phone] Nasal congestion Social History Tobacco Use Types [...] Description 06/18/2025 10:30 AM EST Office Visit [facility] MED & PEDS [address] [place] [address] Phil Waters MD [address] [place] [address] documented as of this encounter Visit Diagnoses Diagnosis Nasal congestion Other diseases of nasal cavity and sinuses documented in this encounter Additional Health Concerns Assessment Noted Time PHQ-9 Depression Total Score: 3 02/02/20 24 11:22 AM EDT documented as of this encounter Care Teams Life Insurance Sales Relationship Specialty Start Date End Date Alyse Parker MD [address] [place] [phone] PCP - General Family Medicine 01/17/23 documented as of this encounter
--- OUTSIDE RECORDS SUMMARY | 2025-04-24 11:42 | XMS_ITS | Clinical Summary ---
Author Organization [employer] Address [address] [facility] [address] [place] [address] Care Team Providers Care Vehicle Technician Name Role Phone Alyse Parker MD Primary Care Provider [phone] Allergies No known active allergies Medications tadalafil [...] JOELLEN TABLETA TODOS [place] D [place] JESSIE CUANDO SEA NECESARIO 12/16/19 23 Active [...] LOS D AL ACOSTARSE 10/04/19 25 Active Azelastine HCl 137 MCG/SPRAY solution ADMINISTER 1 SPRAY INTO EACH NOSTRIL 2 TIMES DAILY DIRECTED 30 mL 1 04/19/20 25 Active sodium chloride (Gray Nasal [place]) 0.65 % nasal sprayIndicati ons:Nasal congestion ADMINISTER 1 SPRAY INTO EACH NOSTRIL IF NEEDED FOR CONGESTION 30 mL 04/19/20 25 Active Azelastine HCl 137 MCG/SPRAY solution ADMINISTER 1 SPRAY INTO EACH NOSTRIL 2 TIMES DAILY. USE IN EACH NOSTRIL DIRECTED 30 mL 2 01/18/20 25 025 Discontinued sodium chloride (Gray Nasal [place]) 0.65 % nasal sprayIndicati ons:Nasal congestion Administer 1 spray into each nostril if needed for congestion. 30 mL 03/13/20 25 025 Discontinued(R eorder (will not trigger notification to Pharmacy)) Active Problems Patient Care Coordination No te Formatting of this note migh t be different from the original. Psychiatry: Cory Garber MD Problem Noted Date Diagnosed Date Dysphasia 03/15/2025 Viral upper respiratory tract infection 01/09/20 Assessment [...] Encounters Date Type Department Care Team Description 04/18/2025 Refill [facility] MEDIC[facility] [address] [place], [place] [phone] Miri Tom FNP Nasal congestion 04/18/2025 Refill [facility] PEDS [address] [place] [address] Alyse Parker MD Nasal congestion 04/16/2025 10:15 AM EST Office Visit [facility]ED[facility] [address] [place] [address] Phil Waters MD Trichofolliculoma (Primary Dx) 04/16/2025 Travel 03/13/2025 9:30 AM EST Office Visit [address] [address] Miri Tom FNP Upper respiratory tract infection, unspecified type (Primary Dx); Dysphasia; Nasal congestion 03/13/2025 Travel 03/13/[address] [address] Alyse Parker MD Nurse Triage 03/07/2025 Orders Only GENERIC EXTERNAL DATA DEPARTMENT Provider, Generic External Data 02/25/2025 Telephone [facility] P[facility] [address] [place] [address] Alyse Parker MD 02/22/2025 Telephone [facility] [address] [place] [address] Alyse Parker MD Referral 02/19/2025 10:45 AM EDT Office Visit [facility]ED[facility] [address] [place] [address] Phil Waters MD Trichofolliculoma (Primary Dx) 02/19/2025 Travel 02/11/[address] [address] Alyse Parker MD 01/31/2025 3:30 PM EDT Office Visit [facility] [address] [place] [address] Phil Waters MD Pneumonia of right middle lobe due to infectious organism (Primary Dx) 01/31/2025 Travel 01/31/2025 Telephone [facility] [address] [place] [address] Alyse Parker MD Nurse Triage 01/27/2025 Orders Only GENERIC EXTERNAL DATA DEPARTMENT Provider, Generic External Data from Last 3 Months Immunizations Immunization Administration [...] Sign Reading Time Taken Comments Blood Pressure 132/83 04/16/2025 10:10 AM EST Pulse 64 04/16/2025 10:10 AM EST Temperature 36.9 C (98.4 F) 04/16/2025 10:10 AM EST Respiratory Rate 20 04/16/2025 10:10 AM EST Oxygen Saturation 98% 04/16/2025 10:10 AM EST Inhaled Oxygen Concentration - - Weight 68 kg (150 lb) 04/16/2025 10:10 AM EST Height 167.6 cm (5' 6 ) 04/16/2025 10:10 AM EST Body Mass Index 24.21 04/16/2025 10:10 AM EST Plan of Treatment Upcoming Encounters Date Type Department Care Team (Late st Contact Info) Description 06/18/2025 10:30 AM EST Office Visit [facility] [address], [place] [phone] Phil Waters MD [address] [place] [address] Health Maintenance Due Date Last Done Comments [...] 24 SDOH Screening 10/17/2025 10/17/2024 Tobacco Screening 04/16/2026 04/16/2025 Lipid Panel 11/23/2029 11/23/2024, 0910/2022, 02/06/2020 DTaP/Tdap/Td [...] Associated Diagnosis Comments CRYOTHERAPY SKIN LESION Routine 04/16/2025 10:36 AM EST Trichofolliculoma POCT INFLUENZA A (ID NOW RAPID MOLECULAR) [...] AUTO DIFFERENTIAL Routine 01/27/2025 10:21 AM EDT LIPID PANEL, STANDARD Routine 11/23/2024 8:34 AM EDT Hypertension, unspecified type HEPATITIS C ANTIBODY Routine 01/26/2023 9:46 AM EDT Encounter for health-related screening from Last 3 Months or Most Recently Relevant to Health Maintenance Results * Cryotherapy, skin lesion (04/16/2025 10:36 AM EST) Phil Parish MD - 04/16/2025 10:36 AM EST Phil Waters MD 04/16/2025 10:38 AM Cryotherapy, skin lesion Date/Time: 04/16/2025 10:36 AM Performed by: Phil Waters MD Authorized by: Phil Waters MD Consent: Consent obtained: Written Consent given by: Parent Procedure risks and benefits discussed: Yes Patient questions answered: No Patient agrees, verbalizes understanding, and wants to proceed: No Educational handouts given: No Instructions and paperwork completed: Yes Ackley protocol: Procedure explained and questions answered to patient or proxy's satisfaction: yes Relevant documents present and verified: no Test results available: no Imaging studies available: no Required blood products, implants, devices, and special equipment available: no Site/side marked: no Immediately prior to procedure, a time out was called: yes Patient identity confirmed: Verbally with patient Indications: Indications: Scalp lesion- Trichofolliculoma Sedation: Sedation type: None Anesthesia: Anesthesia method: None Procedure specific details: Cryotherapy as per protocole Post-procedure details: Procedure completion: Tolerated well, no immediate complications Phil Waters MD DERM PROCEDURE ORDERABLES F inal Result * POCT Rapid Influenza A GUTIERREZ ID NOW (03/13/2025 10:28 AM EST) Influenza A Negative Negative, Indeterminate [facility] QC Media Lot # [id number] [facility] Lot# Expiration Date [facility] Swab 03/13/2025 10:2 8 AM EST Result [facility] Miri Okhipo PRISON PSYCHIATRIST POINT OF CARE TEST ENTER/EDIT ORDERABLES Final Result Performing Organization Address City/State/[facility] Co de Phone Number [facility] [address] [place] [phone] * POCT Rapid Influenza B GUTIERREZ ID NOW (03/13/2025 10:27 AM EST) Influenza B Negative Negative, Indeterminate [facility] QC Media Lot # [id number] [facility] Lot# Expiration Date [facility] Swab 03/13/2025 10:2 7 AM EST us Miri Okhipo PRISON PSYCHIATRIST POINT OF CARE TEST ENTER/EDIT ORDERABLES Final Result [facility] [address] [place] [phone] * POCT Rapid Strep A GUTIERREZ ID NOW (03/13/2025 10:26 AM EST) Rapid Strep A Screen Negative Negative, None Detected QC Media Lot # [id number] Lot# Expiration Date Swab 03/13/2025 10:2 6 AM EST us Miri Okhipo PRISON PSYCHIATRIST POINT OF CARE TEST ENTER/EDIT ORDERABLES Edited Result - Final * POCT Rapid Covid-19 BinaxNOW (03/13/2025 10:25 AM EST) Pathologist [facility] Rapid COVID Ag Negative QC Media Lot # [id number] Lot# Expiration Date Swab 03/13/2025 10:2 5 AM EST us Miri Okhipo PRISON PSYCHIATRIST POINT OF CARE TEST ENTER/EDIT ORDERABLES Final Result * Prostate biopsy 1-20 (03/07/2025 8:30 AM EST) 03/07/2025 8:30 AM EST 03/07/2025 10:19 AM EST Narrative [facility] - 03/11/2025 11:39 AM EST ----- ------- Name: David Matias Age/Sex: 69/M : 1955 Unit#: [id number] Attend Dr: Juan Mcclure MD Re03/07/25 Status: DEP REF Location: [facility] Disch: ----- ------- SPEC : [id number] RECD: 03/07/25 STATUS: ELLE WHEELER NUM: [id number] AJAY: 03/07/[address] [facility] [address]: Juan Mcclure MD ENTERED: 03/07/25 [...] Name: David Matias Age/Sex: 69/M [facility] 1955 [id number]#: [id number] Attend Dr: Juan Mcclure MD Re03/07/25 Status: DEP REF Location: [facility] Disch: ----- ------- SPEC : [id number] RECD: 03/07/25 STATUS: ELLE WHEELER NUM: [id number] AJAY: 03/07/[address] [facility] [address]: Juan Mcclure MD ENTERED: 03/07/25 SP TYPE: Surgical OTHR DR: Alyse Parker MD ORDERED: Prostate biopsy Material Received (Continued) E: Left apex lateral [...] CONTINUED ON NEXT PAGE ----- ------- Name: Aneesh RamseyDavid Age/Sex: 69/M : 1955 Unit#: [id number] Attend Dr: Juan Mcclure MD Re03/07/25 Status: DEP REF Location: [facility] Disch: ----- ------- SPEC : [id number] RECD: 03/07/25 STATUS: ELLE WHEELER NUM: [id number] AJAY: 03/07/[address] [facility] [address]: Juan Mcclure MD ENTERED: 03/07/25 SP TYPE: Surgical OTHR DR: Alyse Parker MD ORDERED: Prostate biopsy Gross Description (Continued) microscopic examination, 1 piece in cassette H. [...] microscopic examination, 1 piece in cassette L. ([facility]) This case was reviewed intradepartmentally. IHC S/NG Disclaimer NOTE: Unless otherwise stated, all tissue is formalin-fixed and paraffin-embedded. Some or all of the immunohistochemical tests reported herein may have been developed and their performance characteristics determined by [facility]. They have not been cleared or approved by the U.S. Food and Drug Administration (FDA). However, the FDA has determined that such clearance or approval is not necessary. This laboratory is certified under the Clinical Laboratory Improvement Amendments of 1988 (CLIA) as qualified to perform high complexity clinical laboratory testing. Copies To: Juan Mcclure MD [facility] [place] [facility] [address] [place] [address] Alyse Parker MD [address] [address] CONTINUED ON NEXT PAGE ----- ------- Name: David Matias Age/Sex: 69/M : 1955 Unit#: [id number] Attend Dr: Juan Mcclure MD Re03/07/25 Status: DEP REF Location: [facility] Disch: ----- ------- SPEC : [id number] RECD: 03/07/25 STATUS: ELLE WHEELER NUM: [id number] AJAY: 03/07/[address] [facility] [address]: Juan Mcclure MD ENTERED: 03/07/25 SP TYPE: Surgical OTHR DR: Alyse Parker MD ORDERED: Prostate biopsy/ ----- ------- Signed (signature on file) [place]a [place] 03/11/25 1139 ----- ------- END OF REPORT us Generic External Data Provider LAB PATHOLOGY ORD ERABLES Final Result [facility] [address] [place] [phone] * Cryotherapy, skin lesion (02/19/2025 11:11 [...] given: No Instructions and paperwork completed: Yes Ackley protocol: Procedure explained and questions answered to [...] AM EDT Narrative 02/07/2025 12:07 PM EDT [place] [address] XRay Report Signed Patient: David Matias MR#: [id number] : 1955 Acct:[id number] Age/Sex: 69 / M ADM Date: 02/07/25 Loc: [facility] Attending Dr: Jonathan Muniz MD Ordering Physician: Phil Waters MD Date of Service: 02/07/25 Procedure(s): XR chest 2V Accession Number(s): [id number] cc: Pihl Waters MD; Alyse Parker MD Reason for [...] 02/07/25 1204 DD/ 1158 TD/TT: 02/07/25 1158 Cart Pusher: Procedure Note Donotuseinterpreter, Image - 02/07/2025 [place] [address] XRay Report Signed Patient: Kelsey Matias#: [id number] : 4Acct:[id number] Age/Sex: 69 / MADM Date: 02/07/25 Loc: [facility] Attending Dr: Jonathan Muniz MD Ordering Physician: Phil Waters MD Date of Service: 02/07/25 Procedure(s): XR chest 2V Accession Number(s): [id number] cc: Phil Waters MD; Alyse Parker MD [...] 02/07/25 1204 DD/ 1158 TD/TT: 02/07/25 1158 Cart Pusher: us Phil Waters MD IMG XR PROCEDURES Final Res ult * SARS-CoV-2 RNA, Influenza A/B, and RSV RNA, Ql NAAT (01/27/2025 11:56 AM EDT) Influenza A PCR NEGATIVE Negative [facility] Influenza B PCR NEGATIVE Negative [facility] Resp Syncy Virus RNA Qual PCR NEGATIVE Negative [facility] SARS COV2 PCR NEGATIVE Negative [facility] Comment:All test results mus t [...] use by authorized laboratories.Testing performed on the [employer] GeneXpert utilizingreal-time RT-PCR.All SARS CoV2 and positive influenza A/B results arereported to [facility]. 01/27/2025 11:5 6 AM EDT 01/27/2025 12:06 PM EDT us Generic External Data Provider LAB MICROBIOLOGY - GENERAL ORDERABLES Final Result [facility] [address] [place] [phone] * High Sensitivity Troponin I (01/27/2025 10:21 AM EDT) TROPONIN I HIGH SENSITIVITY <2.7 <3.5 - 35.0 ng/L [facility] Comment:The Gutierrez high sens itivity Troponin-I results should beused in conjunction with other diagnostic information suchas ECG, clinical observations and information, and patientsymptoms to aid in the diagnosis of PA. 01/27/2025 10:2 1 AM EDT 01/27/2025 10:26 AM EDT us Generic External Data Provider LAB BLOOD ORDERAB LES Final Result [facility] [address] [place] [phone] * (ABNORMAL) CBC auto differential (01/27/2025 10:21 AM EDT) White Blood Count 5.4 4.8 - 10.8 X10*3/uL [facility] Red Blood Count 4.95 4.60 - 5.80 X10*6/uL [facility] Hemoglobin 15.7 14.0 - 18.0 g/dl [facility] Hematocrit 43.9 42.0 - 52.0 % [facility] Mean Corpuscular Volume 88.7 80.0 - 98.0 fL [facility] Mean Corpuscular Hemoglobin 31.7 27.0 - 33.0 pg [facility] Mean Corpuscular HGB Conc 35.8 31.0 - 36.0 g/dl [facility] Red Cell Distribution Width 13.3 11.0 - 16.0 % [facility] Platelet Count 178 160 - 400 X10*3/uL [facility] Mean Platelet Volume 10.0 9.4 - 12.4 fL [facility] Neutrophils Percent Auto 47.2 45 - 73 % [facility] Imm Gran Pct Auto 0.6(H) 0.0 - 0.4 % [facility] Lymphocytes Percent Auto 36.4 20 - 40 % [facility] Monocytes Percent Auto 10.8 2 - 11 % [facility] Eosinophils Percent Auto 4.1(H) 0 - 4 % [facility] Basophils Percent Auto 0.9 0 - 2 % [facility] NRBC Pct Auto 0.0 0.0 - 0.2 /100WBC [facility] Neutrophils Absolute Auto 2.5 2.0 - 8.3 x10*3/uL [facility] Imm Gran Abs Auto 0.03 0.00 - 0.03 X10*3/uL [facility] Lymphocytes Absolute Auto 2.0 1.2 - 4.9 X10*3/uL [facility] Monocytes Absolute Auto 0.6 0.1 - 1.2 X10*3/uL [facility] Eosinophils Absolute Auto 0.2 0.0 - 0.4 X10*3/uL [facility] Basophils Absolute Auto 0.1 0.0 - 0.2 X10*3/uL [facility] NRBC Abs Auto 0.000 0.0 - 0.012 X10*3/uL [facility] 01/27/2025 10:2 1 AM EDT 01/27/2025 10:26 AM EDT us Generic External Data Provider LAB BLOOD ORDERAB LES Final Result [facility] [address] [place] [phone] * (ABNORMAL) Comprehensive Metabolic Panel (01/27/2025 10:21 AM EDT) Sodium 137 135 - 145 mmol/L [facility] Potassium 4.0 3.3 - 5.1 mmol/L [facility] Chloride 107 96 - 108 mmol/L [facility] Carbon Dioxide 24 22 - 29 mmol/L [facility] Anion Gap 10(L) 12 - 20 [facility] Urea Nitrogen (BUN) 13 9 - 16 mg/dL [facility] Creatinine, Serum 0.80 0.5 - 1.4 mg/dL [facility] Creatinine Clr Calc Pharmacy 73.6 [facility] Comment:eGFR (calculated fro m the MDRD study equation) and eCrCl(calculated from the Cockcroft-Gault equation) are based ondifferent parameters and may not yield comparable results.If eCrCl result is absurd, please check patient'sheight/weight. Estimated Glomerular Filt Rate >60 [facility] Comment:Chronic Kidney Disea se: Estimated GFR < 60 mL/min/1.44i6Dqewde Kidney Disease: Estimated GFR < 15 mL/min/1.73m2 Glucose 190(H) 60 - 115 mg/dL [facility] Calcium 8.8 8.4 - 10.2 mg/dL [facility] Bilirubin, Total 0.8 0.0 - 1.0 mg/dL [facility] Aspartate Amino Transferase 23 5 - 37 U/L [facility] Alanine Aminotransferase 13 0 - 40 U/L [facility] Total Protein 7.5 6.5 - 8.0 g/dL [facility] Albumin Level 4.0 3.5 - 5.0 g/dL [facility] Alkaline Phosphatase 69 39 - 117 U/L [facility] 01/27/2025 10:2 1 AM EDT 01/27/2025 10:26 AM EDT us Generic External Data Provider LAB BLOOD ORDERAB LES Final Result [facility] [address] [place] [phone] * (ABNORMAL) Lipid Panel, Standard (11/23/2024 8:34 AM EDT) Triglycerides 95 <150 mg/dL [facility] Comment:Desirable Triglyceri de: less than 150 mg/dLBorderline High Triglyceride 150-199 mg/dLHigh Triglyceride: 200-499 mg/dLVery High Triglyceride: greater than or equal to 5OO mg/dL Cholesterol 187 <200 mg/dL [facility] Comment:Desirable Cholestero l: less than 200 mg/dLBorderline High Cholesterol: 200-239 mg/dLHigh Cholesterol: greater than 239 mg/dL LDL Cholesterol Calculated 139(H) <100 mg/dL [facility] Comment:Desirable LDL: less than 100 mg/dLNear Optimal/Above Optimal LDL: 110- 129 mg/dLBorderline High LDL: 130-159 mg/dLHigh LDL: 160-189 mg/dLVery High LDL: greater than or equal to 190 mg/dL HDL Cholesterol 29(L) >40 mg/dL [facility] Comment:Desirable HDL: great er than 40 mg/dL Note: This HDL assay may give artificially low results in patients with liver disease. Blood Venous blood specimen / Unknown 11/23/2024 8:34 AM EDT 11/23/2024 8:34 AM EDT us Alyse Parker MD LAB BLOOD ORDERABLES Final Re sult Performing Organization Address [facility] Co de Phone Number [facility] [address] [place] [phone] * Hepatitis C Ab (01/26/2023 9:46 AM EDT) Hepatitis C Antibody Nonreactive Nonreactive [facility] Comment:Antibodies to HCV no t detected; does not exclude early acuteHCV infection. Blood 01/26/2023 9:46 AM EDT 01/26/2023 2:42 PM EDT us Alyse Parker MD LAB BLOOD ORDERABLES Final Re sult Performing Organization Address [facility] Co de Phone Number [facility] [address] [place] [phone] from Last 3 Months or Most Recently Relevant to Health Maintenance Insurance [facility] [employer] (O D-SNP) [employer] [id number] Care Teams Vehicle Technician Relationship Specialty Start Date End Date Alyse Parker MD [address] [place] [address] PCP - General Family Medicine 01/17/23
== END 2025-04-24 11:39 | disposition home or self-care (01) ==
LOC: HO.US 11:38
PROVIDERS: PCP Family Medicine; Visit Provider Urology
DX: N40.0 Benign prostatic hyperplasia without lower urinary tract symptoms (principal); R97.20 Elevated prostate specific antigen [PSA]
CPT/HCPCS: 76770

== ENCOUNTER → 2025-04-24 11:40 | Outpatient (BNV) | payer OTHER, SELFPAY | PROVIDERS: PCP Family Medicine; Visit Provider Radiology Body Imaging | DX: N40.0 Benign prostatic hyperplasia without lower urinary tract symptoms (principal) | CPT/HCPCS: 76770 ==